=== PATIENT | female | born 1940 | race Caucasian/White ===

== ENCOUNTER 2016-11-14 18:56 | Inpatient (IN) ==
--- OUTSIDE RECORDS SUMMARY | 2016-11-14 19:11 | External Medical Summary | Referral Summary ---
:1940 Author Organization [facility] Address [address] [place] [address] Care Team Providers Name Role Phone Kvng Andrew Primary Care Physician Encounter VC Date(s): 01/20/15 - 01/20/15 [facility] [address] [place] [address]- [place] Discharge Diagnosis: Plantar fasciitis of right foot Discharge Disposition: 01-Home or Self Care Attending Physician: Surya Shah DPM Admitting Physician: Surya Shah DPM Referring Physician: Kvng Andrew MD Vital Signs No data available for this section Problem List Condition Effective Dates Status Health Status Informant Allergic rhinitis due to other Active allergen(Confirmed) Allergic rhinitis due to other Active allergen(Confirmed) Allergies(Confirmed) Resolved Asthma(Confirmed) Resolved BRCA gene positive(Confirmed) Active Cancer of breast(Confirmed) Active Hay fever(Confirmed) Active Hypothyroidism (disorder)(Confirmed) Active Mixed hyperlipidemia(Confirmed) Active Asthma without status asthmaticus Active (disorder)(Confirmed) Osteoporosis(Confirmed) Resolved Postsurgical Active hypothyroidism(Confirmed) Swelling of limb Active (finding)(Confirmed) Allergies, Adverse Reactions, Alerts Substance Reaction Severity Status aspirin uNspecfied Active divalproex sodium uNspecfied Active risperiDONE Active simvastatin Active Medications Astelin 137 mcg/inh nasal spray 2 sprays, Nasal, BID, # 1 Each, 11 Refill(s) Start Date: 07/21/14 Status: Orderedatorvastatin 10 mg oral tablet 1 tabs, Oral, Daily, # 90 tabs, 3 Refill(s) Start Date: 01/24/14 Status: OrderedAyr Saline Nasal Mist sprays, Nasal, QID, 0 Refill(s) Start Date: 01/12/15 Status: Orderedcalcium gluconate 500 mg oral tablet 1 tabs, Oral, TID, # 100 tabs, 0 Refill(s) Start Date: 09/28/13 Status: Orderedcetirizine 10 mg oral tablet 10 mg 1 tabs, Oral, Daily, # 30 tabs, 0 Refill(s) Start Date: 01/12/15 Status: Orderedfluticasone 50 mcg/inh nasal spray 2 sprays, Nasal, BID, # 3 bottles, 3 Refill(s) Start Date: 01/24/14 Status: Orderedmeloxicam 7.5 mg oral tablet 7.5 mg 1 tabs, Oral, Daily, # 30 tabs, 3 Refill(s), Pharmacy: [facility], 1 tabs Oral Daily Start Date: 01/20/15 Status: OrderedMoviPrep oral powder for reconstitution 4,000 mL, Oral, Daily, as directed on package labeling, # 4,000 mL, 0 Refill(s) , Pharmacy: [facility] Start Date: 07/01/14 Status: Orderedmultivitamin 1 tabs, Oral, Daily, 0 Refill(s) Start Date: 09/28/13 Status: OrderedProlia 60 mg, SubCutaneous, q6mo, DX M81.0 See order comments and scanned documents for details, 0 Refill(s) Start Date: 01/17/15 Status: OrderedRefresh Dry Eye Therapy ophthalmic solution 1 drops, Eye-Both, BID, as needed for dry eyes, # 30 mL, 0 Refill(s) Start Date: 09/28/13 Status: OrderedSingulair 10 mg oral tablet 10 mg 1 tabs, Oral, qPM, as needed for allergies, 0 Refill(s) Start Date: 01/12/15 Status: OrderedSynthroid 75 mcg (0.075 mg) oral tablet 1 tabs, Oral, Daily, # 90 tabs, 3 Refill(s) Start Date: 01/24/14 Status: Orderedtriamcinolone 0.1% topical cream 1 cinthia, Topical, BID, # 60 g, 1 Refill(s), Pharmacy: [facility] Start Date: 05/17/14 Status: OrderedVentolin HFA 90 mcg/inh inhalation aerosol See Instructions, 2-4 puffs every 4-6 hrs prn., # 3 Each, 0 Refill(s) Start Date: 01/18/14 Status: Ordered Results No data available for this section Immunizations Vaccine Date Refusal Reason tetanus/diphth/pertuss (Tdap) adult/adol 07/16/11 influenza virus vaccine, live 02/22/11 influenza virus vaccine, live 02/05/07 pneumococcal 23-polyvalent vaccine 07/16/11 pneumococcal 23-polyvalent vaccine 02/04/03 tetanus-diphth toxoids (Td) adult/adol 01/28/07 tetanus-diphth toxoids (Td) adult/adol 09/12/96 zoster vaccine live 07/16/11 Procedures Procedure Date Related Diagnosis Body Site Colonoscopy, flexible; diagnostic, including 07/14/14 collection of specimen(s) by brushing or washing, when performed (separate procedure) Bilateral oophorectomy 2009 Oophorectomy 2008 Nasal polyp 2008 Sinus Surgery 2007 feet 2006 Tonsillectomy 1994 Thyroidectomy 1994 Hysterectomy 1974 Colectomy Social History Social History Type Response Smoking Status Never smoker Assessment and Plan Extracted from: Title: Ambulatory Patient Education Author: Surya Shah DPM Date: 01/20/15 Musculoskeletal Plantar Fasciitis Plantar fasciitis is a common condition that causes foot pain. It is soreness ( inflammation) of the band of tough fibrous tissue on the bottom of the foot that runs from the heel bone (calcaneus) to the ball of the foot. The cause of this soreness may be from excessive standing, poor fitting shoes, running on hard surfaces, being overweight, having an abnormal walk, or overuse (this is common in runne rs) of the painful foot or feet. It is also common in aerobic exercise dancers and ballet dancers. SYMPTOMS Most people with plantar fasciitis complain of: Severe pain in the morning on the bottom of their foot especially when taking the first steps out of bed. This pain recedes after a few minutes of walking. Severe pain is experienced also during walking following a long period of inactivity. Pain is worse when walking barefoot or up stairs DIAGNOSIS Your caregiver will diagnose this condition by examining and feeling your foot. Special tests such as X-rays of your foot, are usually not needed. PREVENTION Consult a sports medicine professional before beginning a new exercise program. Walking programs offer a good workout. With walking there is a lower chance of overuse injuries common to runners. There is less impact and less jarring of the joints. Begin all new exercise programs slowly. If problems or pain develop, decrease the amount of time or distance until you are at a comfortable level. Wear good shoes and replace them regularly. Stretch your foot and the heel cords at the back of the ankle (Achilles tendon) both before and after exercise. Run or exercise on even surfaces that are not hard. For example, asphalt is better than pavement. Do not run barefoot on hard surfaces. If using a treadmill, vary the incline. Do not continue to workout if you have foot or joint problems. Seek professional help if they do not improve. HOME CARE INSTRUCTIONS Avoid activities that cause you pain until you recover. Use ice or cold packs on the problem or painful areas after working out. Only take [id number] or prescription medicines for pain, discomfort , or fever as directed by your caregiver. Soft shoe inserts or athletic shoes with air or gel sole cushions may be helpful. If problems continue or become more severe, consult a sports medicine caregiver or your own health care provider. Cortisone is a potent anti- inflammatory medication that may be injected into the pa inful area. You can discuss this treatment with your caregiver. MAKE SURE YOU: Understand these instructions. Will watch your condition. Will get help right away if you are not doing well or get worse. Document Released: 12/17/2001 Document Revised: 06/15/2012 Document Reviewed: 02/15/2009 [facility] Patient Information 2015 [email or web address] [facility]. This information is not intended to replace advice given to you by your health care provider. Make sure you discuss any questions you have with your health care provider. No follow up information was provided. Extracted from: Title: Office Visit Note Author: Surya Shah DPGracie Date: 01/20/15 Assessment/Plan Plantar fasciitis of right foot -We discussed the etiology of heel pain in details. -Reviewed X ray of right heel. -We discussed treatment options including medication, physical therapy, arch support from clinic, cortisone injection, or WBAT in a cam walker. -Patient is to perform calf stretching exercise daily and a handout was given. -Avoid barefoot walking. -Patient was fitted with arch support today. -Discussed proper footwear. -Recommended night splint. -Follow-up in 1 month. Orders: meloxicam, 7.5 mg 1 tabs, Oral, Daily, # 30 tabs, 3 Refill(s), Pharmacy: [facility], 1 tabs Oral Daily
--- OUTSIDE RECORDS SUMMARY | 2016-11-14 19:11 | External Medical Summary | Referral Summary ---
:1940 Author Organization [facility] Address [address] [place] [address] Care Team Providers Name Role Phone Kvng Andrew Primary Care Physician Encounter VC Date(s): 07/26/15 - 07/26/15 [facility] [address] [place] [address]- [place] Discharge Diagnosis: Medicare annual wellness visit, subsequent Discharge Disposition: 01-Home or Self Care Attending Physician: Kvng Andrew MD Admitting Physician: Kvng Andrew MD Vital Signs Most recent to oldest [Reference Range]: 1 Peripheral Pulse Rate [60-100 bpm] 72 bpm (07/26/15 1:11 PM) Blood Pressure [90-140/60-90 mmHg] 122/60 mmHg (07/26/15 1:11 PM) Problem List Condition Effective Dates Status Health Status Informant Allergic rhinitis due to other Active allergen(Confirmed) Allergies(Confirmed) Resolved Asthma(Confirmed) Resolved BRCA gene positive(Confirmed) Active Cancer of breast(Confirmed) Active Medicare annual wellness visit, Active subsequent(Confirmed) Mixed hyperlipidemia(Confirmed) Active Asthma without status asthmaticus Active (disorder)(Confirmed) Osteoporosis(Confirmed) Resolved Postsurgical Active hypothyroidism(Confirmed) Allergies, Adverse Reactions, Alerts Substance Reaction Severity Status aspirin uNspecfied Active divalproex sodium uNspecfied Active risperiDONE Active simvastatin Active Medications Advair HFA 115 mcg-21 mcg/inh inhalation aerosol 2 puffs, Inhalation, BID, # 3 Each, 3 Refill(s) Start Date: 02/13/15 Status: Orderedatorvastatin 10 mg oral tablet 10 mg 1 tabs, Oral, Daily, # 90 tabs, 3 Refill(s) Start Date: 02/13/15 Status: Orderedazelastine 137 mcg/inh ( 0.1%) nasal spray 2 sprays, Nasal, BID, # 1 Each, 11 Refill(s), [facility]: [facility] Start Date: 07/26/15 Status: Orderedcalcium gluconate 500 mg oral tablet 1 tabs, Oral, TID, # 100 tabs, 0 Refill(s) Start Date: 09/28/13 Status: OrderedDelsym 60 mg, Oral, q12hr, OTC, 0 Refill(s) Start Date: 07/24/15 Status: OrderedFlonase 50 mcg/inh nasal spray 2 sprays, Nasal, BID, # 16 g, 0 Refill(s), [facility]: [facility] Start Date: 07/26/15 Status: OrderedFlovent HFA 44 mcg/inh inhalation aerosol 1 puffs, Inhalation, BID, # 1 Each, 5 Refill(s), [facility]: [facility] Start Date: 07/26/15 Status: OrderedMoviPrep oral powder for reconstitution 4,000 mL, Oral, Daily, as directed on package labeling, # 4,000 mL, 0 Refill(s) , [facility] Start Date: 07/01/14 Status: Orderedmultivitamin 1 tabs, Oral, Daily, 0 Refill(s) Start Date: 09/28/13 Status: OrderedRefresh Dry Eye Therapy ophthalmic solution 1 drops, Eye-Both, BID, as needed for dry eyes, # 30 mL, 0 Refill(s) Start Date: 09/28/13 Status: OrderedSynthroid 75 mcg (0.075 mg) oral tablet 75 mcg 1 tabs, Oral, Daily, # 90 tabs, 3 Refill(s) Start Date: 02/13/15 Status: OrderedVentolin HFA 90 mcg/inh inhalation aerosol [...] Oophorectomy 2008 Nasal polyp 2008 Sinus Surgery 2008 feet 2006 Tonsillectomy 1995 Thyroidectomy 1994 Hysterectomy 1974 Colectomy Social History Social History Type Response Smoking Status Never smoker Assessment and Plan Extracted from: Title: AWV Author: Kvng Andrew MD Date: 07/26/15 Assessment/Plan Medicare annual wellness visit, subsequent Please see the Medicare visit documented by Lo Salcido. Fall risk assessment: done. No risk. see Medicare Visit. PHQ-2 depression screen done. negative for depression. Functional assessment: done . See Medicare visit. Home safety questionnaire discussed. see Medicare Visit. End of life care discussion. DPOA copy in file. Establish current providers and suppliers: See Medicare Visit Preventative counseling and health education related to risk factors Dementia screen, negative for dementia. Mini cog recall 3/3, CDT Normal. scanned screened test result. Vision and hearing screen documented in medicare visit. Physical examination done.Gave patient written instruction on schedules of preventive testing, and vaccinations. Orders: BD Bone Density DEXA Axial Skeleton BD Bone Density DEXA Axial Skeleton
--- OUTSIDE RECORDS SUMMARY | 2016-11-14 19:11 | External Medical Summary | Referral Summary ---
:1940 Author Organization [facility] Internal [facility] Address [address] [place] [address] Care Team Providers Name Role Phone Kvng Andrew Primary Care Physician Encounter VC Date(s): 12/09/14 - 12/09/14 [facility] [address] [place] [address]- Discharge Diagnosis: Pain of right heel Discharge Diagnosis: Rubor Discharge Diagnosis: Decreased pulses in feet Discharge Diagnosis: Right leg claudication Discharge Disposition: 01-Home or Self Care Attending Physician: Anita Brito Admitting Physician: Anita Brito Vital Signs Most recent to oldest [Reference Range]: 1 Peripheral Pulse Rate [60-100 bpm] 74 bpm (12/09/14 9:54 AM) Blood Pressure [90-140/60-90 mmHg] 140/82 mmHg (12/09/14 9:54 AM) Problem List Condition Effective Dates Status Health [...] Each, 3 Refill(s) Start Date: 02/13/15 Status: OrderedAstelin 137 mcg/inh nasal spray 2 sprays, Nasal, BID, # 1 Each, 11 Refill(s) Start Date: 07/21/14 Status: Orderedatorvastatin 10 mg oral tablet 10 mg 1 tabs, Oral, Daily, # 90 tabs, 3 Refill(s) Start Date: 02/13/15 Status: OrderedAyr Saline Nasal Mist sprays, Nasal, [...] Daily, # 30 tabs, 3 Refill(s), Pharmacy: [facility], 1 tabs Oral Daily Start Date: 01/20/15 Status: OrderedMoviPrep oral powder for reconstitution 4,000 mL, Oral, Daily, as directed on package labeling, # 4,000 mL, 0 Refill(s) , Pharmacy: [facility] Start Date: 07/01/14 Status: Orderedmultivitamin [...] tabs, 3 Refill(s) Start Date: 02/13/15 Status: Orderedtriamcinolone 0.1% topical cream 1 cinthia, Topical, BID, # 60 g, 1 Refill(s), Pharmacy: [facility] Start Date: 05/17/14 Status: OrderedVentolin HFA [...] performed (separate procedure) Bilateral oophorectomy 2009 Oophorectomy 2009 Nasal polyp 2008 Sinus Surgery 2008 feet 2006 Tonsillectomy 1995 Thyroidectomy 1994 Hysterectomy 1974 Colectomy Social History Social History Type Response Smoking Status Never smoker Assessment and Plan Extracted from: Title: Office Visit Note Author: Anita Brito Date: 12/09/14 Assessment/Plan 1.Pain of right heel Heel cup, Ice to heel- about 20min/day, XR to r/o fx 2.Rubor sx of arterial insuff. Will get bilat arterial U/S of LE. 3.Decreased pulses in feet check arterial U/S of LE 4.Right leg claudication arterial U/S Next appt 01/12/15
--- OUTSIDE RECORDS SUMMARY | 2016-11-14 19:11 | External Medical Summary | Referral Summary ---
:1940 Author Organization [facility], Internal Medicine Address [address] [place] [address] Care Team Providers Name Role Phone Kvng Andrew Primary Care Physician Encounter VC Date(s): 01/12/15 - 01/12/15 [facility] [address] [place] [address]- [place] Discharge Diagnosis: Asthma without status asthmaticus (disorder) Discharge Diagnosis: Osteoporosis Discharge Diagnosis: Postsurgical hypothyroidism Discharge Diagnosis: Allergic rhinitis due to other allergen Discharge Diagnosis: Mixed hyperlipidemia Discharge Disposition: 01-Home or Self Care Attending Physician: Kvng Andrew MD Admitting Physician: Kvng Andrew MD Referring Physician: Kvng Andrew MD Vital Signs Most recent to oldest [Reference Range]: 1 Peripheral Pulse Rate [60-100 bpm] 72 bpm (01/12/15 1:07 PM) Blood Pressure [90-140/60-90 mmHg] 120/70 mmHg (01/12/15 1:07 PM) Problem List Condition Effective Dates Status [...] Daily, # 30 tabs, 3 Refill(s), Pharmacy: [facility], 1 tabs Oral Daily Start Date: 01/20/15 Status: OrderedMoviPrep oral powder for reconstitution 4,000 mL, Oral, Daily, as directed on package labeling, # 4,000 mL, 0 Refill(s) , Pharmacy: [facility] Start Date: 07/01/14 Status: Orderedmultivitamin [...] BID, # 60 g, 1 Refill(s), Pharmacy: [facility] Start Date: 05/17/14 Status: OrderedVentolin HFA 90 [...] 2008 Sinus Surgery 2008 feet 2006 Tonsillectomy 1994 Thyroidectomy 1994 Hysterectomy 1974 Colectomy Social History Social History Type Response Smoking Status Never smoker Assessment and Plan Extracted from: Title: Office Visit Note Author: Kvng Andrew MD Date: 01/12/15 Assessment/Plan 1.Postsurgical hypothyroidism TSH 1.41, in target range. continue the current levothyroxine. 2.Mixed hyperlipidemia lipid in the target range. continue atorvastatin and low fat diet. 3.Allergic rhinitis due to other allergen on azelastine, Flonase and nasal spray. continue f/u with map and chart mounter. 4.Asthma without status asthmaticus (disorder) restart Advair. 5.Osteoporosis I reviewed her DEXA with her. she has intolerance to Fosamax and Boniva per history. I pre-authorization Prolia.I discussed with her the benefit and possible side effect of the medication. f/u in 6 month.
--- OUTSIDE RECORDS SUMMARY | 2016-11-14 19:11 | External Medical Summary | Referral Summary ---
:1940 Author Organization [facility] Address [address] [place] [address] Care Team Providers Name Role Phone Kvng Andrew Primary Care Physician Encounter VC Date(s): 04/24/16 - 04/24/16 [facility] [address] [place] [address] - [place] Discharge Diagnosis: Asthma Discharge Disposition: 01-Home or Self Care Attending Physician: Nabil Hammond MD Admitting Physician: Nabil Hammond MD Referring Physician: Nabil Hammond MD Vital Signs No data available for this section Problem List Condition Effective Dates Status Health Status Informant Allergic rhinitis due to other Active allergen(Confirmed) Allergies(Confirmed) Resolved Asthma(Confirmed) Active BMI 29.0-29.9,adult(Confirmed) Active BRCA gene positive(Confirmed) Active Cancer of breast(Confirmed) [...] # 3 Each, 3 Refill(s) Start Date: 02/13/16 Status: Orderedatorvastatin 10 mg oral tablet 10 mg 1 tabs, Oral, Daily, # 90 tabs, 3 Refill(s) Start Date: 02/13/16 Status: Orderedazelastine 137 mcg/inh ( 0.1%) nasal [...] # 4,000 mL, 0 Refill(s) , Pharmacy: [facility] Start Date: 07/01/14 Status: Orderedmultivitamin 1 tabs, Oral, Daily, 0 Refill(s) Start Date: 09/28/13 Status: OrderedRefresh Dry Eye Therapy ophthalmic solution 1 drops, Eye-Both, BID, as needed for dry eyes, # 30 mL, 0 Refill(s) Start Date: 09/28/13 Status: OrderedSpiriva Respimat 1.25 mcg/inh inhalation aerosol 2 puffs, Inhalation, Daily, # 4 g, 12 Refill(s) Start Date: 04/24/16 Status: OrderedSynthroid 75 mcg (0.075 mg) oral tablet 75 mcg 1 tabs, Oral, Daily, # 90 tabs, 3 Refill(s) Start Date: 02/13/16 Status: OrderedVentolin HFA 90 mcg/inh inhalation aerosol See Instructions, 2-4 puffs every 4-6 hrs prn., # 3 Each, 0 Refill(s) Start Date: 01/18/14 Status: Ordered Results No data available for this section Immunizations Given and Recorded Vaccine Date Status Refusal Reason tetanus/diphth/pertuss (Tdap) adult/adol 07/16/11 Recorded influenza virus vaccine, inactivated 02/13/16 Given influenza virus vaccine, live 02/22/11 Given influenza virus vaccine, live 02/05/07 Given pneumococcal 13-valent conjugate vaccine1 02/02/14 Recorded pneumococcal 23-polyvalent vaccine 07/16/11 Recorded pneumococcal 23-polyvalent vaccine 02/04/03 Recorded tetanus-diphth toxoids (Td) adult/adol 01/28/07 Given tetanus-diphth toxoids (Td) adult/adol 09/12/96 Given zoster vaccine live 07/16/11 Given 1Location History: [facility] Procedures Procedure Date Related Diagnosis Body Site Colonoscopy, flexible; diagnostic, including 07/14/14 collection of specimen(s) by brushing or washing, when performed (separate procedure) Bilateral oophorectomy 2009 Oophorectomy 2008 Nasal polyp 2008 Sinus Surgery 2008 feet 2006 Tonsillectomy 1994 Thyroidectomy 1994 Hysterectomy 1974 Colectomy Social History Social History Type Response Smoking Status Never smoker Assessment and Plan No data available for this section
--- OUTSIDE RECORDS SUMMARY | 2016-11-14 19:11 | External Medical Summary | Referral Summary ---
:1940 Author Organization [facility] Internal [facility] Address [address] [place] [address] Care Team Providers Name Role Phone Kvng Andrew Primary Care Physician Encounter VC Date(s): 12/14/15 - 12/14/15 [facility] [address] [place] [address]- [place] Discharge Diagnosis: Allergic rhinitis due to pollen Discharge Diagnosis: Moderate persistent asthma, uncomplicated Discharge Diagnosis: Mixed hyperlipidemia Discharge Disposition: 01-Home or Self Care Attending Physician: Kvng Andrew MD Admitting Physician: Kvng Andrew MD Vital Signs Most recent to oldest [Reference Range]: 1 Temperature Oral [35.8-37.3 degC] 36.7 degC (12/14/15 9:55 AM) Peripheral Pulse Rate [60-100 bpm] 57 bpm *LOW* (12/14/15 9:55 AM) Blood Pressure [90-140/60-90 mmHg] 144/84 mmHg *HI* (12/14/15 9:55 AM) SpO2 94 % (12/14/15 9:55 AM) Problem List Condition Effective Dates Status [...] # 4,000 mL, 0 Refill(s) , [facility] Start Date: 07/01/14 Status: Orderedmultivitamin [...] # 3 Each, 0 Refill(s) Start Date: 10/14/14 Status: Ordered Results Hematology Most recent to oldest [Reference Range]: 1 WBC [4.8-10.8 10*3/uL] 9.4 10*3/uL (12/14/15 10:47 AM) RBC [4.00-5.20] 4.49 (12/14/15 10:47 AM) Hgb [12.0-16.0 gm/dL] 13.4 gm/dL (12/14/15 10:47 AM) Hct [37.0-47.0 %] 39.3 % (12/14/15 10:47 AM) MCV [82.0-99.0 fL] 87.5 fL (12/14/15 10:47 AM) MCH [27.0-32.0 pg] 29.8 pg (12/14/15 10:47 AM) MCHC [32.0-36.0 gm/dL] 34.1 gm/dL (12/14/15 10:47 AM) RDW [11.5-14.5 %] 14.7 % *HI* (12/14/15 10:47 AM) Platelet [150-400 10*3/uL] 245 10*3/uL (12/14/15 10:47 AM) MPV [8.8-14.8 fL] 10.7 fL (12/14/15 10:47 AM) Immature Granulocytes [0.0-1.0 %] 0.1 % (12/14/15 10:47 AM) Neutrophils [51-75 %] 71 % (12/14/15 10:47 AM) Lymphocytes [20-46 %] 15 % *LOW* (12/14/15 10:47 AM) Monocytes [4-11 %] 6 % (12/14/15 10:47 AM) Eosinophils [0-4 %] 6 % *HI* (12/14/15 10:47 AM) Basophils [0-2 %] 0 % (12/14/15 10:47 AM) Neutro Absolute [1.90-7.00 10*3] 6.69 10*3 (12/14/15 10:47 AM) Lymph Absolute [0.80-3.30 10*3] 1.44 10*3 (12/14/15 10:47 AM) [place] Absolute [0.30-1.00 10*3] 0.59 10*3 (12/14/15 10:47 AM) Eos Absolute [0.00-0.50 10*3] 0.60 10*3 *HI* (12/14/15 10:47 AM) Baso Absolute [0.00-0.20 10*3] 0.04 10*3 (12/14/15 10:47 AM) Chemistry Most recent to oldest [Reference Range]: 1 Sodium Lvl [135-144 mEq/L] 138 mEq/L (12/14/15 10:47 AM) Potassium Lvl [3.5-5.2 mEq/L] 3.7 mEq/L (12/14/15 10:47 AM) Chloride [99-111 mEq/L] 102 mEq/L (12/14/15 10:47 AM) CO2 [22-31 mEq/L] 26 mEq/L (12/14/15 10:47 AM) AGAP [3-20] 10 (12/14/15 10:47 AM) BUN [10-20 mg/dL] 12 mg/dL (12/14/15 10:47 AM) Glucose Lvl [70-99 mg/dL] 83 mg/dL (12/14/15 10:47 AM) Creatinine Lvl [0.57-1.11 mg/dL] 0.76 mg/dL (12/14/15 10:47 AM) eGFR [>60 mL/min] >60 mL/min 1 (12/14/15 10:47 AM) Calcium Lvl [8.9-10.5 mg/dL] 9.6 mg/dL (12/14/15 10:47 AM) Albumin Lvl [3.4-4.8 gm/dL] 4.4 gm/dL (12/14/15 10:47 AM) Total Protein [6.0-7.6 gm/dL] 7.0 gm/dL (12/14/15 10:47 AM) Globulin [1.8-4.0 gm/dL] 2.6 gm/dL (12/14/15 10:47 AM) ALT [0-55 U/L] 26 U/L (12/14/15 10:47 AM) AST [5-34 U/L] 27 U/L (12/14/15 10:47 AM) Alk Phos [40-150 U/L] 118 U/L (12/14/15 10:47 AM) Bili Total [0.2-1.2 mg/dL] 0.4 mg/dL (12/14/15 10:47 AM) Chol [0-199 mg/dL] 164 mg/dL (12/14/15 10:47 AM) Trig [0-149 mg/dL] 140 mg/dL (12/14/15 10:47 AM) HDL [40-84 mg/dL] 57 mg/dL (12/14/15 10:47 AM) LDL [0-130 mg/dL] 79 mg/dL (12/14/15 10:47 AM) VLDL Cholesterol [0-28 mg/dL] 28 mg/dL (12/14/15 10:47 AM) Cardiac Risk [0.0-5.0] 2.9 (12/14/15 10:47 AM) 1Result Comment: Multiply eGFR results by 1.21 for race. Immunizations Vaccine Date Refusal Reason tetanus/diphth/pertuss (Tdap) [...]
--- OUTSIDE RECORDS SUMMARY | 2016-11-14 19:11 | External Medical Summary | Referral Summary ---
:1940 Author Organization [facility] Address [address] [place] [address] Care Team Providers Name Role Phone Kamran Kvng Primary Care Physician Encounter VC Date(s): 06/26/15 - 06/26/15 [facility] [address] [place] [address] - [place] Discharge Disposition: 01-Home or Self Care Attending Physician: Provider, Immediate Care Attending Physician: Fanny Camilo MD Admitting Physician: Provider, Immediate Care Vital Signs Most recent to oldest [Reference Range]: 1 Temperature Oral [35.8-37.3 degC] 36.4 degC (06/26/15 11:17 AM) Peripheral Pulse Rate [60-100 bpm] 71 bpm (06/26/15 11:17 AM) Blood Pressure [90-140/60-90 mmHg] 160/90 mmHg *HI* (06/26/15 11:17 AM) SpO2 93 % (06/26/15 11:17 AM) Problem List Condition Effective Dates Status [...] tabs, 3 Refill(s) Start Date: 02/13/15 Status: OrderedAugmentin 875 mg-125 mg oral tablet 1 tabs, Oral, q12hr, X 10 days, # 20 tabs, 0 Refill(s), [facility] Start Date: 06/26/15 Stop Date: 07/06/15 Status: OrderedAyr Saline Nasal Mist sprays, Nasal, [...] Daily, # 30 tabs, 3 Refill(s), Pharmacy: [facility], 1 tabs Oral Daily Start Date: 01/20/15 Status: OrderedMoviPrep oral powder for reconstitution 4,000 mL, Oral, Daily, as directed on package labeling, # 4,000 mL, 0 Refill(s) , Pharmacy: [facility] Start Date: 07/01/14 Status: Orderedmultivitamin [...] BID, # 60 g, 1 Refill(s), Pharmacy: [facility] Start Date: 05/17/14 Status: OrderedVentolin HFA 90 [...] Extracted from: Title: Office Visit Note Author: Fanny Camilo MD Date: 06/26/15 Assessment/Plan 1.Right otitis media rx of aumentin bid for 10 days and recommend tylenol tid as needed. 2.Sinusitis May continue on flonase and anti-histamine as needed then f/u with her PCP in a week if Sx not resolving. Orders: amoxicillin-clavulanate, 1 tabs, Oral, q12hr, X 10 days, # 20 tabs, 0 Refill(s), Pharmacy: [facility]
--- OUTSIDE RECORDS SUMMARY | 2016-11-14 19:11 | External Medical Summary | Referral Summary ---
:1940 Author Organization [facility] Address [address] [place] [address] Care Team Providers Name Role Phone Kvng Andrew Primary Care Physician Encounter VC Date(s): 12/23/14 - 12/23/14 [facility] [address] [place] [address]- [place] Discharge Disposition: 01-Home or Self Care Attending Physician: Anita Brito Admitting Physician: Anita Brito Vital Signs No data available for this section Problem List Condition Effective Dates Status Health Status Informant Allergic rhinitis due to other Active allergen(Confirmed) Allergic rhinitis due to other Active allergen(Confirmed) Allergies(Confirmed) Resolved Asthma(Confirmed) Resolved BRCA gene positive(Confirmed) Active Cancer of breast(Confirmed) Active Hay fever(Confirmed) Active Hypothyroidism (disorder)(Confirmed) Active Medicare annual wellness visit, Active subsequent(Confirmed) [...] days, # 20 tabs, 0 Refill(s), Pharmacy: [facility] Start Date: 06/26/15 Stop Date: 07/06/15 Status: OrderedAyr Saline Nasal Mist sprays, Nasal, QID, 0 Refill(s) Start Date: 01/12/15 Status: Orderedcalcium gluconate 500 mg oral tablet 1 tabs, Oral, TID, # 100 tabs, 0 Refill(s) Start Date: 09/28/13 Status: Orderedfluticasone 50 mcg/inh nasal spray 2 sprays, Nasal, BID, # 3 bottles, 3 Refill(s) Start Date: 01/24/14 Status: OrderedMoviPrep oral powder for reconstitution 4,000 mL, Oral, Daily, as directed on package labeling, # 4,000 mL, 0 Refill(s) , Pharmacy: [facility] Start Date: 07/01/14 Status: Orderedmultivitamin 1 tabs, [...]
--- OUTSIDE RECORDS SUMMARY | 2016-11-14 19:11 | External Medical Summary | Referral Summary ---
:1940 Author Organization [facility] Address [address] [place] [address] Care Team Providers Name Role Phone Kvng Andrew Primary Care Physician Encounter VC Date(s): 07/24/15 - 07/24/15 [facility] [address] [place] [address] - [place] Discharge Diagnosis: Asthma Discharge Disposition: 01-Home or Self Care Attending Physician: Nabil Hammond MD Admitting Physician: Nabil Hammond MD Vital Signs No [...] tabs, 3 Refill(s) Start Date: 02/13/15 Status: Orderedcalcium gluconate 500 mg oral tablet 1 tabs, Oral, TID, # 100 tabs, 0 Refill(s) Start Date: 09/28/13 Status: OrderedDelsym 60 mg, Oral, q12hr, OTC, 0 Refill(s) Start Date: 07/24/15 Status: OrderedDymista 137 mcg-50 mcg/inh nasal spray 1 sprays, Nasal, BID, # 23 g, 1 Refill(s), [facility]: [facility] Start Date: 07/24/15 Status: OrderedMoviPrep oral powder for reconstitution 4,000 mL, Oral, Daily, as directed on package labeling, # 4,000 mL, 0 Refill(s) , Pharm[facility]: [facility] Start Date: 07/01/14 Status: Orderedmultivitamin 1 tabs, Oral, Daily, 0 Refill(s) Start Date: 09/28/13 Status: OrderedQvar with Dose Counter 80 mcg/inh inhalation aerosol 1 puffs, Inhalation, BID, # 1 Each, 3 Refill(s), [facility]: [facility] Start Date: 07/24/15 Status: OrderedRefresh Dry Eye Therapy ophthalmic solution [...]
--- OUTSIDE RECORDS SUMMARY | 2016-11-14 19:11 | External Medical Summary | Referral Summary ---
:1940 Author Organization [facility] Address [address] [place] [address] Care Team Providers Name Role Phone Kvng Andrew Primary Care Physician Encounter VC Date(s): 01/12/15 - 01/12/15 [facility] [address] [place] [address]- [place] Discharge Diagnosis: Asthma without [...] # 4,000 mL, 0 Refill(s) , Pharmacy: [facility] Start Date: 07/01/14 Status: Orderedmultivitamin 1 tabs, [...] BID, # 60 g, 1 Refill(s), Pharmacy: [facility] Start Date: 05/17/14 Status: OrderedVentolin HFA 90 [...]
--- OUTSIDE RECORDS SUMMARY | 2016-11-14 19:11 | External Medical Summary | Referral Summary ---
:1940 Author Organization [facility] Address [address] [place] [address] Care Team Providers Name Role Phone Kvng Andrew Primary Care Physician Encounter VC Date(s): 01/12/15 - 01/12/15 [facility] [address] [place] [address]- [place] Discharge Diagnosis: Asthma without [...] Daily, # 30 tabs, 3 Refill(s), Pharmacy: [facility], 1 tabs Oral Daily Start Date: 01/20/15 Status: OrderedMoviPrep oral powder for reconstitution 4,000 mL, Oral, Daily, as directed on package labeling, # 4,000 mL, 0 Refill(s) , Pharmacy: [facility] Start Date: 07/01/14 Status: Orderedmultivitamin [...] BID, # 60 g, 1 Refill(s), Pharmacy: [facility] Start Date: 05/17/14 Status: OrderedVentolin HFA 90 [...] Flonase and nasal spray. continue f/u with ceramic tiler. 4.Asthma without status asthmaticus (disorder) restart Advair. 5.Osteoporosis I reviewed her DEXA with her. she has intolerance to Fosamax and Boniva per history. I pre-authorization Prolia.I discussed with her the benefit and possible side effect of the medication. f/u in 6 month.
--- OUTSIDE RECORDS SUMMARY | 2016-11-14 19:11 | External Medical Summary | Referral Summary ---
:1940 Author Organization [facility] Address [address] [place] [address] Care Team Providers Name Role Phone Kvng Andrew Primary Care Physician Encounter VC Date(s): 02/13/16 - 02/13/16 [facility] [address] [place] [address]- [place] Discharge Diagnosis: Postsurgical hypothyroidism Discharge Diagnosis: Moderate persistent asthma, uncomplicated Discharge Diagnosis: BMI 29.0-29.9,adult Discharge Diagnosis: Mixed hyperlipidemia Discharge Diagnosis: Allergic rhinitis due to pollen Discharge Disposition: 01-Home or Self Care Attending Physician: Kvng Andrew MD Admitting Physician: Kvng Andrew MD Vital Signs Most recent to oldest [Reference Range]: 1 Peripheral Pulse Rate [60-100 bpm] 60 bpm (02/13/16 10:57 AM) Blood Pressure [90-140/60-90 mmHg] 140/80 mmHg (02/13/16 10:57 AM) Problem List Condition Effective Dates Status Health Status Informant Allergic rhinitis due to other Active allergen(Confirmed) Allergies(Confirmed) Resolved Asthma(Confirmed) Resolved BMI 29.0-29.9,adult(Confirmed) Active BRCA gene positive(Confirmed) Active [...] 4,000 mL, 0 Refill(s) , Pharmacy: [facility] Start Date: 07/01/14 Status: [...] tetanus/diphth/pertuss (Tdap) adult/adol 07/16/11 influenza virus vaccine, inactivated 02/13/16 influenza virus vaccine, live 02/22/11 influenza virus vaccine, live 02/05/07 pneumococcal 13-valent conjugate vaccine1 02/02/14 pneumococcal 23-polyvalent vaccine 07/16/11 pneumococcal 23-polyvalent vaccine 02/04/03 tetanus-diphth toxoids (Td) adult/adol 01/28/07 tetanus-diphth toxoids (Td) adult/adol 09/12/96 zoster vaccine live 07/16/11 1Location History: [facility] Procedures Procedure Date Related Diagnosis Body Site [...] Visit Note Author: Kvng Andrew MD Date: 02/13/16 Assessment/Plan 1.Mixed hyperlipidemia check lipid profile and CMP next visit. Continue the current medication, atorvastatin and low fat diet. Ordered: CBC w/ Differential Comprehensive Metabolic Panel Lipid Panel Return to Clinic 2.Postsurgical hypothyroidism C ontinue the current dose of levothyroxine. check TSH. Ordered: Return to Clinic 3.Allergic rhinitis due to pollen continue the nasal sprays. 4.Moderate persistent asthma, uncomplicated controlled with Advair. refill medications. She uses Flovent in the low allergy seasons. 5.BMI 29.0-29.9,adult I do not think she need to loss weight. It is fine as long as she does not gain weight. I advised her to exercise regularly. Need for influenza vaccination Refill atorvastatin, levothyroxine, Advair f/u 3 month fasting lab before visit, CBC, CMP, Lipid re:e78.2,TSH re: e03.4 Referrals to Other Providers Referred by: Kvng Andrew MD
--- OUTSIDE RECORDS SUMMARY | 2016-11-14 19:11 | External Medical Summary | Referral Summary ---
:1940 Author Organization [facility] Address [address] [place] [address] Care Team Providers Name Role Phone Kvng Andrew Primary Care Physician Encounter VC Date(s): 02/17/15 - 02/17/15 [facility] [address] [place] [address]- [place] Discharge Diagnosis: Plantar fasciitis of right foot Discharge Disposition: 01-Home or Self Care Attending Physician: Surya Shah DPM Admitting Physician: Surya Shah DPM Vital Signs No data available for this [...] Daily, # 30 tabs, 3 Refill(s), Pharmacy: [facility], 1 tabs Oral Daily Start Date: 01/20/15 Status: OrderedMoviPrep oral powder for reconstitution 4,000 mL, Oral, Daily, as directed on package labeling, # 4,000 mL, 0 Refill(s) , Pharmacy: [facility] Start Date: 07/01/14 Status: Orderedmultivitamin 1 [...] BID, # 60 g, 1 Refill(s), Pharmacy: [facility] Start Date: 05/17/14 Status: OrderedVentolin HFA [...] Title: Office Visit Note Author: Surya Shah DPM Date: 02/17/15 Assessment/Plan Plantar fasciitis of right foot Resolved. Recommended continuation ofarch support and daily calf stretching exercises to prevent recurrence. Prescription for arch support from [facility] was given to the patient. Follow-up if condition worsens.
--- OUTSIDE RECORDS SUMMARY | 2016-11-14 19:12 | External Medical Summary | Referral Summary ---
:1940 Author Organization [facility] Address [address] [place] [address] Care Team Providers Name Role Phone Kvng Andrew Primary Care Physician Encounter VC Date(s): 05/28/16 - 05/28/16 [facility] [address] [place] [address]- [place] Discharge Diagnosis: Allergic rhinitis due to pollen Discharge Diagnosis: Postsurgical hypothyroidism Discharge Diagnosis: AK (actinic keratosis) Discharge Diagnosis: Mixed hyperlipidemia Discharge Diagnosis: Medial collateral ligament sprain of knee Discharge Disposition: 01-Home or Self Care Attending Physician: Kvng Andrew MD Admitting Physician: Kvng Andrew MD Vital Signs Most recent to oldest [Reference Range]: 1 Peripheral Pulse Rate [60-100 bpm] 76 bpm (05/28/16 10:10 AM) Blood Pressure [90-140/60-90 mmHg] 130/90 mmHg (05/28/16 10:10 AM) Problem List Condition Effective Dates Status [...] # 1 Each, 5 Refill(s), [facility] Start Date: 07/26/15 Status: OrderedMoviPrep oral powder for reconstitution 4,000 mL, Oral, Daily, as directed on package labeling, # 4,000 mL, 0 Refill(s) , Pharmacy: [facility] Start Date: 07/01/14 Status: [...] every 4-6 hrs prn., # 3 Each, 3 Refill(s) Start Date: 05/28/16 Status: Ordered Results Hematology Most recent to oldest [Reference Range]: 1 WBC [4.8-10.8 10*3/uL] 10.5 10*3/uL (05/28/16 11:13 AM) RBC [4.00-5.20] 4.57 (05/28/16 11:13 AM) Hgb [12.0-16.0 gm/dL] 13.1 gm/dL (05/28/16 11:13 AM) Hct [37.0-47.0 %] 41.1 % (05/28/16 11:13 AM) MCV [82.0-99.0 fL] 89.9 fL (05/28/16 11:13 AM) MCH [27.0-32.0 pg] 28.7 pg (05/28/16 11:13 AM) MCHC [32.0-36.0 gm/dL] 31.9 gm/dL *LOW* (05/28/16 11:13 AM) RDW [11.5-14.5 %] 15.4 % *HI* (05/28/16 11:13 AM) Platelet [150-400 10*3/uL] 215 10*3/uL (05/28/16 11:13 AM) MPV [8.8-14.8 fL] 11.7 fL (05/28/16 11:13 AM) Immature Granulocytes [0.0-1.0 %] 0.1 % (05/28/16 11:13 AM) Neutrophils [51-75 %] 47 % *LOW* (05/28/16 11:13 AM) Lymphocytes [20-46 %] 14 % *LOW* (05/28/16 11:13 AM) Monocytes [4-11 %] 6 % (05/28/16 11:13 AM) Eosinophils [0-4 %] 32 % *HI* (05/28/16 11:13 AM) Basophils [0-2 %] 1 % (05/28/16 11:13 AM) Neutro Absolute [1.90-7.00] 4.92 (05/28/16 11:13 AM) Lymph Absolute [0.80-3.30] 1.50 (05/28/16 11:13 AM) Meigs Absolute [0.30-1.00] 0.65 (05/28/16 11:13 AM) Eos Absolute [0.00-0.50] 3.32 *HI* (05/28/16 11:13 AM) Baso Absolute [0.00-0.20] 0.08 (05/28/16 11:13 AM) Differential Scanned Slide (05/28/16: AM) Chemistry Most recent to oldest [Reference Range]: 1 Sodium Lvl [135-144 mEq/L] 142 mEq/L (05/28/16:13 AM) Potassium Lvl [3.5-5.2 mEq/L] 3.8 mEq/L (05/28/16:13 AM) Chloride [99-111 mEq/L] 105 mEq/L (05/28/16:13 AM) CO2 [22-31 mEq/L] 25 mEq/L (05/28/16:13 AM) AGAP [3-20] 12 (05/28/16:13 AM) BUN [10-20 mg/dL] 15 mg/dL (05/28/16:13 AM) Glucose Lvl [70-99 mg/dL] 84 mg/dL (05/28/16 11:13 AM) Creatinine Lvl [0.57-1.11 mg/dL] 0.86 mg/dL (05/28/16 11:13 AM) eGFR [>60 mL/min] >60 mL/min 1 (05/28/16:13 AM) Calcium Lvl [8.4-10.2 mg/dL] 9.4 mg/dL 2 (05/28/16 11:13 AM) Albumin Lvl [3.4-4.8 gm/dL] 4.0 gm/dL (05/28/16 11:13 AM) Total Protein [6.0-7.6 gm/dL] 7.4 gm/dL (05/28/16 11:13 AM) Globulin [1.8-4.0 gm/dL] 3.4 gm/dL (05/28/16 11:13 AM) ALT [0-55 U/L] 18 U/L (05/28/16 11:13 AM) AST [5-34 U/L] 25 U/L (05/28/16 11:13 AM) Alk Phos [40-150 U/L] 131 U/L (05/28/16 11:13 AM) Bili Total [0.2-1.2 mg/dL] 0.6 mg/dL (05/28/16 11:13 AM) Chol [0-199 mg/dL] 152 mg/dL (05/28/16 11:13 AM) Trig [0-149 mg/dL] 85 mg/dL (05/28/16 11:13 AM) HDL [40-84 mg/dL] 57 mg/dL (05/28/16 11:13 AM) LDL [0-130 mg/dL] 78 mg/dL (05/28/16 11:13 AM) VLDL Cholesterol [0-28 mg/dL] 17 mg/dL (05/28/16 11:13 AM) Cardiac Risk [0.0-5.0] 2.7 (05/28/16 11:13 AM) TSH with Reflex Free T4 [0.35-4.94] 1.87 (05/28/16 11:13 AM) 1Result Comment: Multiply eGFR results by 1.21 for race.2Result Comment: Please note reference range change effective 05/10/2016. Immunizations Given and Recorded Vaccine Date Status [...] Procedures Procedure Date Related Diagnosis Body Site Destruction (eg, laser surgery, electrosurgery, 05/28/16 cryosurgery, chemosurgery, surgical curettement), premalignant lesions (eg, actinic keratoses); first lesion Destruction (eg, laser surgery, electrosurgery, 05/28/16 cryosurgery, chemosurgery, surgical curettement), premalignant lesions (eg, actinic keratoses); second through 14 lesions, each (List separately in addition to code for first lesion) Colonoscopy, flexible; diagnostic, including 07/14/14 collection of specimen(s) by brushing or washing, when performed (separate procedure) Bilateral oophorectomy 2009 Oophorectomy 2008 Nasal polyp 2008 Sinus Surgery 2008 feet 2006 Tonsillectomy 1994 Thyroidectomy 1994 Hysterectomy 1974 Colectomy Social History Social History Type Response Smoking Status Never smoker Assessment and Plan Extracted from: Title: Office Visit Note Author: Kvng Andrew MD Date: 05/28/16 Assessment/Plan 1.Medial collateral ligament sprain of knee bilateral. I advised warm compression, and OTC arthritis cream. I gave patient education material from the uptodate. Ordered: Return to Clinic 2.Mixed hyperlipidemia continue the atorvastatin and low fat diet. 3.Allergic rhinitis due to pollen continue the nasal spray, and antihistamine. 4.Postsurgical hypothyroidism continue the current levothyroxine. check TSH. 5.AK (actinic keratosis) the 3 AK lesions, one in the left side nose, 2 on the left upper arm was treated with liquid N2. Procedure notes: Cryotherapy to destroy precancerous lesions. I explained to the patient about the necessary to use the liquid N2 to freeze the precancerous lesion. After patient agreed, the liquid nitrogen was carefully applied to the lesions using spray can. She tolerated the procedure well. Total 3 lesions were frozen. Ordered: Return to Clinic refill albuterol HFA. Pelvic exercise. f/u 3 month. Referrals to Other Providers Referred by: Kvng Andrew MD
--- OUTSIDE RECORDS SUMMARY | 2016-11-14 19:12 | External Medical Summary | Referral Summary ---
:1940 Author Organization [facility] Address [address] [place] [address] Care Team Providers Name Role Phone Kvng Andrew Primary Care Physician Encounter VC Date(s): 01/12/15 - 01/12/15 [facility] [address] [place] [address]- [place] Discharge Diagnosis: Asthma without [...] 4,000 mL, 0 Refill(s) , [facility]: [facility] Start Date: 07/01/14 Status: Orderedmultivitamin [...] Flonase and nasal spray. continue f/u with teacher instrumental. 4.Asthma without status asthmaticus (disorder) restart Advair. 5.Osteoporosis I reviewed her DEXA with her. she has intolerance to Fosamax and Boniva per history. I pre-authorization Prolia.I discussed with her the benefit and possible side effect of the medication. f/u in 6 month.
--- OUTSIDE RECORDS SUMMARY | 2016-11-14 19:12 | External Medical Summary | Referral Summary ---
:1940 Author Organization [facility] Address [address] [place] [address] Care Team Providers Name Role Phone Kvng Andrew Primary Care Physician Encounter VC Date(s): 01/12/15 - 01/12/15 [facility] [address] [place] [address]- [place] Discharge Diagnosis: Asthma without [...] Daily, # 30 tabs, 3 Refill(s), Pharmacy: [facility], 1 tabs Oral Daily Start Date: 01/20/15 Status: OrderedMoviPrep oral powder for reconstitution 4,000 mL, Oral, Daily, as directed on package labeling, # 4,000 mL, 0 Refill(s) , Pharmacy: [facility] Start Date: 07/01/14 Status: Orderedmultivitamin [...] BID, # 60 g, 1 Refill(s), [facility] Start Date: 05/17/14 Status: OrderedVentolin HFA 90 [...] Flonase and nasal spray. continue f/u with melter caster. 4.Asthma without status asthmaticus (disorder) restart Advair. 5.Osteoporosis I reviewed her DEXA with her. she has intolerance to Fosamax and Boniva per history. I pre-authorization Prolia.I discussed with her the benefit and possible side effect of the medication. f/u in 6 month.
--- OUTSIDE RECORDS SUMMARY | 2016-11-14 19:12 | External Medical Summary | Referral Summary ---
:1940 Author Organization [facility] Address [address] [place] [address] Care Team Providers Name Role Phone Kamran Kvng Primary Care Physician Encounter VC Date(s): 04/24/16 - 04/24/16 [facility] [address] [place] [address] - [place] Discharge Diagnosis: Moderate persistent chronic asthma without complication Discharge Diagnosis: Allergic rhinitis due to dust mite Discharge Diagnosis: Allergic conjunctivitis, bilateral Discharge Diagnosis: H/O nasal polyp Discharge Diagnosis: Allergic rhinitis due to cats Discharge Diagnosis: Chronic pansinusitis Discharge Disposition: 01-Home or Self Care Attending Physician: Nabil Hammond MD Admitting Physician: Nabil Hammond MD Referring Physician: Nabil Hammond MD Vital Signs Most recent to oldest [Reference Range]: 1 Blood Pressure [90-140/60-90 mmHg] 122/68 mmHg (04/24/16 9:30 AM) Problem List Condition Effective Dates Status [...] 4,000 mL, 0 Refill(s) , Pharmacy: [facility] Start Date: 07/01/14 Status: [...] Extracted from: Title: Office Visit Note Author: Nabil Hammond MD Date: 04/24/16 Assessment/Plan 1.Moderate persistent chronic asthma without complication Fair control Ordered: tiotropium, 2 puffs, Inhalation, Daily, # 4 g, 12 Refill(s) Office Visit Level 4 Est 93070 Return to Clinic 2.Allergic rhinitis due to cats Ordered: Office Visit Level 4 Est 19005 Return to Clinic 3.Allergic rhinitis due to dust mite Ordered: Office Visit Level 4 Est 44167 Return to Clinic 4.Allergic conjunctivitis, bilateral Ordered: Office Visit Level 4 Est 52936 Return to Clinic 5.Chronic pansinusitis Currently stable Ordered: Office Visit Level 4 Est 84411 Return to Clinic 6.H/O nasal polyp No evidence of recurrence Ordered: Office Visit Level 4 Est 67162 Return to Clinic Recommendations: Sample - Spiriva Respimat (1.25 mg) 2 puffs each morning after Advair HFA ( 115/21 g) 2 puffs twice a day Triple nasal lavage - Instructions In the morning a. Flush nasal passages with salt water (saline), then gently blow the nose. b. Takeoxymetazoline nasal spray (Afrin, other brands), 2 each nostril then wait 5-10 minutes. c. Take an intranasal steroid spray (fluticasone, Nasonex, Nasacort AQ, others) two each nostril Repeat this sequence again in the evening (about 12 hours later) Perform this routine for 5 - 7 days as directed. Further recommendations pending her response hipolito changes Schedule a return visit
--- OUTSIDE RECORDS SUMMARY | 2016-11-14 19:12 | External Medical Summary | Referral Summary ---
:1940 Author Organization [facility] Address [address] [place] [address] Care Team Providers Name Role Phone Kvng Andrew Primary Care Physician Encounter VC Date(s): 08/08/15 - 08/08/15 [facility] [address] [place] [address]- [place] Discharge Diagnosis: Mixed hyperlipidemia Discharge Diagnosis: Right medial knee pain Discharge Diagnosis: Moderate persistent asthma, uncomplicated Discharge Diagnosis: Allergic rhinitis due to pollen Discharge Disposition: 01-Home or Self Care Attending Physician: Kvng Andrew MD Admitting Physician: Kvng Andrew MD Vital Signs Most recent to oldest [Reference Range]: 1 Peripheral Pulse Rate [60-100 bpm] 76 bpm (08/08/15 9:49 AM) Blood Pressure [90-140/60-90 mmHg] 148/80 mmHg *HI* (08/08/15 9:49 AM) Problem List Condition Effective Dates Status [...] Procedures Procedure Date Related Diagnosis Body Site Injection(s); single tendon sheath, or ligament, 08/08/15 aponeurosis (eg, plantar "fascia") Colonoscopy, flexible; diagnostic, including 07/14/14 collection of specimen(s) by brushing or washing, when performed (separate procedure) Bilateral oophorectomy 2009 Oophorectomy 2009 Nasal polyp 2008 Sinus Surgery 2007 feet 2006 Tonsillectomy 1994 Thyroidectomy 1994 Hysterectomy 1974 Colectomy Social History Social History Type Response Smoking Status Never smoker Assessment and Plan Extracted from: Title: Office Visit Note Author: Kvng Andrew MD Date: 08/08/15 Assessment/Plan 1.Moderate persistent asthma, uncomplicated She still has slightly wheezing,I advised herto use the Advair regularly as prescribed. Albuterol as neededfor shortness of breath 2.Right medial knee pain Patient has severe painin the right knee,on themedial collateral ligament. Patient has severe pain in the joint, which impair the daily activity. High risk for NSAIDs, interarticular Kenalog injection is medically necessary. See procedure notes. 3.Mixed hyperlipidemia Continue the atenolol starting. 4.Allergic rhinitis due to pollen Patient has flareup of Allergy,I advised her to usethe Flonase nasal spray,azelastine nasal spray. And take antihistamine as needed. F/u in 3 month. Extracted from: Title: Ambulatory Patient Education Author: Kvng Andrew MD Date: 08/08/15 Family Medicine Joint Injection Care After Refer to this sheet in the next few days. These instructions provide you with information on caring for yourself after you have had a joint injection. Your caregiver also may give you more specific inst ructions. Your treatment has been planned according to current medical practices, but problems sometimes occur. Call your caregiver if you have any problems or questions after your procedure. After any type of joint injection, it is not uncommon to experience: Soreness, swelling, or bruising around the injection site. Mild numbness, tingling, or weakness around the injection site caused by the numbing medicine used before or with the injection. It also is possible to experience the following effects associated with the specific agent after injection: Iodine-based contrast agents: Allergic reaction (itching, hives, widespread redness, and swelling beyond the injection site). Corticosteroids (These effects are rare.): Allergic reaction. Increased blood sugar levels (If you have diabetes and you notice that your blood sugar levels have increased, notify your caregiver). Increased blood pressure levels. Mood swings. Hyaluronic acid in the use of viscosupplementation. Temporary heat or redness. Temporary rash and itching. Increased fluid accumulation in the injected joint. These effects all should resolve within a day after your procedure. HOME CARE INSTRUCTIONS Limit yourself to light activity the day of your procedure. Avoid lifting heavy objects, bending, stooping, or twisting. Take prescription or bghe-[id number] pain medication as directed by your caregiver. You may apply ice to your injection site to reduce pain and swelling the day of your procedure. Ice may be applied 03-04 times: Put ice in a plastic bag. Place a towel between your skin and the bag. Leave the ice on for no longer than 15-20 minutes each time. SEEK IMMEDIATE MEDICAL CARE IF: Pain and swelling get worse rather than better or extend beyond the injection site. Numbness does not go away. Blood or fluid continues to leak from the injection site. You have chest pain. You have swelling of your face or tongue. You have trouble breathing or you become dizzy. You develop a fever, chills, or severe tenderness at the injection site that last longer than 1 day. MAKE SURE YOU: Understand these instructions. Watch your condition. Get help right away if you are not doing well or if you get worse. This information is not intended to replace advice given to you by your health care provider. Make sure you discuss any questions you have with your health care provider. Document Released: 12/05/2011 Document Revised: 06/15/2012 Document Reviewed: 12/05/2011 ExitCare Patient Information 2015 [employer]. No follow up information was provided.
--- OUTSIDE RECORDS SUMMARY | 2016-11-14 19:12 | External Medical Summary | Referral Summary ---
:1940 Author Organization [facility] Address [address] [place] [address] Care Team Providers Name Role Phone Kvng Andrew Primary Care Physician Encounter VC Date(s): 06/29/15 - 06/29/15 [facility] [address] [place] [address]- [place] Discharge Diagnosis: Osteoporosis Discharge Diagnosis: Moderate persistent asthma, uncomplicated Discharge Diagnosis: Acute URI Discharge Diagnosis: Allergic rhinitis due to pollen Discharge Diagnosis: Mixed dyslipidemia Discharge Diagnosis: Postsurgical hypothyroidism Discharge Disposition: 01-Home or Self Care Attending Physician: Kvng Andrew MD Admitting Physician: Kvng Adnrew MD Vital Signs Most recent to oldest [Reference Range]: 1 Peripheral Pulse Rate [60-100 bpm] 64 bpm (06/29/15 10:37 AM) Blood Pressure [90-140/60-90 mmHg] 146/80 mmHg *HI* (06/29/15 10:37 AM) Problem List Condition Effective Dates Status [...] days, # 20 tabs, 0 Refill(s), [facility] Start Date: 06/26/15 Stop Date: [...] # 4,000 mL, 0 Refill(s) , Pharmacy: [facility] Start Date: 07/01/14 Status: Orderedmultivitamin 1 [...] Refill(s) Start Date: 01/18/14 Status: Ordered Results Hematology Most recent to oldest [Reference Range]: 1 WBC [4.8-10.8 10*3/uL] 11.2 10*3/uL *HI* (06/29/15 11:23 AM) RBC [4.00-5.20] 4.63 (06/29/15 11:23 AM) Hgb [12.0-16.0 gm/dL] 13.4 gm/dL (06/29/15: AM) Hct [37.0-47.0 %] 40.3 % (06/29/15 11:23 AM) MCV [82.0-99.0 fL] 87.0 fL (06/29/15 11:23 AM) MCH [27.0-32.0 pg] 28.9 pg (06/29/15: AM) MCHC [32.0-36.0 gm/dL] 33.3 gm/dL (06/29/15 11:23 AM) RDW [11.5-14.5 %] 13.9 % (06/29/15 11: AM) Platelet [150-400 10*3/uL] 337 10*3/uL (06/29/15 11:23 AM) MPV [8.8-14.8 fL] 10.7 fL (06/29/15 11:23 AM) Immature Granulocytes [0.0-1.0 %] 0.5 % (06/29/15 11:23 AM) Neutrophils [51-75 %] 71 % (06/29/15 11:23 AM) Lymphocytes [20-46 %] 14 % *LOW* (06/29/15:23 AM) Monocytes [4-11 %] 9 % (06/29/15 11:23 AM) Eosinophils [0-4 %] 6 % *HI* (06/29/15 11:23 AM) Basophils [0-2 %] 0 % (06/29/15 11:23 AM) Neutro Absolute [1.90-7.00 10*3] 7.91 10*3 *HI* (06/29/15 11:23 AM) Lymph Absolute [0.80-3.30 10*3] 1.52 10*3 (06/29/15 11:23 AM) Mcdowell Absolute [0.30-1.00 10*3] 0.98 10*3 (06/29/15 11:23 AM) Eos Absolute [0.00-0.50 10*3] 0.71 10*3 *HI* (06/29/15 11:23 AM) Baso Absolute [0.00-0.20 10*3] 0.05 10*3 (06/29/15 11:23 AM) Chemistry Most recent to oldest [Reference Range]: 1 Sodium Lvl [135-144 mEq/L] 140 mEq/L (06/29/15 11:23 AM) Potassium Lvl [3.5-5.2 mEq/L] 4.4 mEq/L (06/29/15 11:23 AM) Chloride [99-111 mEq/L] 102 mEq/L (06/29/15 11:23 AM) CO2 [22-31 mEq/L] 27 mEq/L (06/29/15 11:23 AM) AGAP [3-20] 11 (06/29/15 11:23 AM) BUN [10-20 mg/dL] 12 mg/dL (06/29/15 11:23 AM) Glucose Lvl [70-99 mg/dL] 83 mg/dL (06/29/15 11:23 AM) Creatinine Lvl [0.57-1.11 mg/dL] 0.86 mg/dL (06/29/15 11:23 AM) eGFR [>60 mL/min] >60 mL/min 1 (06/29/15 11:23 AM) Calcium Lvl [8.9-10.5 mg/dL] 9.9 mg/dL (06/29/15 11:23 AM) Albumin Lvl [3.4-4.8 gm/dL] 3.9 gm/dL (06/29/15 11:23 AM) Total Protein [6.2-8.1 gm/dL] 6.8 gm/dL (06/29/15 11:23 AM) Globulin [1.8-4.0 gm/dL] 2.9 gm/dL (06/29/15 11:23 AM) ALT [0-55 U/L] 11 U/L (06/29/15 11:23 AM) AST [5-34 U/L] 19 U/L (06/29/15 11:23 AM) Alk Phos [40-150 U/L] 121 U/L (06/29/15 11:23 AM) Bili Total [0.2-1.2 mg/dL] 0.3 mg/dL (06/29/15 11:23 AM) Chol [0-199 mg/dL] 131 mg/dL (06/29/15 11:23 AM) Trig [0-149 mg/dL] 106 mg/dL (06/29/15 11:23 AM) HDL [40-84 mg/dL] 49 mg/dL (06/29/15 11:23 AM) LDL [0-130 mg/dL] 61 mg/dL (06/29/15 11:23 AM) VLDL Cholesterol [0-28 mg/dL] 21 mg/dL (06/29/15 11:23 AM) Cardiac Risk [0.0-5.0] 2.7 (06/29/15 11:23 AM) TSH with Reflex Free T4 [0.35-4.94] 1.30 (06/29/15 11:23 AM) 1Result Comment: Multiply eGFR results by [...]
--- OUTSIDE RECORDS SUMMARY | 2016-11-14 19:12 | External Medical Summary | Referral Summary ---
:1940 Author Organization [facility] Address [address] [place] [address] Care Team Providers Name Role Phone Kvng Andrew Primary Care Physician Encounter VC Date(s): 08/23/15 - 08/23/15 [facility] [address] [place] [address] - [place] Discharge Diagnosis: Breath, shortness Discharge Disposition: 01-Home or Self Care Attending Physician: Radha Walsh APRN Admitting Physician: Radha Walsh APRN Vital Signs No data available for this [...] mL, 0 Refill(s) , Pharmacy: [facility] Start Date: 07/01/14 Status: Orderedmultivitamin [...]
--- OUTSIDE RECORDS SUMMARY | 2016-11-14 19:12 | External Medical Summary | Referral Summary ---
:1940 Author Care Team Providers Name Role Phone Kamran Kvng Primary Care Physician Encounter [facility] [id number] Date(s): 07/21/14 - 07/21/14 [facility] [address] [place] [address] [facility] Discharge Diagnosis: Chronic sinusitis Discharge Diagnosis: Allergic rhinitis due to other allergen Discharge Diagnosis: Asthma without status asthmaticus Discharge Diagnosis: Allergic conjunctivitis Discharge Diagnosis: Contact dermatitis Discharge Diagnosis: Chronic cough Discharge Disposition: Home or Self Care Attending Physician: Jackie Luis Admitting Physician: Jackie Luis Referring Physician: Jackie Luis Vital Signs No data available for this section Problem List Condition Effective Dates Status Health Status Informant Allergic rhinitis due to other Active allergen(Confirmed) Allergic rhinitis due to other Active allergen(Confirmed) Allergies(Confirmed) Resolved Asthma(Confirmed) Resolved Asthma without status asthmaticus Active (disorder)(Confirmed) BRCA gene positive(Confirmed) Active Cancer of breast(Confirmed) Active Hay fever(Confirmed) Active Hyperlipidemia(Confirmed) Active Hypothyroidism(Confirmed) Active Hypothyroidism (disorder)(Confirmed) Active Leg swelling(Confirmed) Active Osteoporosis(Confirmed) Resolved Swelling of limb Active (finding)(Confirmed) Allergies, Adverse Reactions, Alerts Substance Reaction Severity Status aspirin uNspecfied Active divalproex sodium uNspecfied Active risperiDONE Active simvastatin Active Medications Astelin 137 mcg/inh nasal spray 2 sprays, Nasal, BID, # 1 Each, 11 Refill(s) Start Date: 07/21/14 Status: Orderedatorvastatin 10 mg oral tablet 1 tabs, Oral, Daily, # 90 tabs, 3 Refill(s) Start Date: 01/24/14 Status: Orderedcalcium gluconate 500 mg oral tablet 1 tabs, Oral, TID, # 100 tabs, 0 Refill(s) Start Date: 09/28/13 Status: Orderedfluticasone 50 mcg/inh nasal spray 2 sprays, Nasal, BID, # 3 bottles, 3 Refill(s) Start Date: 01/24/14 Status: OrderedMoviPrep oral powder for reconstitution 4,000 mL, Oral, Daily, as directed on package labeling, # 4,000 mL, 0 Refill(s) , Pharmacy: [facility] Special Instructions: as directed on package labeling Start Date: 07/01/14 Status: Orderedmultivitamin 1 tabs, [...] BID, # 60 g, 1 Refill(s), Pharmacy: [facility] Start Date: 05/17/14 Status: OrderedVentolin HFA 90 mcg/inh inhalation aerosol See Instructions, 2-4 puffs every 4-6 hrs prn., # 3 Each, 0 Refill(s) Special Instructions: 2-4 puffs every 4-6 hrs prn. Start Date: 01/18/14 Status: Ordered Results No data available for this section Immunizations Vaccine Date Refusal Reason tetanus/diphth/pertuss (Tdap) adult/adol 07/16/11 influenza virus vaccine, live 02/22/11 influenza virus vaccine, live 02/05/07 pneumococcal 23-polyvalent vaccine 07/16/11 pneumococcal 23-polyvalent vaccine 02/04/03 tetanus-diphth toxoids (Td) adult/adol 01/28/07 tetanus-diphth toxoids (Td) adult/adol 09/12/96 zoster vaccine live 07/16/11 Procedures Procedure Date Related Diagnosis Body Site Bilateral oophorectomy 2009 Oophorectomy 2009 Nasal polyp 2008 Sinus Surgery 2008 feet 2006 Tonsillectomy 1995 Thyroidectomy 1994 Hysterectomy 1974 Colectomy Social History Social History Type Response Smoking Status Never smoker Assessment and Plan Extracted from: Title: Office Visit Note Author: Jackie Luis Date: 07/21/14 Assessment/Plan Allergic conjunctivitis *Zaditor eye drops (over the counter) 1 drop affected eye twice a day if needed. Allergic rhinitis due to other allergen * Flonase (Fluticasone) nasal spray 1 to 2 sprays each nostril twice daily. * Add Astelin (azelastine) nasal spray 1 to 2 sprays each nostril twice a day. * May continue nasal saline irrigation once or twice daily, move nightly rinse to right before supper. Asthma without status asthmaticus * Continue Foradil or a placebo and Flovent 250 mcg 2 puffs twice a day. (Ask the study if the Flovent is 1 or 2 puffs twice daily.) * Continue Ventolin HFA (albuterol) 2 to 4 puffs every 4 hours if needed for cough, wheeze or shortness of air, and 20 minutes prior to exercise if needed. Use spacer. Chronic cough Chronic sinusitis Contact dermatitis Recheck in 6 months with a breathing test first. Orders: azelastine nasal, 2 sprays, Nasal, BID, # 1 Each, 11 Refill(s)
--- OUTSIDE RECORDS SUMMARY | 2016-11-14 19:12 | External Medical Summary | Referral Summary ---
:1940 Author Organization [facility] Address [address] [place] [address] Care Team Providers Name Role Phone Kvng Andrew Primary Care Physician Encounter [facility] Date(s): 01/20/15 - 01/20/15 [facility] [address] [place] [address]- [place] Discharge Diagnosis: Plantar fasciitis of right foot Discharge Disposition: 01-Home or Self Care Attending Physician: Surya Shah DPM Admitting Physician: uSrya Shah DPM Referring Physician: Kvng Andrew MD [...] # 4,000 mL, 0 Refill(s) , [facility] Start Date: 07/01/14 Status: Orderedmultivitamin [...] painful areas after working out. Only take [id number] or prescription medicines for pain, discomfort , [...] 12/17/2001 Document Revised: 06/15/2012 Document Reviewed: 02/15/2009 [facility] Patient Information 2015 [employer]. This information is not intended to replace advice given to you by your health care provider. Make sure you discuss any questions you have with your health care provider. No follow up information was provided. Extracted from: Title: Office Visit Note Author: Surya Shah Gracie Date: 01/20/15 Assessment/Plan Plantar fasciitis of right [...] # 30 tabs, 3 Refill(s), Pharmacy: [facility], 1 tabs Oral Daily
--- OUTSIDE RECORDS SUMMARY | 2016-11-14 19:12 | External Medical Summary | Referral Summary ---
:1940 Author Organization [facility] Address [address] [place] [address] Care Team Providers Name Role Phone Kvng Andrew Primary Care Physician Encounter VC Date(s): 08/23/15 - 08/23/15 [facility] [address] [place] [address] - [place] Discharge Diagnosis: Allergic conjunctivitis Discharge Diagnosis: Asthma, well controlled Discharge Diagnosis: History of nasal polyp Discharge Diagnosis: Allergic rhinitis due to pollen Discharge Disposition: 01-Home or Self Care Attending Physician: Radha Walsh APRN Admitting Physician: Radha Walsh APRN Vital Signs Most recent to oldest [Reference Range]: 1 Peripheral Pulse Rate [60-100 bpm] 78 bpm (08/23/15 10:12 AM) Blood Pressure [90-140/60-90 mmHg] 110/82 mmHg (08/23/15 10:12 AM) Problem List Condition Effective Dates Status [...] 4,000 mL, 0 Refill(s) , Pharmacy: [facility] Start Date: 07/01/14 [...] (Tdap) adult/adol 07/16/11 influenza virus vaccine, live 11/18/11 influenza virus vaccine, live 02/05/07 pneumococcal 23-polyvalent [...] Extracted from: Title: Ambulatory Patient Education Author: Radha Walsh APRN Date: 08/22 Allergy Allergic Rhinitis Allergic rhinitis is when the mucous membranes in the nose respond to allergens. Allergens are particles in the air that cause your body to have an allergic reaction. This causes you to release allergic antibodies. Through a chain of events, these eventually cause you to release histamine into the blood stream. Although meant to protect the body, it is this release of histamine that causes your discom fort, such as frequent sneezing, congestion, and an itchy, runny nose. CAUSES Seasonal allergic rhinitis (hay fever) is caused by pollen allergens that may come from grasses, trees, and weeds. Year-round allergic rhinitis (perennial allergic rhinitis) is caused by allergens such as house dust mites, pet dander, and mold spores. SYMPTOMS Nasal stuffiness (congestion). Itchy, runny nose with sneezing and tearing of the eyes. DIAGNOSIS Your health care provider can help you determine the allergen or allergens that trigger your symptoms. If you and your health care provider are unable to determine the allergen, skin or blood testing ma y be used. Your health care provider will diagnose your condition after taking your health history and performing a physical exam. Your health care provider may assess you for other related conditions, such as asthma, pink eye, or an ear infection. TREATMENT Allergic rhinitis does not have a cure, but it can be controlled by: Medicines that block allergy symptoms. These may include allergy shots, nasal sprays, and oral antihistamines. Avoiding the allergen. Hay fever may often be treated with antihistamines in pill or nasal spray forms. Antihistamines block the effects of histamine. There are over-the- counter medicines that may help with nasal congestion a nd swelling around the eyes. Check with your health care provider before taking or giving this medicine. If avoiding the allergen or the medicine prescribed do not work, there are many new medicines your health care provider can prescribe. Stronger medicine may be used if initial measures are ineffective. Desensitizing injections can be used if medicine and avoidance does not work. Desensitization is when a patient is given ongoing shots until the body becomes less sensitive to the allergen. Make sure yo u follow up with your health care provider if problems continue. HOME CARE INSTRUCTIONS It is not possible to completely avoid allergens, but you can reduce your symptoms by taking steps to limit your exposure to them. It helps to know exactly what you are allergic to so that you can avoid your specific triggers. SEEK MEDICAL CARE IF: You have a fever. You develop a cough that does not stop easily (persistent). You have shortness of breath. You start wheezing. Symptoms interfere with normal daily activities. This information is not intended to replace advice given to you by your health care provider. Make sure you discuss any questions you have with your health care provider. Document Released: 12/17/2001 Document Revised: 01/10/2015 Document Reviewed: 11/29/2013 [facility] Patient Information 2015 [facility], [facility]. [facility] Medicine Asthma Asthma is a recurring condition in which the airways tighten and narrow. Asthma can make it difficult to breathe. It can cause coughing, wheezing, and shortness of breath. Asthma episodes, also called a sthma attacks, range from minor to life-threatening. Asthma cannot be cured, but medicines and lifestyle changes can help control it. CAUSES Asthma is believed to be caused by inherited (genetic) and environmental factors, but its exact cause is unknown. Asthma may be triggered by allergens, lung infections, or irritants in the air. Asthma t riggers are different for each person. Common triggers include: Animal dander. Dust mites. Cockroaches. Pollen from trees or grass. Mold. Smoke. Air pollutants such as dust, household cigarette catcher, hair sprays, aerosol sprays, paint fumes, strong chemicals, or strong odors. Cold air, weather changes, and winds (which increase molds and pollens in the air). Strong emotional expressions such as crying or laughing hard. Stress. Certain medicines (such as aspirin) or types of drugs (such as beta- blockers). Sulfites in foods and drinks. Foods and drinks that may contain sulfites include dried fruit, potato chips, and sparkling grape juice. Infections or inflammatory conditions such as the flu, a cold, or an inflammation of the nasal membranes (rhinitis). Gastroesophageal reflux disease (GERD). Exercise or strenuous activity. SYMPTOMS Symptoms may occur immediately after asthma is triggered or many hours later. Symptoms include: Wheezing. Excessive nighttime or set up mechanic coughing. Frequent or severe coughing with a common cold. Chest tightness. Shortness of breath. DIAGNOSIS The diagnosis of asthma is made by a review of your medical history and a physical exam. Tests may also be performed. These may include: Lung function studies. These tests show how much air you breathe in and out. Allergy tests. Imaging tests such as X-rays. TREATMENT Asthma cannot be cured, but it can usually be controlled. Treatment involves identifying and avoiding your asthma triggers. It also involves medicines. There are 2 classes of medicine used for asthma treatment: Controller medicines. These prevent asthma symptoms from occurring. They are usually taken every day. Reliever or rescue medicines. These quickly relieve asthma symptoms. They are used as needed and provide short-term relief. Your health care provider will help you create an asthma action plan. An asthma action plan is a written plan for managing and treating your asthma attacks. It includes a list of your asthma triggers an d how they may be avoided. It also includes information on when medicines should be taken and when their dosage should be changed. An action plan may also involve the use of a device called a peak flow meter. A peak flow meter measures how well the lungs are working. It helps you monitor your condition. HOME CARE INSTRUCTIONS Take medicines only as directed by your health care provider. Speak with your health care provider if you have questions about how or when to take the medicines. Use a peak flow meter as directed by your health care provider. Record and keep track of readings. Understand and use the action plan to help minimize or stop an asthma attack without needing to seek medical care. Control your home environment in the following ways to help prevent asthma attacks: Do not smoke. Avoid being exposed to secondhand smoke. Change your heating and air conditioning filter regularly. Limit your use of fireplaces and wood stoves. Get rid of pests (such as roaches and mice) and their droppings. Throw away plants if you see mold on them. Clean your floors and dust regularly. Use unscented cleaning products. Try to have someone else vacuum for you regularly. Stay out of rooms while they are being vacuumed and for a short while afterward. If you vacuum, use a dust mask from a hardware store, a double- layered or microfilter vacuum shrimp cleaner bag, or a vacuum shrimp cleaner with a HEPA filter. Replace carpet with wood, tile, or vinyl randy. Carpet can trap dander and dust. Use allergy-proof pillows, mattress covers, and box spring covers. Wash bed sheets and blankets every week in hot water and dry them in a dryer. Use blankets that are made of polyester or cotton. Clean bathrooms and susie with bleach. If possible, have someone repaint the loza in these rooms with mold-resistant paint. Keep out of the rooms that are being cleaned and painted. Wash hands frequently. SEEK MEDICAL CARE IF: You have wheezing, shortness of breath, or a cough even if taking medicine to prevent attacks. The colored mucus you cough up (sputum) is thicker than usual. Your sputum changes from clear or white to yellow, green, wilson, or bloody. You have any problems that may be related to the medicines you are taking (such as a rash, itching, swelling, or trouble breathing). You are using a reliever medicine more than 23 times per week. Your peak flow is still at 5079% of your personal best after following your action plan for 1 hour. You have a fever. SEEK IMMEDIATE MEDICAL CARE IF: You seem to be getting worse and are unresponsive to treatment during an asthma attack. You are short of breath even at rest. You get short of breath when doing very little physical activity. You have difficulty eating, drinking, or talking due to asthma symptoms. You develop chest pain. You develop a fast heartbeat. You have a bluish color to your lips or fingernails. You are light-headed, dizzy, or faint. Your peak flow is less than 50% of your personal best. MAKE SURE YOU: Understand these instructions. Will watch your condition. Will get help right away if you are not doing well or get worse. This information is not intended to replace advice given to you by your health care provider. Make sure you discuss any questions you have with your health care provider. Document Released: 03/24/2006 Document Revised: 08/08/2014 Document Reviewed: 10/21/2013 [facility] Patient Information 2015 [employer] [facility]. Ophthalmology Allergic Conjunctivitis The conjunctiva is a thin membrane that covers the visible white part of the eyeball and the underside of the eyelids. This membrane protects and lubricates the eye. The membrane has small blood vessels running through it that can normally be seen. When the conjunctiva becomes inflamed, the condition is called conjunctivitis. In response to the inflammation, the conjunctival blood vessels become swoll en. The swelling results in redness in the normally white part of the eye. The blood vessels of this membrane also react when a person has allergies and is then called allergic conjunctivitis. This condition usually lasts for as long as the allergy persists. Allergic conjuncti vitis cannot be passed to another person (non-contagious). The likelihood of bacterial infection is great and the cause is not likely due to allergies if the inflamed eye has: A sticky discharge. Discharge or sticking together of the lids in the morning. Scaling or flaking of the eyelids where the eyelashes come out. Red swollen eyelids. CAUSES Viruses. Irritants such as foreign bodies. Chemicals. General allergic reactions. Inflammation or serious diseases in the inside or the outside of the eye or the orbit (the dante cavity in which the eye sits) can cause a "red eye. " SYMPTOMS Eye redness. Tearing. Itchy eyes. Burning feeling in the eyes. Clear drainage from the eye. Allergic reaction due to pollens or ragweed sensitivity. Seasonal allergic conjunctivitis is frequent in the spring when pollens are in the air and in the fall. DIAGNOSIS This condition, in its many forms, is usually diagnosed based on the history and an ophthalmological exam. It usually involves both eyes. If your eyes react at the same time every year, allergies may be the cause. While most "red eyes" are due to allergy or an infection, the role of an eye (ophthalmological) exam is important. The exam can rule out serious diseases of the eye or orbit. TREATMENT Non-antibiotic eye drops, ointments, or medications by mouth may be prescribed if the reinforced steel placing supervisor is sure the conjunctivitis is due to allergies alone. [id number] drops and ointments for allergic symptoms should be used only after other causes of conjunctivitis have been ruled out, or as your caregiver suggests. Medications by mouth are often prescribed if other allergy-related symptoms are present. If the reinforced steel placing supervisor is sure that the conjunctivitis is due to allergies alone, treatment is normally limited t o drops or ointments to reduce itching and burning. HOME CARE INSTRUCTIONS Wash hands before and after applying drops or ointments, or touching the inflamed eye(s) or eyelids. Do not let the eye dropper tip or ointment tube touch the eyelid when putting medicine in your eye. Stop using your soft contact lenses and throw them away. Use a new pair of lenses when recovery is complete. You should run through sterilizing cycles at least three times before use after comple te recovery if the old soft contact lenses are to be used. Hard contact lenses should be stopped. They need to be thoroughly sterilized before use after recovery. Itching and burning eyes due to allergies is often relieved by using a cool cloth applied to closed eye(s). SEEK MEDICAL CARE IF: Your problems do not go away after two or three days of treatment. Your lids are sticky (especially in the morning when you wake up) or stick together. Discharge develops. Antibiotics may be needed either as drops, ointment , or by mouth. You have extreme light sensitivity. An oral temperature above 102 F (38.9 C) develops. Pain in or around the eye or any other visual symptom develops. MAKE SURE YOU: Understand these instructions. Will watch your condition. Will get help right away if you are not doing well or get worse. This information is not intended to replace advice given to you by your health care provider. Make sure you discuss any questions you have with your health care provider. Document Released: 06/14/2003 Document Revised: 06/15/2012 Document Reviewed: 05/09/2008 [employer] Patient Information 2015 [employer]. No follow up information was provided. Extracted from: Title: Office Visit Note Author: Radha Walsh APRN Date: 08/23/15 Assessment/Plan 1.Allergic rhinitis due to pollen Continue Flonase two sprays in each nostril two times a day (Script given to patient to take to her pharmacy) Resume cetirizine if allergy symptoms recur Continue Azelastine nasal spray as needed for runny nose/post nasal drip Continue with sinus rinses as needed Ordered: Office Visit Level 3 Est 71363 Return to Clinic 2.History of nasal polyp Continue Flonase Advised to follow up with Dr. Freedman for anosmia Ordered: Office Visit Level 3 Est [id number] Return to Clinic 3.Asthma, well controlled Continue Advair 115/21mcg two puffs two times a day with a spacer, rinsing mouth after each use Continue Flovent 44mcg 1 puff two times a day with a spacer, rinsing mouth after each use Continue albuterol 2-4 puffs every 4 hours as needed for cough, shortness of breath or wheezing Ordered: Office Visit Level 3 Est [id number] Return to Clinic 4.Allergic conjunctivitis Currently controlled Will follow up in 4 months (Can't come in 3 months due to having a lot of birthday parties to go to) with spirometry or sooner if asthma/allergies are not well controlled. Ordered: Office Visit Level 3 Est [id number] Return to Clinic Referrals to Other Providers Referred by: Radha Walsh APRN
--- OUTSIDE RECORDS SUMMARY | 2016-11-14 19:12 | External Medical Summary | Referral Summary ---
:1940 Author Organization [facility] Address [address] [place] [address] Care Team Providers Name Role Phone Kvng Andrew Primary Care Physician Encounter VC Date(s): 07/24/15 - 07/24/15 [facility] [address] [place] [address] - [place] Discharge Diagnosis: Allergic rhinitis Discharge Diagnosis: Asthma, not well controlled Discharge Diagnosis: History of nasal polyp Discharge Disposition: 01-Home or Self Care Attending Physician: Radha Walsh APRN Admitting Physician: Radha Walsh APRN Vital Signs Most recent to oldest [Reference Range]: 1 Peripheral Pulse Rate [60-100 bpm] 84 bpm (07/24/15 10:37 AM) Blood Pressure [90-140/60-90 mmHg] 122/80 mmHg (07/24/15 10:37 AM) Problem List Condition Effective Dates [...] 4,000 mL, 0 Refill(s) , Pharmacy: [facility] Start Date: 07/01/14 [...] Patient Education Author: Radha Walsh APRN Date: 07/23 Allergy Allergic Rhinitis Allergic rhinitis is when [...] 12/17/2001 Document Revised: 01/10/2015 Document Reviewed: 11/29/2013 [facility] Patient Information 2015 [facility], [facility]. [facility] Medicine Asthma Asthma is a recurring [...] Smoke. Air pollutants such as dust, household guest service supervisor, hair sprays, aerosol sprays, paint fumes, strong [...] later. Symptoms include: Wheezing. Excessive nighttime or garment looper coughing. Frequent or severe coughing with a [...] store, a double- layered or microfilter vacuum machinery cleaner bag, or a vacuum machinery cleaner with a HEPA filter. Replace carpet [...] 03/24/2006 Document Revised: 08/08/2014 Document Reviewed: 10/21/2013 [employer] Patient Information 2015 [employer] [facility]. No follow up information was provided. Extracted from: Title: Office Visit Note Author: Radha Walsh APRN Date: 07/24/15 Assessment/Plan 1.Allergic rhinitis Start cetirizine 10mg every day Stop Flonase Start Dymista 1 spray in each nostril two times a day Start Nasal lavage with saline. Do this every day, especially after gardening Avoid known allergens when possible Continue wearing a mask while gardening Ordered: Office Visit Level 4 Est [id number] Return to Clinic 2.History of nasal polyp Ordered: Office Visit Level 4 Est [id number] Return to Clinic 3.Asthma, not well controlled Continue Advair 115/21mcg two puffs two times a day, rinsing mouth afterwards Start Qvar 80mcg 1 puff two times a day, rinsing mouth afterwards Start using albuterol with cough, 2-4 puffs every 4 hours as needed Use a spacer with all inhalers Spacer given Teaching regarding medication compliance, optimization of lung function, decreasing risk of exacerbations and difference between rescue and controller inhaler was reviewed during todays office visit.Advised to get influenza vaccine every year. Our goal is to use albuterol less than two times a week (not including use before exercise) and symptoms at night less than two nights a month for children age 5 or less, and less than one night a month for people older than 5. Will follow up in 1 month with spirometry or sooner if asthma/allergy symptoms are not well controlled Ordered: Office Visit Level 4 Est [id number] Return to Clinic
--- OUTSIDE RECORDS SUMMARY | 2016-11-14 19:13 | External Medical Summary | Continuity of Care Document ---
:1940 Author Organization [facility] Allergies Active Description Code Type Severity Reaction Onset Reported/ Identified Relationship Clinical to Patient Status Yes No Known No Drug Unknown N/A 10/10/2009 Intolerances Known Aller Intol gy eranc es Yes clemastine clema Drug Mild HALLUCINA 10/13/2009 fumarate jarrod Aller TION fumar gy ate Yes diphenhydram diphe Drug Mild HALLUCINA 10/13/2009 ine HCl nhydr Aller TION amine gy HCl Yes divalproex dival Drug Mild N/A 10/13/2009 sodium proex Aller sodiu gy m Yes escitalopram escit Drug Mild N/A 10/13/2009 oxalate alopr Aller am gy oxala te Yes menthol menth Drug Mild HALLUCINA 10/13/2009 ol Aller TION gy Yes phenylpropan pheny Drug Mild HALLUCINA 10/13/2009 olamine HCl lprop Aller TION anola gy mine HCl Yes pseudoephedr pseud Drug Mild HALLUCINA 10/13/2009 ine HCl oephe Aller TION drine gy HCl Yes RESPIRADOL RESPI Drug Mild N/A 10/13/2009 RADOL Aller gy Yes simvastatin simva Drug Mild N/A 10/13/2009 stati Aller n gy Yes STERIODS STERI Drug Mild HULLICINA 10/13/2009 ODS Aller TION gy Yes tripelennami tripe Drug Mild HALLUCINA 10/13/2009 ne HCl colleen Aller TION mine gy HCl Yes triprolidine tripr Drug Mild HALLUCINA 10/13/2009 HCl olidi Aller TION ne gy HCl Yes prednisone predn Drug Unknown STEROIDS= 10/13/2009 isone Aller HALLUCINA gy TIONS Yes risperidone rispe Drug Unknown N/A 10/13/2009 ridon Aller e gy Yes divalproex dival Drug Mild UN 07/15/2016 sodium proex Aller sodiu gy m Yes escitalopram escit Drug Mild UN 07/15/2016 oxalate alopr Aller am gy oxala te Yes simvastatin simva Drug Mild UN 07/15/2016 stati Aller n gy Yes risperidone rispe Drug Unknown UNKNOWN 07/15/2016 ridon Aller e gy Medications Problems Date Dx Attending Type Code Diagnosis Diagnosed By Coded 07/14/2016 Kd Silverman MD E03.9 HYPOTHYROIDISM, UNSPECIFIED 07/14/2016 Kd Silverman MD E78.5 HYPERLIPIDEMIA, UNSPECIFIED 07/14/2016 Kd Silverman MD J45.909 UNSPECIFIED ASTHMA, UNCOMPLICATED 07/14/2016 Kd Silverman MD J95.821 ACUTE POSTPROCEDURAL RESPIRATORY FAILURE 07/14/2016 Kd Silverman MD J95.89 OTH POSTPROC COMPLICATIONS AND DISORDERS OF RESP S 07/14/2016 Kd Silverman MD J98.11 ATELECTASIS 07/14/2016 Kd Silverman MD 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 N 09/22/2016 Reba JUNIOR, F E03.9 HYPOTHYROIDISM, Cluadia N UNSPECIFIED 09/22/2016 Reba JUNIOR, F E78.5 HYPERLIPIDEMIA, Claudia N UNSPECIFIED 09/22/2016 Reba JUNIOR, F E87.6 HYPOKALEMIA Claudia N 09/22/2016 Reba JUNIOR, F F02.80 DEMENTIA IN OTH Claudia N DISEASES CLASSD ELSWHR W/O BEHAVRL 09/22/2016 Reba JUNIOR, F F31.9 BIPOLAR DISORDER, Claudia N UNSPECIFIED 09/22/2016 Reba JUNIOR, F 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, Claudia N UNSPECIFIED 09/22/2016 Reba JUNIOR, F G30.1 ALZHEIMER'S DISEASE Claudia N WITH LATE ONSET 09/22/2016 Reba JUNIOR, F I10 ESSENTIAL (PRIMARY) Claudia N HYPERTENSION 09/22/2016 Reba JUNIOR, F J45.909 UNSPECIFIED ASTHMA, Claudia N UNCOMPLICATED 09/22/2016 Reba JUNIOR, F K52.81 EOSINOPHILIC Claudia N GASTRITIS OR GASTROENTERITIS 09/22/2016 Reba JUNIOR, F 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 09/22/2016 Reba JUNIOR, F N39.0 URINARY TRACT Claudia N INFECTION, SITE NOT SPECIFIED 09/22/2016 Reba JUNIOR, A R10.9 UNSPECIFIED ABDOMINAL Claudia N PAIN 09/22/2016 Reba JUNIOR, F R63.4 ABNORMAL WEIGHT LOSS Claudia N 09/22/2016 Reba JUNIOR, F Z68.26 BODY MASS INDEX (BMI) Claudia N 26.0-26.9, ADULT 09/22/2016 Reba JUNIOR, F Z85.3 PERSONAL HISTORY OF Claudia N MALIGNANT NEOPLASM OF BREAST 09/22/2016 Reba JUNIOR, F 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 Procedures Code Description Performed By Performed On Kd Silverman MD 07/14/2016 [id number] REPOSITION LEFT HUMERAL HEAD WITH INT FIX, OPEN AP Kd Silverman MD R 07/14/2016 [id number] REPOSITION LEFT HUMERAL SHAFT WITH INT FIX, OPEN A Stefani JUNIOR, Nettie N 09/22/2016 [id number] EXCISION OF STOMACH, ENDO, DIAGN [facility], [facility] 09/22/2016 [id number] EXCISION OF DUODENUM, ENDO, DIAGN Results Test Result Range CBC W/DIFF - 07/14/16 12:40 BASOPHIL # 0.1 k/cumm 0.0-0.2 BASOPHIL % 1 % 0-1 EOSINOPHIL # 2.2 k/cumm 0.1-0.5 EOSINOPHIL % 17 % 2-4 GRANULOCYTE # 9.2 k/cumm 2.0-9.0 GRANULOCYTE % 70 % 50-75 LYMPHOCYTE # 1.0 k/cumm 1.0-4.0 LYMPHOCYTE % 8 % 20-30 MEAN CELL HGB 27.9 pg 27.0-33.0 MEAN CELL HGB CONCENTRATION 31.6 g/dL 32.0-37.0 MEAN CELL VOLUME 88.4 fl 80.0-100.0 MONOCYTE # 0.6 k/cumm 0.1-1.0 MONOCYTE % 5 % 4-6 RED BLOOD CELL 4.48 m/cumm 4.00-6.00 RED CELL DISTRIBUTION WIDTH 14.7 % 11.0-15.6 WHITE BLOOD CELL 13.1 k/cumm 5.0-10.0 HEMOGLOBIN 12.5 gm/dL 12.0-16.0 HEMATOCRIT 39.6 % 37.0-47.0 PLATELET COUNT 239 k/cumm 150-400 [facility] - 07/14/16 12:40 POTASSIUM 3.9 mmol/L 3.5-5.3 EST GFR (MDRD) > 60 mL/min > 59 ANION GAP 8 mmol/L 5-15 EST CrCl (CG) > 60 mL/min > 59 GLUCOSE 90 mg/dL 70-99 CALCIUM 8.9 mg/dL 8.5-10.1 BLOOD UREA NITROGEN 9 mg/dL 7-20 CREATININE 0.8 mg/dL 0.6-1.0 SODIUM 140 mmol/L 135-148 CHLORIDE 104 mmol/L 98-110 AST/SGOT 25 Units/L 10-37 ALT/SGPT 21 Units/L < 66 CARBON DIOXIDE 28 mmol/L 21-32 TOTAL PROTEIN 7.2 gm/dL 6.4-8.2 ALBUMIN 3.1 gm/dL 3.4-5.0 BILI TOTAL 0.3 mg/dL 0.0-1.0 ALKALINE PHOSPHATASE TOTAL 155 IU/L 45-117 CBC - 07/16/16 03:42 MEAN CELL HGB 28.5 pg 27.0-33.0 MEAN CELL HGB CONCENTRATION 31.5 g/dL 32.0-37.0 MEAN CELL VOLUME 90.3 fl 80.0-100.0 RED BLOOD CELL 3.90 m/cumm 4.00-6.00 RED CELL DISTRIBUTION WIDTH 15.1 % 11.0-15.6 WHITE BLOOD CELL 14.8 k/cumm 5.0-10.0 HEMOGLOBIN 11.1 gm/dL 12.0-16.0 HEMATOCRIT 35.2 % 37.0-47.0 PLATELET COUNT 226 k/cumm 150-400 [facility] 03:42 POTASSIUM 4.2 mmol/L 3.5-5.3 EST GFR (MDRD) 54 mL/min > 59 ANION GAP 5 mmol/L 5-15 EST CrCl (CG) 49 mL/min > 59 GLUCOSE 97 mg/dL 70-99 CALCIUM 8.3 mg/dL 8.5-10.1 BLOOD UREA NITROGEN 18 mg/dL 7-20 CREATININE 1.0 mg/dL 0.6-1.0 SODIUM 140 mmol/L 135-148 CHLORIDE 106 mmol/L 98-110 AST/SGOT 18 Units/L 10-37 ALT/SGPT 14 Units/L < 66 CARBON DIOXIDE 29 mmol/L 21-32 TOTAL PROTEIN 6.0 gm/dL 6.4-8.2 ALBUMIN 2.6 gm/dL 3.4-5.0 BILI TOTAL 0.3 mg/dL 0.0-1.0 ALKALINE PHOSPHATASE TOTAL 131 IU/L 45-117 BLOOD CULTURE - 07/18/16 12:02 Microbiology LACTIC ACID - 07/18/16 12:02 LACTIC ACID 1.3 mmol/L 0.5-2.0 CBC - 07/18/16 12:02 MEAN CELL HGB 28.4 pg 27.0-33.0 MEAN CELL HGB CONCENTRATION 31.7 g/dL 32.0-37.0 MEAN CELL VOLUME 89.8 fl 80.0-100.0 RED BLOOD CELL 4.43 m/cumm 4.00-6.00 RED CELL DISTRIBUTION WIDTH 14.9 % 11.0-15.6 WHITE BLOOD CELL 13.8 k/cumm 5.0-10.0 HEMOGLOBIN 12.6 gm/dL 12.0-16.0 HEMATOCRIT 39.8 % 37.0-47.0 PLATELET COUNT 245 k/cumm 150-400 METABOLIC PANEL, BASIC - 07/18/16 12:02 POTASSIUM 4.0 mmol/L 3.5-5.3 EST GFR (MDRD) > 60 mL/min > 59 ANION GAP 6 mmol/L 5-15 EST CrCl (CG) > 60 mL/min > 59 GLUCOSE 95 mg/dL 70-99 CALCIUM 8.5 mg/dL 8.5-10.1 BLOOD UREA NITROGEN 10 mg/dL 7-20 CREATININE 0.7 mg/dL 0.6-1.0 SODIUM 140 mmol/L 135-148 CHLORIDE 103 mmol/L 98-110 CARBON DIOXIDE 31 mmol/L 21-32 BLOOD CULTURE - 07/18/16 13:15 Microbiology GLUCOSE (POC) - 07/18/16 14:43 GLUCOSE (POC) 112 mg/dL 70-99 CBC - 07/18/16 15:14 MEAN CELL HGB 28.7 pg 27.0-33.0 MEAN CELL HGB CONCENTRATION 32.1 g/dL 32.0-37.0 MEAN CELL VOLUME 89.4 fl 80.0-100.0 RED BLOOD CELL 4.07 m/cumm 4.00-6.00 RED CELL DISTRIBUTION WIDTH 14.7 % 11.0-15.6 WHITE BLOOD CELL 17.6 k/cumm 5.0-10.0 HEMOGLOBIN 11.7 gm/dL 12.0-16.0 HEMATOCRIT 36.4 % 37.0-47.0 PLATELET COUNT 229 k/cumm 150-400 METABOLIC PANEL, BASIC - 07/18/16 15:14 POTASSIUM 4.0 mmol/L 3.5-5.3 EST GFR (MDRD) > 60 mL/min > 59 ANION GAP 4 mmol/L 5-15 EST CrCl (CG) > 60 mL/min > 59 GLUCOSE 119 mg/dL 70-99 CALCIUM 8.4 mg/dL 8.5-10.1 BLOOD UREA NITROGEN 13 mg/dL 7-20 CREATININE 0.7 mg/dL 0.6-1.0 SODIUM 138 mmol/L 135-148 CHLORIDE 103 mmol/L 98-110 CARBON DIOXIDE 31 mmol/L 21-32 TROPONIN I - 07/18/16 15:14 TROPONIN I 0.02 ng/mL < 0.07 CREATININE - 07/20/16 09:06 EST GFR (MDRD) > 60 mL/min > 59 CREATININE 0.6 mg/dL 0.6-1.0 URINALYSIS, ROUTINE - 09/22/16 14:57 UA LEUKOCYTE ESTERASE DIPSTICK 2+ NEGATIVE UA NITRITE DIPSTICK NEGATIVE NEGATIVE UA PROTEIN DIPSTICK TRACE NEGATIVE UA GLUCOSE DIPSTICK NEGATIVE NEGATIVE UA KETONE DIPSTICK TRACE NEGATIVE UA UROBILINOGEN DIPSTICK NORMAL NORMAL UA BILIRUBIN DIPSTICK NEGATIVE NEGATIVE UA BLOOD DIPSTICK 1+ NEGATIVE UA SPECIFIC GRAVITY 1.011 1.015-1.025 UR PH 6.5 5.0-7.0 UA MICROSCOPIC - 09/22/16 14:57 UA BACTERIA 2+ NEGATIVE UA EPITHELIAL CELLS 3+ epi/hpf 0 - 1+ UA HYALINE CAST 2-5 cast/lpf 0 - 1 UA RBC 10-20 rbc/hpf 0 - 3 UA VOLUME FOR EXAM 6.0 mL (12mL STD) UA WBC 20-50 wbc/hpf 0 - 5 URINE CULTURE - 09/22/16 14:57 Microbiology CBC W/DIFF - 09/22/16 15:24 EOSINOPHIL # 7.8 k/cumm 0.1-0.5 EOSINOPHIL % 48 % 2-4 GRANULOCYTE # 6.0 k/cumm 2.0-9.0 GRANULOCYTE % 37 % 50-75 LYMPHOCYTE # 1.3 k/cumm 1.0-4.0 LYMPHOCYTE % 8 % 20-30 MEAN CELL HGB 28.4 pg 27.0-33.0 MEAN CELL HGB CONCENTRATION 32.6 g/dL 32.0-37.0 MEAN CELL VOLUME 87.2 fl 80.0-100.0 MONOCYTE # 0.9 k/cumm 0.1-1.0 MONOCYTE % 6 % 4-6 RED BLOOD CELL 4.47 m/cumm 4.00-6.00 RED CELL DISTRIBUTION WIDTH 15.2 % 11.0-15.6 WHITE BLOOD CELL 16.2 k/cumm 5.0-10.0 HEMOGLOBIN 12.7 gm/dL 12.0-16.0 HEMATOCRIT 39.0 % 37.0-47.0 PLATELET COUNT 336 k/cumm 150-400 METABOLIC PANEL, COMPREHN - 09/22/16 15:24 POTASSIUM 2.7 mmol/L 3.5-5.3 EST GFR (MDRD) 44 mL/min > 59 ANION GAP 7 mmol/L 5-15 EST CrCl (CG) 40 mL/min > 59 GLUCOSE 80 mg/dL 70-99 CALCIUM 9.4 mg/dL 8.5-10.1 BLOOD UREA NITROGEN 12 mg/dL 7-20 CREATININE 1.2 mg/dL 0.6-1.0 SODIUM 135 mmol/L 135-148 CHLORIDE 97 mmol/L 98-110 AST/SGOT 26 Units/L 10-37 ALT/SGPT 20 Units/L < 66 CARBON DIOXIDE 31 mmol/L 21-32 TOTAL PROTEIN 7.8 gm/dL 6.4-8.2 ALBUMIN 3.2 gm/dL 3.4-5.0 BILI TOTAL 0.5 mg/dL 0.0-1.0 ALKALINE PHOSPHATASE TOTAL 175 IU/L 45-117 AMYLASE - 09/22/16 15:24 AMYLASE 40 Units/L 25-115 TROPONIN I - 09/22/16 15:24 TROPONIN I 0.02 ng/mL < 0.07 BLOOD CULTURE - 09/22/16 19:28 Microbiology LACTIC ACID - 09/22/16 19:37 LACTIC ACID 1.5 mmol/L 0.5-2.0 THYROID STIM HORMONE (TSH) - 09/22/16 19:38 THYROID STIM HORMONE (TSH) 1.70 uIU/mL 0.34-4.82 C REACTIVE PROTEIN - 09/22/16 19:38 C REACTIVE PROTEIN 14.2 mg/L < 8.0 SED RATE - 09/22/16 19:38 SED RATE 23 mm/hr 0-15 PATHOLOGIST SLIDE REVIEW - 09/22/16 19:38 PATHOLOGIST SLIDE REVIEW BLOOD CULTURE - 09/22/16 19:38 Microbiology LACTIC ACID - 09/22/16 22:48 LACTIC ACID 1.1 mmol/L 0.5-2.0 CBC W/DIFF - 09/23/16 01:49 EOSINOPHIL # 7.8 k/cumm 0.1-0.5 EOSINOPHIL % 52 % 2-4 GRANULOCYTE # 4.5 k/cumm 2.0-9.0 GRANULOCYTE % 30 % 50-75 LYMPHOCYTE # 1.8 k/cumm 1.0-4.0 LYMPHOCYTE % 12 % 20-30 MEAN CELL HGB 28.6 pg 27.0-33.0 MEAN CELL HGB CONCENTRATION 33.9 g/dL 32.0-37.0 MEAN CELL VOLUME 84.4 fl 80.0-100.0 MONOCYTE # 1.0 k/cumm 0.1-1.0 MONOCYTE % 6 % 4-6 RED BLOOD CELL 4.16 m/cumm 4.00-6.00 RED CELL DISTRIBUTION WIDTH 14.9 % 11.0-15.6 WHITE BLOOD CELL 15.2 k/cumm 5.0-10.0 HEMOGLOBIN 11.9 gm/dL 12.0-16.0 HEMATOCRIT 35.1 % 37.0-47.0 PLATELET COUNT 260 k/cumm 150-400 LACTIC ACID - 09/23/16 01:49 LACTIC ACID 1.5 mmol/L 0.5-2.0 METABOLIC PANEL, COMPREHN - 09/23/16 01:49 POTASSIUM 3.0 mmol/L 3.5-5.3 EST GFR (MDRD) 48 mL/min > 59 ANION GAP 6 mmol/L 5-15 EST CrCl (CG) 44 mL/min > 59 GLUCOSE 91 mg/dL 70-99 CALCIUM 8.6 mg/dL 8.5-10.1 BLOOD UREA NITROGEN 11 mg/dL 7-20 CREATININE 1.1 mg/dL 0.6-1.0 SODIUM 134 mmol/L 135-148 CHLORIDE 99 mmol/L 98-110 AST/SGOT 24 Units/L 10-37 ALT/SGPT 16 Units/L < 66 CARBON DIOXIDE 29 mmol/L 21-32 TOTAL PROTEIN 6.7 gm/dL 6.4-8.2 ALBUMIN 2.6 gm/dL 3.4-5.0 BILI TOTAL 0.3 mg/dL 0.0-1.0 ALKALINE PHOSPHATASE TOTAL 152 IU/L 45-117 STOOL LEUKOCYTES - 09/23/16 16:00 Microbiology OVA AND PARASITES - 09/23/16 16:00 Microbiology GLIADIN ANTIBODIES IGG - 09/23/16 16:18 GLIADIN ANTIBODIES IGG 2 units 0-19 GLIADIN ANTIBODIES IGA - 09/23/16 16:18 GLIADIN ANTIBODIES IGA 4 units 0-19 TRANSGLUTAMINASE AB IGA - 09/23/16 16:18 TRANSGLUTAMINASE AB IGA <2 U/mL 0-3 TRANSGLUTAMINASE AB IGG - 09/23/16 16:18 TRANSGLUTAMINASE AB IGG 11 U/mL 0-5 CBC W/DIFF - 09/24/16 05:06 EOSINOPHIL # 7.4 k/cumm 0.1-0.5 EOSINOPHIL % 49 % 2-4 GRANULOCYTE # 5.2 k/cumm 2.0-9.0 GRANULOCYTE % 35 % 50-75 LYMPHOCYTE # 1.6 k/cumm 1.0-4.0 LYMPHOCYTE % 11 % 20-30 MEAN CELL HGB 28.0 pg 27.0-33.0 MEAN CELL HGB CONCENTRATION 32.2 g/dL 32.0-37.0 MEAN CELL VOLUME 86.9 fl 80.0-100.0 MONOCYTE # 0.7 k/cumm 0.1-1.0 MONOCYTE % 5 % 4-6 RED BLOOD CELL 4.43 m/cumm 4.00-6.00 RED CELL DISTRIBUTION WIDTH 15.3 % 11.0-15.6 WHITE BLOOD CELL 15.0 k/cumm 5.0-10.0 HEMOGLOBIN 12.4 gm/dL 12.0-16.0 HEMATOCRIT 38.5 % 37.0-47.0 PLATELET COUNT 271 k/cumm 150-400 METABOLIC PANEL, COMPREHN - 09/24/16 05:06 POTASSIUM 3.2 mmol/L 3.5-5.3 EST GFR (MDRD) > 60 mL/min > 59 ANION GAP 9 mmol/L 5-15 EST CrCl (CG) 53 mL/min > 59 GLUCOSE 76 mg/dL 70-99 CALCIUM 8.3 mg/dL 8.5-10.1 BLOOD UREA NITROGEN 7 mg/dL 7-20 CREATININE 0.9 mg/dL 0.6-1.0 SODIUM 140 mmol/L 135-148 CHLORIDE 104 mmol/L 98-110 AST/SGOT 22 Units/L 10-37 ALT/SGPT 19 Units/L < 66 CARBON DIOXIDE 27 mmol/L 21-32 TOTAL PROTEIN 6.7 gm/dL 6.4-8.2 ALBUMIN 2.5 gm/dL 3.4-5.0 BILI TOTAL 0.4 mg/dL 0.0-1.0 ALKALINE PHOSPHATASE TOTAL 157 IU/L 45-117 HEPATIC FUNCTION PANEL - 09/24/16 05:06 BILI UNCONJUGATED 0.3 mg/dL 0.0-0.7 BILI CONJUGATED < 0.1 mg/dL 0.0-0.3 CBC W/MANUAL DIFF - 09/25/16 05:22 MEAN CELL HGB 28.1 pg 27.0-33.0 MEAN CELL HGB CONCENTRATION 31.9 g/dL 32.0-37.0 MEAN CELL VOLUME 88.1 fl 80.0-100.0 RED BLOOD CELL 4.02 m/cumm 4.00-6.00 RED CELL DISTRIBUTION WIDTH 15.4 % 11.0-15.6 WHITE BLOOD CELL 13.3 k/cumm 5.0-10.0 HEMOGLOBIN 11.3 gm/dL 12.0-16.0 HEMATOCRIT 35.4 % 37.0-47.0 PLATELET COUNT 272 k/cumm 150-400 MANUAL DIFF(O) - 09/25/16 05:22 EOSINOPHIL # 5.6 k/cumm 0.1-0.5 EOSINOPHIL % 42 % 2-4 GRANULOCYTE # 6.5 k/cumm 2.0-9.0 LYMPHOCYTE # 0.9 k/cumm 1.0-4.0 LYMPHOCYTE % 7 % 20-30 DIFFERENTIAL MANUAL MONOCYTE # 0.3 k/cumm 0.1-1.0 MONOCYTE % 2 % 4-6 RBC MORPH NOTED SEGMENTED NEUTROPHIL % 49 % 50-70 RENAL FUNCTION PANEL - 09/25/16 05:22 POTASSIUM 3.3 mmol/L 3.5-5.3 EST GFR (MDRD) > 60 mL/min > 59 ANION GAP 9 mmol/L 5-15 EST CrCl (CG) > 60 mL/min > 59 GLUCOSE 82 mg/dL 70-99 CALCIUM 7.7 mg/dL 8.5-10.1 BLOOD UREA NITROGEN 5 mg/dL 7-20 CREATININE 0.7 mg/dL 0.6-1.0 SODIUM 140 mmol/L 135-148 CHLORIDE 105 mmol/L 98-110 CARBON DIOXIDE 26 mmol/L 21-32 ALBUMIN 2.1 gm/dL 3.4-5.0 PHOSPHORUS 2.6 mg/dL 2.5-4.9 LIPID PANEL - 09/25/16 05:22 CHOLESTEROL/HDL RATIO 2.3 < 5.0 LDL CHOLESTEROL 51 mg/dL < 100 VLDL CHOLESTEROL 11 mg/dL < 30 TRIGLYCERIDES 53 mg/dL < 150 CHOLESTEROL 108 mg/dL < 200 HDL CHOLESTEROL 46 mg/dL > 39 CBC W/DIFF - 09/26/16 06:11 EOSINOPHIL # 5.8 k/cumm 0.1-0.5 EOSINOPHIL % 50 % 2-4 GRANULOCYTE # 3.7 k/cumm 2.0-9.0 GRANULOCYTE % 32 % 50-75 LYMPHOCYTE # 1.4 k/cumm 1.0-4.0 LYMPHOCYTE % 12 % 20-30 MEAN CELL HGB 28.2 pg 27.0-33.0 MEAN CELL HGB CONCENTRATION 32.2 g/dL 32.0-37.0 MEAN CELL VOLUME 87.4 fl 80.0-100.0 MONOCYTE # 0.8 k/cumm 0.1-1.0 MONOCYTE % 7 % 4-6 RED BLOOD CELL 3.80 m/cumm 4.00-6.00 RED CELL DISTRIBUTION WIDTH 15.4 % 11.0-15.6 WHITE BLOOD CELL 11.7 k/cumm 5.0-10.0 HEMOGLOBIN 10.7 gm/dL 12.0-16.0 HEMATOCRIT 33.2 % 37.0-47.0 PLATELET COUNT 245 k/cumm 150-400 RENAL FUNCTION PANEL - 09/26/16 06:11 POTASSIUM 3.1 mmol/L 3.5-5.3 EST GFR (MDRD) > 60 mL/min > 59 ANION GAP 6 mmol/L 5-15 EST CrCl (CG) > 60 mL/min > 59 GLUCOSE 84 mg/dL 70-99 CALCIUM 7.7 mg/dL 8.5-10.1 BLOOD UREA NITROGEN 4 mg/dL 7-20 CREATININE 0.7 mg/dL 0.6-1.0 SODIUM 142 mmol/L 135-148 CHLORIDE 106 mmol/L 98-110 CARBON DIOXIDE 30 mmol/L 21-32 ALBUMIN 2.1 gm/dL 3.4-5.0 PHOSPHORUS 2.5 mg/dL 2.5-4.9 MAGNESIUM - 09/26/16 06:11 MAGNESIUM 1.5 mg/dL 1.8-2.4 CBC W/DIFF - 09/27/16 04:55 EOSINOPHIL # 7.1 k/cumm 0.1-0.5 EOSINOPHIL % 53 % 2-4 GRANULOCYTE # 4.0 k/cumm 2.0-9.0 GRANULOCYTE % 30 % 50-75 LYMPHOCYTE # 1.5 k/cumm 1.0-4.0 LYMPHOCYTE % 11 % 20-30 MEAN CELL HGB 27.9 pg 27.0-33.0 MEAN CELL HGB CONCENTRATION 31.9 g/dL 32.0-37.0 MEAN CELL VOLUME 87.6 fl 80.0-100.0 MONOCYTE # 0.7 k/cumm 0.1-1.0 MONOCYTE % 5 % 4-6 RED BLOOD CELL 4.26 m/cumm 4.00-6.00 RED CELL DISTRIBUTION WIDTH 15.7 % 11.0-15.6 WHITE BLOOD CELL 13.4 k/cumm 5.0-10.0 HEMOGLOBIN 11.9 gm/dL 12.0-16.0 HEMATOCRIT 37.3 % 37.0-47.0 PLATELET COUNT 266 k/cumm 150-400 RENAL FUNCTION PANEL - 09/27/16 04:55 POTASSIUM 3.6 mmol/L 3.5-5.3 EST GFR (MDRD) > 60 mL/min > 59 ANION GAP 7 mmol/L 5-15 EST CrCl (CG) > 60 mL/min > 59 GLUCOSE 87 mg/dL 70-99 CALCIUM 8.0 mg/dL 8.5-10.1 BLOOD UREA NITROGEN 3 mg/dL 7-20 CREATININE 0.7 mg/dL 0.6-1.0 SODIUM 144 mmol/L 135-148 CHLORIDE 106 mmol/L 98-110 CARBON DIOXIDE 31 mmol/L 21-32 ALBUMIN 2.3 gm/dL 3.4-5.0 PHOSPHORUS 2.4 mg/dL 2.5-4.9 MAGNESIUM - 09/27/16 04:55 MAGNESIUM 1.9 mg/dL 1.8-2.4 Encounters ACCT No. Visit Discharge Status Pt. Type Provider Facility Loc./Unit Complaint Date/Time [id number] 07/08/2013 07/08/2013 CLS Outpatient 08:39:00 23:59:59 [id number] 07/06/2013 07/06/2013 CLS Outpatient 10:51:00 23:59:59 [id number] 06/25/2013 06/25/2013 CLS Outpatient 07:52:00 23:59:59 [id number] 05/28/2013 05/28/2013 CLS Outpatient 10:42:00 23:59:59 [id number] 04/29/2013 04/29/2013 CLS Outpatient 09:24:00 23:59:59 [id number] 01/27/2013 01/27/2013 CLS Outpatient 09:39:00 23:59:59
--- NOTE | 2016-11-14 19:36 | Emergency Department Report ---
Psych HPI - General Chief Complaint: Psychiatric Symptoms Stated Complaint: [facility] eval Time Seen by Provider: 11/14/16 19:00 Source: patient, family (daughter) Mode of arrival: ambulatory Limitations: no limitations - History of Present Illness HPI Narrative: She is brought in today by her daughter for medical clearance exam for [facility] admission. She has been accepted by the [facility] already. She does live in her own home and her family has noticed escalating behaviors over the last few days. She does have a history of bipolar disorder and dementia and she is not safe to be at home by herself. During examination she does speak quickly and does continue with speech from one idea to another. Is very animated and direct in her speech. MD complaint: altered mental status Onset (ago): day(s) Duration: constant Relieving factors: none Exacerbating factors: none Associated psychiatric symptoms: none Treatments prior to arrival: none - Related Data Home Medications Medication Instructions Recorded Confirmed Beclomethasone Dipropionate [Qvar 1 puff INH PRN PRN 11/14/16 11/14/16 80] Levothyroxine Sodium 75 mcg PO ACB 11/14/16 11/14/16 Allergies Allergy/AdvReac Type Severity Reaction Status Date / Time clemastine Allergy Unknown Verified 11/14/16 19:41 diphenhydramine Allergy Unknown Verified 11/14/16 19:41 divalproex sodium Allergy Unknown Verified 11/14/16 19:41 escitalopram [From Lexapro] Allergy Unknown Verified 11/14/16 19:41 menthol Allergy Unknown Verified 11/14/16 19:41 phenylpropanolamine Allergy Unknown Verified 11/14/16 19:41 prednisone Allergy Unknown Verified 11/14/16 19:41 pseudoephedrine Allergy Unknown Verified 11/14/16 19:41 risperidone [From Risperdal] Allergy Unknown Verified 11/14/16 19:41 simvastatin Allergy Unknown Verified 11/14/16 19:41 triprolidine Allergy Unknown Verified 11/14/16 19:41 Review of Systems Constitutional: Denies: fever, chills, weakness Eyes: Denies: vision change ENT: Denies: ear pain, throat pain, congestion Cardiovascular: Denies: chest pain, palpitations, dyspnea on exertion, edema Respiratory: Denies: cough, dyspnea, wheezes Gastrointestinal: Denies: abdominal pain, nausea, vomiting, diarrhea Integumentary: Denies: rash Neurological: Denies: headache, weakness, numbness, paresthesias [facility] Patient Stated Medical History Alzheimer's Disease Yes Dementia Yes Other HEENT Yes: glasses Hypertension Yes Other Cardiology Yes: HYPERLIPIDEMIA Asthma Yes Other GI Yes: DIVERTICULOSIS Bipolar Disorder Yes - Social History Smoking status: Never smoker Physical Exam - Limitations Limitations: no limitations - General General appearance: alert, in no apparent distress - Normal Exams: Neck:: Full range of motion, without adenopathy, JVD, bruits or thyromegaly Chest/Respirations:: Clear all carter, with good airflow, and symmetry bilaterally Cardiovascular:: Regular rate and rhythm, without murmur or gallop, Pulses 2+ all extremities, capillary refill, <2 seconds all extremities Abdomen:: Bowel sounds positive, soft, non-tender, non-distended, no hepatosplenomegaly, masses or bruits noted Lymphatic:: No lymphadenopathy, or lymphedema noted Neurological:: Patient is alert, and oriented (She does know that she is at the hospital in [facility]), cranial nerves, motor/sensory/cerebellar, exams w/o gross deficits, to observation Psychiatric:: Patient exhibits, appropriate attention, emotion and affect Course Vital Signs Temperature 98.1 F 11/14/16 19:10 Pulse Rate 114 H 11/14/16 19:10 Respiratory Rate 20 11/14/16 19:10 Blood Pressure 160/89 H 11/14/16 19:10 Pulse Oximetry 94 11/14/16 19:10 Temperature 98.1 F 11/14/16 19:10 Pulse Rate 114 H 11/14/16 19:10 Respiratory Rate 20 11/14/16 19:10 Blood Pressure 160/89 H 11/14/16 19:10 Pulse Oximetry 94 11/14/16 19:10 Psych - MDM Narrative Medical decision making narrative: Labs are unremarkable. Did attempt to collect urine but it was contaminated with stool. Did wait to see if she could give another specimen but she did become agitated and stated that she would not be giving any more urine and we should just let her go home. Will to ahead with admission to [facility] unit and have them collect sample down there. - Differential Diagnosis Likely: acute psychosis, bipolar disorder, depression, acute anxiety - Lab Data Attestation: I reviewed the patient's lab results. Result diagrams: 11/14/16 19:59 11/14/16 19:59 Lab Results 11/14/16 11/14/16 Range/Units 19:59 19:59 WBC 12.1 H (4.5-11.0) T/MM3 RBC 4.05 (4.00-5.20) M/MM3 Hgb 11.2 L (12-16) GM/DL Hct 35.2 L (36-46) % MCV 86.9 (80-100) UM3 MCH 27.7 (26-34) UUG MCHC 31.8 (31-37) GM/DL RDW Std Deviation 53.9 H (36.9-50.2) FL Plt Count 269 (130-400) T/MM3 MPV 11.1 (9.4-12.4) UM3 Immature Gran % (Auto) 0.2 (0.0-0.5) % Neut % (Auto) 27.7 L (33-66) % Lymph % (Auto) 15.7 L (23-45) % Lincoln % (Auto) 5.7 (0-9.0) % Eos % (Auto) 50.2 H (0-4) % Baso % (Auto) 0.5 (0-2) % Neut # 3.3 (1.8-7.7) T/MM3 Lymph # 1.9 (1-4.8) T/MM3 Lincoln # 0.7 (0-0.8) T/MM3 Eos # 6.1 H (0-0.5) T/MM3 Baso # 0.1 (0-0.2) T/MM3 Abs Immat Gran (auto) 0.03 (0.00-0.03) T/MM3 Turbidity < 20 (0-20) Sodium 144 (134-144) MEQ/L Potassium 3.7 (3.6-5) MEQ/L Chloride 107 (98-107) MEQ/L Carbon Dioxide 26 (22-30) MEQ/L Anion Gap 11 (5-15) MEQ/L BUN 29.0 H (7-17) MG/DL Creatinine 1.2 (0.7-1.2) MG/DL GFR Calculation 44 BUN/Creatinine Ratio 24 (6-26) RATIO Glucose 85 (65-110) MG/DL Calculated Osmolality 282 H (261-280) MOSM/KG Calcium 9.2 (8.4-10.2) MG/DL Total Bilirubin 0.60 (0.20-1.30) MG/DL Icterus Index < 2 (0-7) AST 61 H (14-36) U/L ALT 65 H (9-52) U/L Alkaline Phosphatase 151 H (38-126) U/L Total Protein 7.2 (6.3-8.2) G/DL Albumin 3.4 L (3.5-5.0) G/DL Globulin 3.8 H (2.4-3.6) G/DL Albumin/Globulin Ratio 0.9 L (1.1-2.2) RATIO TSH 0.25 L (0.47-4.68) MIU/L Specimen Hemolysis 17 (0-25) Disposition Clinical Impression: Dementia Qualifiers: Dementia type: associated with other underlying disease Dementia behavioral disturbance: with behavioral disturbance Qualified Code(s): F02.81 - Dementia in other diseases classified elsewhere with behavioral disturbance Disposition: Discharged Home, Self-Care Condition: Stable Prescriptions: No Action Levothyroxine Sodium 75 mcg PO ACB Beclomethasone Dipropionate [Qvar 80] 1 puff INH PRN PRN PRN Reason: Prn Orders Time of Disposition: 21:27 - Seen By: midlevel
[2016-11-14] MEDS ORDERED: HALOPERIDOL 5 MG/ML INJECTION IM PRN (22:49)
[2016-11-14] MEDS ORDERED: HALOPERIDOL 0.5 MG TABLET PO PRN (22:49)
[2016-11-14] MEDS ORDERED: LORazepam 0.5 MG TABLET PO PRN (22:49)
[2016-11-14 23:50] VITALS: BMI 22.6
--- NOTE | 2016-11-15 08:23 | XRay Report ---
Indication: medical screening exam Procedure: XR chest 2V: Encounter: Initial Comparison: None Technique: PA and lateral radiographs of the chest were obtained. Findings: Lungs and airways: Increased lung volumes raising consideration for COPD. Bibasilar airspace opacity seen only on the frontal radiograph most suggestive of atelectasis/fibrosis. No other focal/confluent airspace consolidation. Normal pulmonary vasculature. Pleura: No pleural effusion or pneumothorax. Heart and mediastinum: Aortic atherosclerosis. The cardiomediastinal silhouette and great vessels are otherwise within normal limits. Osseous structures and soft tissues: No acute osseous abnormality is seen. Degenerative disc disease of the thoracic spine. Impression: No acute cardiopulmonary process. .
--- NOTE | 2016-11-15 13:29 | History & Physical Report ---
<[place] - Last Filed: 11/15/16 15:01> History of Present Illness Date: 11/15/16 Chief complaint: exacerbation of bipolar symptoms HPI: Patient is a 75-year-old white female currently living in an independent living apartment at [facility]. She was admitted to the [facility] through the emergency department due to exhibiting an exacerbation of bipolar symptoms. She has had increased energy, restlessness, darting out of her home, irregular sleep patterns, and decreased appetite. She has had paranoid delusions about her family, and family members have mentioned that she has been responding to visual hallucinations. Her daughters have been trying to provide care for her over the past month and feel the patient is a potential danger to herself because of how impulsive she has an because of her poor judgment. Patient had seen Dr. Elizabeth on 09/26/16 (during hospitalization) and had her on Seroquel 25 mg at bedtime and Geodon 20 mg with dinner. She has been refusing all of her medicines except her thyroid medicine. Supposedly she has been taking more than 1 a day of her Synthroid. Patient has been hospitalized several times over the past 5 months. She was hospitalized in July for operative repair of humeral fracture. Following that hospitalization she was reportedly treated for pneumonia. She was hospitalized again in September for diverticulitis. And again in October when she underwent EGD for her ongoing abdominal pain. Review of Systems Comprehensive ROS: completed and no additional positive findings except those as stated - Constitutional Comments: Feels "woozy" at times - Genitourinary Genitourinary: Present: dysuria (has noted some burning today.), urinary urgency (feels like she has the urge to go and then cannot urinate). Absent: hematuria, urinary frequency - Psychiatric Psychiatric: Present: visual hallucinations (per family) PFSH Bipolar disorder Mild cognitive impairment Allergic rhinitis Asthma Breast cancer-BRCA gene positive Hypertension Hyperlipidemia Osteoporosis Postsurgical hypothyroidism Eosinophilic duodenitis Past hospitalizations: Admission to [facility] for humeral fracture in July, Admission to [facility] for diverticulitis September 07- Hospitalized in October 2016 for abdominal pain. EGD with biopsy of duodenum and stomach was performed at that time. Duodenum showed eosinophilia. Surgical History: Internal fixation of humeral fracture-07/15/16. Bilateral oophorectomy-2008. Tonsillectomy-1994. Thyroidectomy-1993. Hysterectomy- 1973. Lumpectomy Family History: Father-alcoholism, allergic rhinitis, leukemia Mother-pancreatic cancer, obesity Brother-asthma, coronary artery disease, sleep apnea, stroke Sister-breast cancer, autoimmune disorder, rheumatic disease. - Social History Smoking status: Never smoker Substance use type: does not use Alcohol intake frequency: other (occasionally-wine) Housing: apartment (independent living) Household members: none Current occupational status: retired (previously volunteered at the [employer]) Current residence: Independent Living Social history: Patient is She enjoys gardening. She is active with her [facility] PCP-Dr. Kvng Andrew (although patient reports she is in the process of getting a new PCP) Dr. 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 Medications Home Medications Medication Instructions Recorded Confirmed Type Beclomethasone Dipropionate [Qvar 1 puff INH PRN PRN 11/14/16 11/14/16 History 80] Levothyroxine Sodium 75 mcg PO ACB 11/14/16 11/14/16 History Amlodipine [Norvasc] 5 mg PO DAILY 11/15/16 11/15/16 History Atorvastatin [Lipitor] 10 mg PO DAILY 11/15/16 11/15/16 History Calcium Gluconate 500 mg PO TID 11/15/16 11/15/16 History Cholecalciferol (Vitamin D3) 1,000 unit PO DAILY 11/15/16 11/15/16 History [Vitamin D3] Fluticasone/Salmeterol [Advair Hfa 12 gm INH BID 11/15/16 11/15/16 History 115-21 Mcg Inhaler] Losartan Potassium [Cozaar] 25 mg PO DAILY 11/15/16 11/15/16 History Metoclopramide [Reglan] 10 mg PO TID 11/15/16 11/15/16 History Multi-Vitamin Plain 1 tab PO DAILY 11/15/16 11/15/16 History Multivitamin [One Daily] 1 each PO DAILY 11/15/16 11/15/16 History Pantoprazole Sodium [Protonix] 1 tab PO ACB 11/15/16 11/15/16 History Refresh Plus 1 drop EACH EYE BID 11/15/16 11/15/16 History Sucralfate [Carafate] 1 gm PO TID 11/15/16 11/15/16 History Tiotropium [place] [Spiriva 1.25 mcg INH DAILY 11/15/16 11/15/16 History Respimat] Allergies Allergy/AdvReac Type Severity Reaction Status Date / Time clemastine Allergy Unknown Verified 11/14/16 19:41 diphenhydramine Allergy Unknown Verified 11/14/16 19:41 divalproex sodium Allergy Unknown Verified 11/14/16 19:41 escitalopram [From Lexapro] Allergy Unknown Verified 11/14/16 19:41 menthol Allergy Unknown Verified 11/14/16 19:41 phenylpropanolamine Allergy Unknown Verified 11/14/16 19:41 prednisone Allergy Unknown Verified 11/14/16 19:41 pseudoephedrine Allergy Unknown Verified 11/14/16 19:41 risperidone [From Risperdal] Allergy Unknown Verified 11/14/16 19:41 simvastatin Allergy Unknown Verified 11/14/16 19:41 triprolidine Allergy Unknown Verified 11/14/16 19:41 Exam Vital Signs: Temperature 97.9 F 11/15/16 08:00 Pulse Rate 84 11/15/16 08:00 Respiratory Rate 16 11/15/16 08:00 Blood Pressure 128/80 11/15/16 08:00 Pulse Oximetry 96 11/15/16 08:00 Oxygen Delivery Method Room Air Height: 1.65 m Weight: 61.9 kg Body Mass Index: 22.6 - Constitutional Present: no acute distress, well nourished, well developed, cooperative - Routine HEENT Exam Head: Present: normocephalic, atraumatic Eye: Present: EOMI, PERRL ENT: Present: mucous membranes moist, dentition normal - Routine Neck Exam Present: supple, full ROM - Routine Respiratory Exam Present: CTA bilaterally. Absent: wheezes - Routine Cardiovascular Exam Present: RRR, S1, S2. Absent: murmur - Routine Abdominal Exam Present: soft, normoactive bowel sounds, tenderness, non distended - Routine Extremities Exam Present: no edema, normal capillary refill - Routine Back/Spine/Pelvis Exam Back/Spine: Present: full ROM. Absent: CVA tenderness - Routine Skin Exam Present: dry, warm - Routine Neurological Exam Present: alert, oriented X3, moving all extremities Patient is hyperverbal - Routine Psychiatric Exam Present: normal affect Comments: Patient is cooperative, but jumps from subject to subject during interview. Results - Labs CBC & Chem 7: 11/14/16 19:59 11/14/16 19:59 Labs: Laboratory Tests 11/15/16 06:41 Urine Occult Blood Trace-intact Ur Leukocyte Esterase 2+ A Urine RBC 0-1 Urine WBC 10-20 H Urine WBC Clumps Few Ur Squamous Epith Cells 0-5 Urine Bacteria 4+ H Hyaline Casts 0-1 09/21 CT head --nonspecific white matter hypoattenuation likely representing chronic microvascular change. Generalized parenchymal volume loss. 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 Adjust meds per psych. Encourage patient to participate in unit activities. Provide safe environment. UTI -Given her abnormal urinalysis, urinary symptoms and leukocytosis, will treat with nitrofurantoin 100 mg twice a day for 7 days. Adjust therapy as needed once culture is resulted. Asthma -Continue Advair and Spiriva for her asthma. If she should require DuoNeb treatment, this can be ordered. Hypertension -Restart Cozaar. Monitor pressures. As she was not taking any other medication other than her thyroid, will add one antihypertensive back at a time. Will add back in amlodipine 5 mg if pressures are not controlled. Hyperlipidemia -Continue atorvastatin GERD -As patient has been off of all of her medicines except for Synthroid, will wait to add back in her Protonix, Carafate and Reglan. If she has no GI complaints, no reason to restart these medications. (Carafate, Protonix, Reglan are on med list from most recent office visit with PCP) Osteoporosis Will hold calcium and vitamin D during hospitalization, but can resume on dismissal Postsurgical hypothyroidism -Continue Synthroid at current dose. Her TSH was slightly low at 0.25, however, given that it sounds like she was taking more than one Synthroid a day, this is expected. She will need repeat TSH in the outpatient setting in approximately 6 weeks. Hospitalist team will plan to follow patient to manage chronic medical problems throughout her stay. At discharge, patient's care will return to Dr.Lei Andrew (or whoever she has decided to see as her PCP at that time) Sepsis Assessment - Evaluation Sepsis screening result: No Definite Risk Hospital Course Summary Disclaimer: The visit summary below is not to be considered part of the above Progress Note. Hospital Course: 11/15/16 hospitalist consult Bipolar disorder/dementia -Agree with admission to [facility]. Adjust meds per psych. Encourage patient to participate in unit activities. Provide safe environment. UTI -Given her abnormal urinalysis, urinary symptoms and leukocytosis, will treat with nitrofurantoin 100 mg twice a day for 7 days. Adjust therapy as needed once culture is resulted. Asthma -Continue Advair and Spiriva for her asthma. If she should require DuoNeb treatment, this can be ordered. Hypertension -Restart Cozaar. Monitor pressures. As she was not taking any other medication other than her thyroid, will add one antihypertensive back at a time. Will add back in amlodipine 5 mg if pressures are not controlled. Hyperlipidemia -Continue atorvastatin GERD -As patient has been off of all of her medicines except for Synthroid, will wait to add back in her Protonix, Carafate and Reglan. If she has no GI complaints, no reason to restart these medications. (Carafate, Protonix, Reglan are on med list from most recent office visit with PCP) Osteoporosis Will hold calcium and vitamin D during hospitalization, but can resume on dismissal Postsurgical hypothyroidism -Continue Synthroid at current dose. Her TSH was slightly low at 0.25, however, given that it sounds like she was taking more than one Synthroid a day, this is expected. She will need repeat TSH in the outpatient setting in approximately 6 weeks. Hospitalist team will plan to follow patient to manage chronic medical problems throughout her stay. At discharge, patient's care will return to Dr.Lei Andrew (or whoever she has decided to see as her PCP at that time) <Tabby Robles - Last Filed: 11/15/16 23:09> History of Present Illness Date: 11/15/16 [facility] Patient Stated Medical History Alzheimer's Disease Yes Dementia Yes Other HEENT Yes: glasses Hypertension Yes Other Cardiology Yes: HYPERLIPIDEMIA Asthma Yes Other GI Yes: DIVERTICULOSIS Hx Incontinence Yes Bipolar Disorder Yes Schizophrenia Yes Exam Vital Signs: Temperature 99.1 F 11/15/16 21:49 Pulse Rate 80 11/15/16 21:49 Respiratory Rate 12 11/15/16 21:49 Blood Pressure 139/71 11/15/16 21:49 Pulse Oximetry 96 11/15/16 21:49 Oxygen Delivery Method Room Air Height: 1.65 m Weight: 61.9 kg Results - Labs CBC & Chem 7: 11/15/16 20:43 11/14/16 19:59 Microbiology Results: Microbiology 11/15/16 06:41 Urine, Voided (Cc/notcc) Urine Culture - Preliminary Culture Initiated - Results Pending Assessment and Plan Assessment and Plan: I have independently evaluated and examined this patient. I reviewed the chart, the patient's history, and the [employer]/PA's documented findings as above. We discussed and formulated the assessment and plan as above with additions as below: Mrs. Vides is a talkative 75-year-old female. She did not appear to have any specific concerns when seen although keeping her on track is very difficult. The patient has recovered well from recent elbow fracture and reports good relief of chronic cough since initiating Spiriva within the past year. Respirations are nonlabored and air flow is good with clear breath sounds anteriorly/superiorly Cardiac rhythm is regular with normal S1 and S2 Abdomen soft Cranial nerves 3-12 intact, motor tone normal, sensation intact to light touch, moving all extremities well Chest x-ray reviewed by myself-unremarkable area CT head also reviewed by myself and demonstrates age-appropriate atrophy and small vessel ischemic disease but no acute pathology. Minor anemia and chronic kidney disease present in addition to above problems- both slightly in excess of baseline. Hemoglobin has been approximately 12.5-13 reassessed recently at [facility] although was reported to be 11.1 and 11.3 on 09/09/16; creatinine typically about 0.9 with GFR just below 60 or slightly above. TSH was within normal range at 1.87 in May 2016. Hospital Course Summary Disclaimer: The visit summary below is not to be considered part of the above Progress Note.
--- NOTE | 2016-11-15 14:34 | CT Scan Report ---
EXAM: CT head/brain wo con DATE: 11/15/2016 10:49 PM ENCOUNTER: Initial INDICATION: Mental status change COMPARISON: None available. TECHNIQUE: 5 mm axial tomographic images were obtained of the head without contrast. The current CT scan was performed using radiation dose-reduction techniques. FINDINGS: Ill defined hypoattenuations within the periventricular deep white matter, a nonspecific finding, however most suggestive of chronic small vessel ischemic disease. The wilson-white matter junction is otherwise normal. No intra or extra-axial mass or hemorrhage is identified. There is no midline shift. Symmetric prominence of the ventricles and cerebral sulci consistent with age appropriate cerebral volume loss. The ventricles are otherwise normal in shape and morphology. The basilar cisterns are patent. No acute osseous or soft tissue abnormality. Mild pansinus disease. The visualized portions of the orbits and globes are normal. The mastoid air cells are clear. IMPRESSION: 1. No acute intracranial process identified by CT. 2. Age appropriate cerebral volume loss and mild chronic small vessel ischemic disease. 3. Mild pansinus disease. .
[2016-11-15] MEDS: NITROFURANTOIN (MACROBID) 100 MG CAPSULE PO SCH (17:46)
--- NOTE | 2016-11-15 18:14 | 24 Hour Neuropsychiatic Eval ---
Date of Admission: 11/14/16 21:43 Chief complaint: "My kids have been brainwashed" History of Present Illness: HPI: 75 y/o CF with a hx of Bipolar D/O sent from [facility] for increasing agitation, impulsiveness and mood swings. On face to face the pt is grossly manic with pressured speech, tangential, hyperverbal, and extremely irritable. Pt has poor insight and states she is here because her kids have been brainwashed. She denies S/I. She is alert and oriented x 3. STRESSORS: Pt states she has been dealing with numerous stressors but is unable to elaborate. PSYCH ROS; Pt mood is extremely labile with pressured speech. She is tangential and family reports high energy and decreased need for sleep. She denies feeling depressed. She denies anxiety or psychosis. PAST PSYCH: Pt states she was at [facility] in 1998 for similar symptoms after taking a steroid. She denies any other psychiatric care. She was recently seen in consult but Dr. Elizabeth at [place] and was started on low dose Seroquel and Geodon. [facility] Patient Stated Medical History Alzheimer's Disease Yes Dementia Yes Other HEENT Yes: glasses Hypertension Yes Other Cardiology Yes: HYPERLIPIDEMIA Asthma Yes Other GI Yes: DIVERTICULOSIS Hx Incontinence Yes Bipolar Disorder Yes Schizophrenia Yes Surgical History: Internal fixation of humeral fracture-07/15/16. Bilateral oophorectomy-2008. Tonsillectomy-1994. Thyroidectomy-1993. Hysterectomy- 1973. Lumpectomy - Social History Smoking status: Never smoker Current residence: [facility] Living Review of Systems - Psychiatric Psychiatric: Present: behavioral changes, mood swings Mental Status Exam Vitals: Last Vital Signs Temp 99.7 F 11/15/16 16:07 Pulse 95 11/15/16 16:07 Resp 16 11/15/16 16:07 BP 128/74 11/15/16 16:07 Pulse Ox 93 11/15/16 16:07 Height: 1.65 m Weight: 61.9 kg - Mental Status Exam Muscle Strength/Tone: Normal Dressing: Casual Grooming: Fair Attitude: Tense Motor Activity: Agitation Eye Contact: Fair Speech: Pressured Volume: Loud Rhythm: Perseveration Orientation: Oriented X4 Mood: Irritable Affect: Angry Rate of Thoughts: Pressured Thought Organization: Tangential Associations: Flight of Ideas Abstract Reasoning: Poor abstract reasoning Thought Content: Delusions Perception/Psychotic: Hx psychosis, not current Fund of Knowledge: Appropriate Memory: Grossly Intact Suicidal Ideation: None Homicidal Ideation: None Insight: Poor Judgement: Poor Impulse Control: Poor - Laboratory Result Diagrams: 11/14/16 19:59 11/14/16 19:59 Laboratory Results - last 24 hr 11/15/16 06:41 Ur Collection Type Urine, clean catch Urine Color Yellow Urine Clarity Sl cloudy Urine pH 5.5 Ur Specific [place] 1.015 Urine Protein Negative Urine Glucose (UA) Negative Urine Ketones Trace A Urine Occult Blood Trace-intact Urine Nitrate Negative Urine Bilirubin Negative Urine Urobilinogen 0.2 Ur Leukocyte Esterase 2+ A Urine RBC 0-1 Urine WBC 10-20 H Urine WBC Clumps Few Ur Squamous Epith Cells 0-5 Urine Bacteria 4+ H Hyaline Casts 0-1 Ur Culture Indicated? Cult reflexed &setup Assessment and Plan (1) Bipolar disorder, current episode manic w/o psychotic features, severe Current visit: Yes Status: Acute Continue medical management. Will reach out to DPOA for collateral. Will discuss start of Zyprexa and Depakote with DPOA consent
[2016-11-15] MEDS: OLANZapine 5 MG TABLET PO SCH ×3 (19:46→19:54)
[2016-11-16] MEDS ORDERED: REFRESH CLASSIC Eye Drops 0.4ml EACH EYE PRN (06:50)
[2016-11-16] MEDS: LEVOTHYROXINE 75 MCG TABLET PO SCH (07:54)
--- NOTE | 2016-11-16 10:09 | Neuropsych Progress Note ---
[facility] Subjective Date: 11/16/16 - Sujective/Severity of Illness Medications: Artificial Tears (Refresh Classic) 1 drop EACH EYE BID PRN PRN Reason: DRY EYES Atorvastatin Calcium (Lipitor) 10 mg PO HS RAMEZ Haloperidol (Haldol) 0.5 mg PO Q6H PRN PRN Reason: Extreme agitation Haloperidol Lactate (Haldol) 0.5 mg IM Q6H PRN PRN Reason: Extreme agitation Levothyroxine Sodium (Synthroid) 75 mcg PO ACB [facility] Last Admin: 11/16/16 07:54 Dose: 75 mcg Lorazepam (Ativan) 0.5 mg PO Q6H PRN PRN Reason: Extreme agitation Lorazepam (Ativan Inj) 0.5 mg IM Q6H PRN PRN Reason: Extreme agitation Losartan Potassium (Cozaar) 25 mg PO DAILY RAMEZ Nitrofurantoin Macrocrystals (Macrobid) 100 mg PO BIDWM [facility] Stop: 11/22/16 23:59 Last Admin: 11/15/16 17:46 Dose: 100 mg Olanzapine (Zyprexa) 5 mg PO HS [facility] Last Admin: 11/15/16 19:54 Dose: 5 mg Fluticasone/Salmeterol (Advair Hfa) 1 puff INH BID RAMEZ Tiotropium [place] (Spiriva) 1 cap ORAL INH DAILY [facility] Subjective: Pt seen and chart examined. Nursing reports pt is doing well. Slept well last night. On face to face the pt remains hyperverbal and pressured but it is better. She is less irritable. She reports her mood is stable. Denies S/i or psychosis. Tolerating meds Start Time: 09:00 Stop Time: 09:15 Mental Status Exam Vitals: Last Vital Signs Temp 97.8 F 11/16/16 08:00 Pulse 79 11/16/16 08:00 Resp 22 11/16/16 08:00 BP 148/69 H 11/16/16 08:00 Pulse Ox 94 11/16/16 08:00 Height: 1.65 m Weight: 61.9 kg - Mental Status Exam Muscle Strength/Tone: Normal Dressing: Casual Grooming: Fair Attitude: Tense Motor Activity: Normal Eye Contact: Fair Speech: Pressured Volume: Normal Rhythm: Appropriate Rhythm Orientation: Oriented X4 Mood: Irritable Rate of Thoughts: Pressured Thought Organization: Tangential Associations: Flight of Ideas Abstract Reasoning: Poor abstract reasoning Thought Content: Normal Perception/Psychotic: Perception Normal Fund of Knowledge: Appropriate Memory: Grossly Intact Suicidal Ideation: None Homicidal Ideation: None Insight: Poor Judgement: Poor Impulse Control: Poor - Laboratory Result Diagrams: 11/15/16 20:43 11/16/16 07:35 Laboratory Results - last 24 hr 11/15/16 11/16/16 20:43 07:35 WBC 12.2 H RBC 3.79 L Hgb 10.7 L Hct 32.9 L MCV 86.8 MCH 28.2 MCHC 32.5 RDW Std Deviation 52.4 H Plt Count 255 MPV 11.4 Immature Gran % (Auto) 0.2 Neut % (Auto) 31.4 L Lymph % (Auto) 13.2 L [place] % (Auto) 4.7 Eos % (Auto) 50.1 H Baso % (Auto) 0.4 Neut # 3.8 Lymph # 1.6 [place] # 0.6 Eos # 6.1 H Baso # 0.1 Abs Immat Gran (auto) 0.03 Turbidity < 20 Sodium 143 Potassium 3.9 Chloride 107 Carbon Dioxide 30 Anion Gap 6 BUN 19.0 H Creatinine 1.1 GFR Calculation 48 BUN/Creatinine Ratio 17 Glucose 77 Calculated Osmolality 276 Calcium 8.8 Icterus Index < 2 Specimen Hemolysis < 15 Assessment and Plan (1) Bipolar disorder, current episode manic w/o psychotic features, severe Current visit: Yes Status: Acute Hospital Course Summary Disclaimer: The visit summary below is not to be considered part of the above Progress Note. Hospital Course: 11/15/16 hospitalist consult Bipolar disorder/dementia -Agree with admission to [facility]. Adjust meds per psych. Encourage patient to participate in unit activities. Provide safe environment. UTI -Given her abnormal urinalysis, urinary symptoms and leukocytosis, will treat with nitrofurantoin 100 mg twice a day for 7 days. Adjust therapy as needed once culture is resulted. Asthma -Continue Advair and Spiriva for her asthma. If she should require DuoNeb treatment, this can be ordered. Hypertension -Restart Cozaar. Monitor pressures. As she was not taking any other medication other than her thyroid, will add one antihypertensive back at a time. Will add back in amlodipine 5 mg if pressures are not controlled. Hyperlipidemia -Continue atorvastatin GERD -As patient has been off of all of her medicines except for Synthroid, will wait to add back in her Protonix, Carafate and Reglan. If she has no GI complaints, no reason to restart these medications. (Carafate, Protonix, Reglan are on med list from most recent office visit with PCP) Osteoporosis Will hold calcium and vitamin D during hospitalization, but can resume on dismissal Postsurgical hypothyroidism -Continue Synthroid at current dose. Her TSH was slightly low at 0.25, however, given that it sounds like she was taking more than one Synthroid a day, this is expected. She will need repeat TSH in the outpatient setting in approximately 6 weeks. Hospitalist team will plan to follow patient to manage chronic medical problems throughout her stay. At discharge, patient's care will return to Dr.Lei Andrew (or whoever she has decided to see as her PCP at that time) 11/16/16 10:09 Continue current care
[2016-11-16] MEDS: LOSARTAN 50 MG TABLET PO SCH (10:26)
[2016-11-16] MEDS: NITROFURANTOIN (MACROBID) 100 MG CAPSULE PO SCH ×2 (10:26→17:22)
[2016-11-16] MEDS: TIOTROPIUM 18mcg/cap HANDIHALER ORAL INH SCH (14:01)
[2016-11-16] MEDS: FLUTICASONE INH SCH ×3 (14:01→19:44)
[2016-11-16] MEDS: SALMETEROL INH SCH ×3 (14:01→19:44)
--- NOTE | 2016-11-16 15:22 | Progress Note ---
Subjective: Halle is seen today in follow up. She is up visiting with another patient, she is overly complementary of the patient "Look at his eyes- he has the biggest , most beautiful eyes I have ever seen. He has a wonderful . He has everything a man could want." She is very hyperverbal, and jumps to various topics quickly. She is frustrated that she is in the hospital. Reports that she is feeling better since starting the antibiotic. Objective Vital signs: Temperature 97.8 F 11/16/16 08:00 Pulse Rate 79 11/16/16 08:00 Respiratory Rate 18 11/16/16 14:01 Blood Pressure 148/69 H 11/16/16 08:00 Pulse Oximetry 94 11/16/16 08:00 Oxygen Delivery Method Room Air Height: 1.65 m Weight: 61.9 kg Body Mass Index: 22.6 - Constitutional Present: no acute distress, cooperative Comments: Well groomed; Very hyperverbal. - Routine HEENT Exam Head: Present: normocephalic, atraumatic Eye: Present: EOMI, PERRL, normal accommodation ENT: Present: mucous membranes moist - Routine Respiratory Exam Present: CTA bilaterally. Absent: rales, rhonchi, wheezes - Routine Cardiovascular Exam Present: RRR, S1, S2, no murmur - Routine Abdominal Exam Present: soft, normoactive bowel sounds, non distended, non tender - Routine Extremities Exam Present: no edema - Routine Musculoskeletal Exam Musculoskeletal: Present: no clubbing or cyanosis, moving extremities well - Routine Neurological Exam Present: alert, oriented X3, moving all extremities - Routine Psychiatric Exam Present: cooperative, manic. Absent: normal affect, normal thought process, good insight, good judgment Results - Labs CBC & Chem 7: 11/15/16 20:43 11/16/16 07:35 Microbiology Results: Microbiology 11/15/16 06:41 Urine, Voided (Cc/notcc) Urine Culture - Preliminary Gram Negative Marcos - Impressions CT Head IMPRESSION: 1. No acute intracranial process identified by CT. 2. Age appropriate cerebral volume loss and mild chronic small vessel ischemic disease. 3. Mild pansinus disease. Assessment and Plan DVT Prophylaxis: other (N/A) GI Prophylaxis: Protonix Resuscitation Status: Do Not Resuscitate Assessment and Plan: Problem list: Acute Ginny Schizophrenia HTN HLD Hypothyroidism UTI Plan: Continue supportive care. Patient remains hyperverbal and manic.- per attending. Continue macrobid for UTI- await cultures- may need to adjust. Ongoing leukocytosis- repeat CBC in AM. Continue Losartan. Restart lower dose Norvasc. Ginny may partially be due to hyperactive thyroid- pt. was overtaking synthroid. Plan to recheck TSH in 4-6 weeks. Recent admission for epigastric pain. Restart PPI/Carafate. - Time spent with patient 25 - 35 minutes Sepsis Assessment - Evaluation Sepsis screening result: No Definite Risk Hospital Course Summary Disclaimer: The visit summary below is not to be considered part of the above Progress Note. Hospital Course: 11/15/16 hospitalist consult Bipolar disorder/dementia -Agree with admission to [facility]. Adjust meds per psych. Encourage patient to participate in unit activities. Provide safe environment. UTI -Given her abnormal urinalysis, urinary symptoms and leukocytosis, will treat with nitrofurantoin 100 mg twice a day for 7 days. Adjust therapy as needed once culture is resulted. Asthma -Continue Advair and Spiriva for her asthma. If she should require DuoNeb treatment, this can be ordered. Hypertension -Restart Cozaar. Monitor pressures. As she was not taking any other medication other than her thyroid, will add one antihypertensive back at a time. Will add back in amlodipine 5 mg if pressures are not controlled. Hyperlipidemia -Continue atorvastatin GERD -As patient has been off of all of her medicines except for Synthroid, will wait to add back in her Protonix, Carafate and Reglan. If she has no GI complaints, no reason to restart these medications. (Carafate, Protonix, Reglan are on med list from most recent office visit with PCP) Osteoporosis Will hold calcium and vitamin D during hospitalization, but can resume on dismissal Postsurgical hypothyroidism -Continue Synthroid at current dose. Her TSH was slightly low at 0.25, however, given that it sounds like she was taking more than one Synthroid a day, this is expected. She will need repeat TSH in the outpatient setting in approximately 6 weeks. Hospitalist team will plan to follow patient to manage chronic medical problems throughout her stay. At discharge, patient's care will return to Dr.Lei Andrew (or whoever she has decided to see as her PCP at that time) 08/12/17 10:09 Continue current care 11/16/16 15:36 Continue supportive care. Patient remains hyperverbal and manic.- per attending. Continue macrobid for UTI- await cultures- may need to adjust. Ongoing leukocytosis- repeat CBC in AM. Continue Losartan. Restart lower dose Norvasc. Ginny may partially be due to hyperactive thyroid- pt. was overtaking synthroid. Plan to recheck TSH in 4-6 weeks. Recent admission for epigastric pain. Restart PPI/Carafate.
[2016-11-16] MEDS: SUCRALFATE 1 GM TABLET PO SCH (17:22)
[2016-11-16] MEDS: ATORVASTATIN 10 MG TABLET PO SCH (21:47)
[2016-11-16] MEDS: OLANZapine 5 MG TABLET PO SCH (21:47)
[2016-11-17] MEDS: PANTOPRAZOLE 40 MG TABLET PO SCH (07:05)
[2016-11-17] MEDS: LEVOTHYROXINE 75 MCG TABLET PO SCH (07:05)
[2016-11-17] MEDS: NITROFURANTOIN (MACROBID) 100 MG CAPSULE PO SCH ×2 (08:11→17:13)
[2016-11-17] MEDS: SUCRALFATE 1 GM TABLET PO SCH ×3 (08:11→17:13)
[2016-11-17] MEDS: LOSARTAN 50 MG TABLET PO SCH (08:11)
[2016-11-17] MEDS: AMLODIPINE 2.5 MG TABLET PO SCH (08:12)
--- NOTE | 2016-11-17 12:47 | Neuropsych Progress Note ---
[facility] Subjective Date: 11/17/16 - Sujective/Severity of Illness Medications: Amlodipine Besylate (Norvasc) 2.5 mg PO DAILY [facility] Last Admin: 11/17/16 08:12 Dose: 2.5 mg Artificial Tears (Refresh Classic) 1 drop EACH EYE BID PRN PRN Reason: DRY EYES Atorvastatin Calcium (Lipitor) 10 mg PO HS [facility] Last Admin: 11/16/16 21:47 Dose: 10 mg Haloperidol (Haldol) 0.5 mg PO Q6H PRN PRN Reason: Extreme agitation Haloperidol Lactate (Haldol) 0.5 mg IM Q6H PRN PRN Reason: Extreme agitation Levothyroxine Sodium (Synthroid) 75 mcg PO ACB [facility] Last Admin: 11/17/16 07:05 Dose: 75 mcg Lorazepam (Ativan) 0.5 mg PO Q6H PRN PRN Reason: Extreme agitation Lorazepam (Ativan Inj) 0.5 mg IM Q6H PRN PRN Reason: Extreme agitation Losartan Potassium (Cozaar) 25 mg PO DAILY [facility] Last Admin: 11/17/16 08:11 Dose: 25 mg Nitrofurantoin Macrocrystals (Macrobid) 100 mg PO BIDWM [facility] Stop: 11/22/16 23:59 Last Admin: 11/17/16 08:11 Dose: 100 mg Olanzapine (Zyprexa) 5 mg PO HS [facility] Last Admin: 11/16/16 21:47 Dose: 5 mg Pantoprazole Sodium (Protonix Tab) 40 mg PO ACB [facility] Last Admin: 11/17/16 07:05 Dose: 40 mg Fluticasone/Salmeterol (Advair Hfa) 1 puff INH BID [facility] Last Admin: 11/16/16 19:44 Dose: Not Given Sucralfate (Carafate) 1 gm PO AC30 [facility] Last Admin: 11/17/16 12:41 Dose: 1 gm Tiotropium [place] (Spiriva) 1 cap ORAL INH DAILY [facility] Last Admin: 11/16/16 14:01 Dose: 1 cap Subjective: Pt seen and chart examined. Nursing reports pt is doing a little better. Remains somewhat hyperverbal but it is improving and her speech is less pressured. Sleeping and eating well. No behaviors noted. On face to face the pt states she is doing well. her mood is stable and she denies any S/I or psychosis. Tolerating meds Start Time: 12:00 Stop Time: 12:15 Mental Status Exam Vitals: Last Vital Signs Temp 98.6 F 11/17/16 08:00 Pulse 82 11/17/16 08:00 Resp 18 11/17/16 08:00 BP 126/72 11/17/16 08:00 Pulse Ox 94 11/17/16 08:00 Height: 1.65 m Weight: 61.9 kg - Mental Status Exam Muscle Strength/Tone: Normal Dressing: Casual Grooming: Fair Attitude: Cooperative Motor Activity: Normal Eye Contact: Fair Speech: Pressured Volume: Normal Rhythm: Appropriate Rhythm Orientation: Oriented X4 Mood: Euthymic Affect: Bright Rate of Thoughts: Pressured Thought Organization: Tangential Associations: Flight of Ideas Abstract Reasoning: Poor abstract reasoning Thought Content: Normal Perception/Psychotic: Perception Normal Fund of Knowledge: Appropriate Memory: Grossly Intact Suicidal Ideation: None Homicidal Ideation: None Insight: Fair Judgement: Fair Impulse Control: Fair - Laboratory Result Diagrams: 11/17/16 06:49 11/14/16 19:59 Laboratory Results - last 24 hr 11/16/16 11/17/16 07:00 06:49 WBC 11.2 H RBC 3.77 L Hgb 10.6 L Hct 32.9 L MCV 87.3 MCH 28.1 MCHC 32.2 RDW Std Deviation 52.5 H Plt Count 222 MPV 11.4 Immature Gran % (Auto) 0.2 Neut % (Auto) 21.3 L Lymph % (Auto) 14.6 L [place] % (Auto) 5.5 Eos % (Auto) 57.8 H Baso % (Auto) 0.6 Neut # 2.4 Lymph # 1.6 [place] # 0.6 Eos # 6.5 H Baso # 0.1 Abs Immat Gran (auto) 0.02 Turbidity < 20 Sodium 143 Potassium 3.9 Chloride 107 Carbon Dioxide 30 Anion Gap 6 BUN 19.0 H Creatinine 1.1 GFR Calculation 48 BUN/Creatinine Ratio 17 Glucose 77 Calculated Osmolality 276 Calcium 8.8 Icterus Index < 2 Specimen Hemolysis < 15 Assessment and Plan (1) Bipolar disorder, current episode manic w/o psychotic features, severe Current visit: Yes Status: Acute Hospital Course Summary Disclaimer: The visit summary below is not to be considered part of the above Progress Note. Hospital Course: 11/15/16 hospitalist consult Bipolar disorder/dementia -Agree with admission to [facility]. Adjust meds per psych. Encourage patient to participate in unit activities. Provide safe environment. UTI -Given her abnormal urinalysis, urinary symptoms and leukocytosis, will treat with nitrofurantoin 100 mg twice a day for 7 days. Adjust therapy as needed once culture is resulted. Asthma -Continue Advair and Spiriva for her asthma. If she should require DuoNeb treatment, this can be ordered. Hypertension -Restart Cozaar. Monitor pressures. As she was not taking any other medication other than her thyroid, will add one antihypertensive back at a time. Will add back in amlodipine 5 mg if pressures are not controlled. Hyperlipidemia -Continue atorvastatin GERD -As patient has been off of all of her medicines except for Synthroid, will wait to add back in her Protonix, Carafate and Reglan. If she has no GI complaints, no reason to restart these medications. (Carafate, Protonix, Reglan are on med list from most recent office visit with PCP) Osteoporosis Will hold calcium and vitamin D during hospitalization, but can resume on dismissal Postsurgical hypothyroidism -Continue Synthroid at current dose. Her TSH was slightly low at 0.25, however, given that it sounds like she was taking more than one Synthroid a day, this is expected. She will need repeat TSH in the outpatient setting in approximately 6 weeks. Hospitalist team will plan to follow patient to manage chronic medical problems throughout her stay. At discharge, patient's care will return to Dr.Lei Andrew (or whoever she has decided to see as her PCP at that time) 11/16/16 10:09 Continue current care 11/16/16 15:36 Continue supportive care. Patient remains hyperverbal and manic.- per attending. Continue macrobid for UTI- await cultures- may need to adjust. Ongoing leukocytosis- repeat CBC in AM. Continue Losartan. Restart lower dose Norvasc. Ginny may partially be due to hyperactive thyroid- pt. was overtaking synthroid. Plan to recheck TSH in 4-6 weeks. Recent admission for epigastric pain. Restart PPI/Carafate. 11/17/16 12:47 Increase Zyprexa to 10mg at HS
[2016-11-17] MEDS: TIOTROPIUM 18mcg/cap HANDIHALER ORAL INH SCH (18:03)
[2016-11-17] MEDS: FLUTICASONE INH SCH ×2 (18:03→19:07)
[2016-11-17] MEDS: SALMETEROL INH SCH ×2 (18:03→19:07)
[2016-11-17] MEDS: ATORVASTATIN 10 MG TABLET PO SCH ×2 (20:07→22:05)
[2016-11-17] MEDS: OLANZapine 5 MG TABLET PO SCH ×2 (20:08→22:05)
[2016-11-18] MEDS: LEVOTHYROXINE 75 MCG TABLET PO SCH (07:34)
[2016-11-18] MEDS: PANTOPRAZOLE 40 MG TABLET PO SCH (07:35)
--- NOTE | 2016-11-18 08:57 | Progress Note ---
Subjective: Patient seen today while sitting in the day room. She is less talkative than when I saw her previously. She has no complaints other than she is frustrated that she wants to make a phone call and hasn't been allowed to. She is eating well. No urinary complaints. She feels she has been sleeping well, but has been getting up at night to use the bathroom. Objective Vital signs: Temperature 97.8 F 11/18/16 08:00 Pulse Rate 78 11/18/16 08:00 Respiratory Rate 21 11/18/16 08:00 Blood Pressure 124/65 11/18/16 08:00 Pulse Oximetry 97 11/18/16 08:00 Oxygen Delivery Method Room Air Height: 1.65 m Weight: 61.9 kg Body Mass Index: 22.6 - Constitutional Present: no acute distress, well nourished, well developed - Routine HEENT Exam Head: Present: normocephalic, atraumatic Eye: Present: EOMI ENT: Present: mucous membranes moist, dentition normal - Routine Respiratory Exam Present: CTA bilaterally. Absent: wheezes - Routine Cardiovascular Exam Present: RRR. Absent: murmur - Routine Abdominal Exam Present: soft, normoactive bowel sounds, non distended. Absent: tenderness - Routine Extremities Exam Present: no edema, normal capillary refill - Routine Skin Exam Present: dry, warm - Routine Neurological Exam Present: alert, oriented X3, moving all extremities, normal speech. Absent: altered mental status - Routine Lymphatic Exam Lymphatic: Absent: adenopathy - Routine Psychiatric Exam Present: normal affect Results - Labs CBC & Chem 7: 11/17/16 06:49 11/14/16 19:59 Microbiology Results: Microbiology 11/15/16 06:41 Urine, Voided (Cc/notcc) Urine Culture - Final 50,000-100,000 CFU/ml Escherichia coli - Sensitive to all antibiotics tested; however, patient is on nitrofurantoin and this medication is not tested on sensitivy Assessment and Plan Assessment and Plan: Problem list: Acute Ginny-improving Schizophrenia HTN HLD Hypothyroidism UTI Plan: Continue supportive care. Continue macrobid for UTI-culture is sensitive to all antibiotics tested, but macrobid was not on the list. As patient is doing better since starting medication, will continue for the full 7 day course. Continue Losartan and Norvasc for HTN Plan to recheck TSH in 4-6 weeks. PPI and Carafate restarted yesterday - patient is doing well. Zyprexa increased to 10mg yesterday - per psych Sepsis Assessment - Evaluation Sepsis screening result: No Definite Risk Hospital Course Summary Disclaimer: The visit summary below is not to be considered part of the above Progress Note. Hospital Course: 11/15/16 hospitalist consult Bipolar disorder/dementia -Agree with admission to [facility]. Adjust meds per psych. Encourage patient to participate in unit activities. Provide safe environment. UTI -Given her abnormal urinalysis, urinary symptoms and leukocytosis, will treat with nitrofurantoin 100 mg twice a day for 7 days. Adjust therapy as needed once culture is resulted. Asthma -Continue Advair and Spiriva for her asthma. If she should require DuoNeb treatment, this can be ordered. Hypertension -Restart Cozaar. Monitor pressures. As she was not taking any other medication other than her thyroid, will add one antihypertensive back at a time. Will add back in amlodipine 5 mg if pressures are not controlled. Hyperlipidemia -Continue atorvastatin GERD -As patient has been off of all of her medicines except for Synthroid, will wait to add back in her Protonix, Carafate and Reglan. If she has no GI complaints, no reason to restart these medications. (Carafate, Protonix, Reglan are on med list from most recent office visit with PCP) Osteoporosis Will hold calcium and vitamin D during hospitalization, but can resume on dismissal Postsurgical hypothyroidism -Continue Synthroid at current dose. Her TSH was slightly low at 0.25, however, given that it sounds like she was taking more than one Synthroid a day, this is expected. She will need repeat TSH in the outpatient setting in approximately 6 weeks. Hospitalist team will plan to follow patient to manage chronic medical problems throughout her stay. At discharge, patient's care will return to Dr.Lei Andrew (or whoever she has decided to see as her PCP at that time) 11/16/16 10:09 Continue current care 11/16/16 15:36 Continue supportive care. Patient remains hyperverbal and manic.- per attending. Continue macrobid for UTI- await cultures- may need to adjust. Ongoing leukocytosis- repeat CBC in AM. Continue Losartan. Restart lower dose Norvasc. Ginny may partially be due to hyperactive thyroid- pt. was overtaking synthroid. Plan to recheck TSH in 4-6 weeks. Recent admission for epigastric pain. Restart PPI/Carafate. 11/17/16 12:47 Increase Zyprexa to 10mg at HS 11/18/16 09:10 Continue supportive care. Continue macrobid for UTI-culture is sensitive to all antibiotics tested, but macrobid was not on the list. As patient is doing better since starting medication, will continue for the full 7 day course. Continue Losartan and Norvasc for HTN Plan to recheck TSH in 4-6 weeks. PPI and Carafate restarted yesterday - patient is doing well. Zyprexa increased to 10mg yesterday - per psych
[2016-11-18] MEDS: FLUTICASONE INH SCH ×2 (09:00→20:29)
[2016-11-18] MEDS: SALMETEROL INH SCH ×2 (09:00→20:29)
[2016-11-18] MEDS: NITROFURANTOIN (MACROBID) 100 MG CAPSULE PO SCH ×2 (10:21→17:34)
[2016-11-18] MEDS: LOSARTAN 50 MG TABLET PO SCH (10:21)
[2016-11-18] MEDS: SUCRALFATE 1 GM TABLET PO SCH ×3 (10:22→17:34)
[2016-11-18] MEDS: AMLODIPINE 2.5 MG TABLET PO SCH (10:28)
[2016-11-18] MEDS: TIOTROPIUM 18mcg/cap HANDIHALER ORAL INH SCH (18:22)
--- NOTE | 2016-11-18 18:56 | Neuropsych Progress Note ---
[facility] Subjective Date: 11/18/16 - Sujective/Severity of Illness Medications: Amlodipine Besylate (Norvasc) 2.5 mg PO DAILY [facility] Last Admin: 11/18/16 10:28 Dose: 2.5 mg Artificial Tears (Refresh Classic) 1 drop EACH EYE BID PRN PRN Reason: DRY EYES Atorvastatin Calcium (Lipitor) 10 mg PO 2100 [facility] Haloperidol (Haldol) 0.5 mg PO Q6H PRN PRN Reason: Extreme agitation Haloperidol Lactate (Haldol) 0.5 mg IM Q6H PRN PRN Reason: Extreme agitation Levothyroxine Sodium (Synthroid) 75 mcg PO ACB [facility] Last Admin: 11/18/16 07:34 Dose: 75 mcg Lorazepam (Ativan) 0.5 mg PO Q6H PRN PRN Reason: Extreme agitation Lorazepam (Ativan Inj) 0.5 mg IM Q6H PRN PRN Reason: Extreme agitation Losartan Potassium (Cozaar) 25 mg PO DAILY [facility] Last Admin: 11/18/16 10:21 Dose: 25 mg Nitrofurantoin Macrocrystals (Macrobid) 100 mg PO BIDWM [facility] Stop: 11/22/16 23:59 Last Admin: 11/18/16 17:34 Dose: 100 mg Olanzapine (Zyprexa) 10 mg PO 2100 [facility] Pantoprazole Sodium (Protonix Tab) 40 mg PO ACB [facility] Last Admin: 11/18/16 07:35 Dose: 40 mg Fluticasone/Salmeterol (Advair Hfa) 1 puff INH BID [facility] Last Admin: 11/18/16 09:00 Dose: 1 puff Sucralfate (Carafate) 1 gm PO AC30 [facility] Last Admin: 11/18/16 17:34 Dose: 1 gm Tiotropium [place] (Spiriva) 1 cap ORAL INH DAILY [facility] Last Admin: 11/18/16 18:22 Dose: 1 cap Subjective: Pt seen and chart examined. Nursing reports pt remains some what irritable, tangential and hyperverbal. Pt is redirectable and has not required any PRN's. On face to face the pt states she is doing well. She is sleeping well and has a good appetite. Mood is stable. Remains irritable. Denies S/I or psychosis. Tolerating meds Start Time: 18:00 Stop Time: 18:15 Mental Status Exam Vitals: Last Vital Signs Temp 98.0 F 11/18/16 16:00 Pulse 72 11/18/16 16:00 Resp 16 11/18/16 16:00 BP 132/67 11/18/16 16:00 Pulse Ox 93 11/18/16 16:00 Height: 1.65 m Weight: 61.9 kg - Mental Status Exam Muscle Strength/Tone: Normal Dressing: Casual Grooming: Fair Attitude: Cooperative Motor Activity: Normal Eye Contact: Fair Speech: Pressured Volume: Normal Rhythm: Appropriate Rhythm Orientation: Oriented X4 Mood: Euthymic Rate of Thoughts: Pressured Thought Organization: Tangential Associations: Flight of Ideas Abstract Reasoning: Poor abstract reasoning Thought Content: Normal Perception/Psychotic: Perception Normal Fund of Knowledge: Appropriate Memory: Grossly Intact Suicidal Ideation: None Homicidal Ideation: None Insight: Fair Judgement: Fair Impulse Control: Fair - Laboratory Result Diagrams: 11/17/16 06:49 11/14/16 19:59 Assessment and Plan (1) Bipolar disorder, current episode manic w/o psychotic features, severe Current visit: Yes Status: Acute Hospital Course Summary Disclaimer: The visit summary below is not to be considered part of the above Progress Note. Hospital Course: 11/15/16 hospitalist consult Bipolar disorder/dementia -Agree with admission to [facility]. Adjust meds per psych. Encourage patient to participate in unit activities. Provide safe environment. UTI -Given her abnormal urinalysis, urinary symptoms and leukocytosis, will treat with nitrofurantoin 100 mg twice a day for 7 days. Adjust therapy as needed once culture is resulted. Asthma -Continue Advair and Spiriva for her asthma. If she should require DuoNeb treatment, this can be ordered. Hypertension -Restart Cozaar. Monitor pressures. As she was not taking any other medication other than her thyroid, will add one antihypertensive back at a time. Will add back in amlodipine 5 mg if pressures are not controlled. Hyperlipidemia -Continue atorvastatin GERD -As patient has been off of all of her medicines except for Synthroid, will wait to add back in her Protonix, Carafate and Reglan. If she has no GI complaints, no reason to restart these medications. (Carafate, Protonix, Reglan are on med list from most recent office visit with PCP) Osteoporosis Will hold calcium and vitamin D during hospitalization, but can resume on dismissal Postsurgical hypothyroidism -Continue Synthroid at current dose. Her TSH was slightly low at 0.25, however, given that it sounds like she was taking more than one Synthroid a day, this is expected. She will need repeat TSH in the outpatient setting in approximately 6 weeks. Hospitalist team will plan to follow patient to manage chronic medical problems throughout her stay. At discharge, patient's care will return to Dr.Lei Andrew (or whoever she has decided to see as her PCP at that time) 11/16/16 10:09 Continue current care 11/16/16 15:36 Continue supportive care. Patient remains hyperverbal and manic.- per attending. Continue macrobid for UTI- await cultures- may need to adjust. Ongoing leukocytosis- repeat CBC in AM. Continue Losartan. Restart lower dose Norvasc. Ginny may partially be due to hyperactive thyroid- pt. was overtaking synthroid. Plan to recheck TSH in 4-6 weeks. Recent admission for epigastric pain. Restart PPI/Carafate. 11/17/16 12:47 Increase Zyprexa to 10mg at HS 11/18/16 09:10 Continue supportive care. Continue macrobid for UTI-culture is sensitive to all antibiotics tested, but macrobid was not on the list. As patient is doing better since starting medication, will continue for the full 7 day course. Continue Losartan and Norvasc for HTN Plan to recheck TSH in 4-6 weeks. PPI and Carafate restarted yesterday - patient is doing well. Zyprexa increased to 10mg yesterday - per psych 11/18/16 18:56 Increase Zyprexa to 15mg at HS
[2016-11-18] MEDS: ATORVASTATIN 10 MG TABLET PO SCH (20:00)
[2016-11-18] MEDS ORDERED: OLANZapine 5 MG TABLET PO SCH ×2 (21:00)
[2016-11-19] MEDS: PANTOPRAZOLE 40 MG TABLET PO SCH (07:26)
[2016-11-19] MEDS: LEVOTHYROXINE 75 MCG TABLET PO SCH (07:26)
[2016-11-19] MEDS: SALMETEROL INH SCH ×2 (07:50→20:48)
[2016-11-19] MEDS: FLUTICASONE INH SCH ×2 (07:50→20:48)
[2016-11-19] MEDS: NITROFURANTOIN (MACROBID) 100 MG CAPSULE PO SCH ×2 (08:15→17:27)
[2016-11-19] MEDS: AMLODIPINE 2.5 MG TABLET PO SCH (08:15)
[2016-11-19] MEDS: LOSARTAN 50 MG TABLET PO SCH (08:15)
[2016-11-19] MEDS: SUCRALFATE 1 GM TABLET PO SCH ×3 (08:15→17:27)
--- NOTE | 2016-11-19 16:50 | Neuropsych Progress Note ---
[facility] Subjective Date: 11/19/16 - Sujective/Severity of Illness Medications: Amlodipine Besylate (Norvasc) 2.5 mg PO DAILY [facility] Last Admin: 11/19/16 08:15 Dose: 2.5 mg Artificial Tears (Refresh Classic) 1 drop EACH EYE BID PRN PRN Reason: DRY EYES Atorvastatin Calcium (Lipitor) 10 mg PO 2100 [facility] Last Admin: 11/18/16 20:00 Dose: 10 mg Haloperidol (Haldol) 0.5 mg PO Q6H PRN PRN Reason: Extreme agitation Haloperidol Lactate (Haldol) 0.5 mg IM Q6H PRN PRN Reason: Extreme agitation Levothyroxine Sodium (Synthroid) 75 mcg PO ACB [facility] Last Admin: 11/19/16 07:26 Dose: 75 mcg Lorazepam (Ativan) 0.5 mg PO Q6H PRN PRN Reason: Extreme agitation Lorazepam (Ativan Inj) 0.5 mg IM Q6H PRN PRN Reason: Extreme agitation Losartan Potassium (Cozaar) 25 mg PO DAILY [facility] Last Admin: 11/19/16 08:15 Dose: 25 mg Nitrofurantoin Macrocrystals (Macrobid) 100 mg PO BIDWM [facility] Stop: 11/22/16 23:59 Last Admin: 11/19/16 08:15 Dose: 100 mg Olanzapine (Zyprexa) 20 mg PO 2100 [facility] Pantoprazole Sodium (Protonix Tab) 40 mg PO ACB [facility] Last Admin: 11/19/16 07:26 Dose: 40 mg Fluticasone/Salmeterol (Advair Hfa) 1 puff INH BID [facility] Last Admin: 11/19/16 07:50 Dose: 1 puff Sucralfate (Carafate) 1 gm PO AC30 [facility] Last Admin: 11/19/16 14:15 Dose: 1 gm Tiotropium [place] (Spiriva) 1 cap ORAL INH DAILY [facility] Last Admin: 11/18/16 18:22 Dose: 1 cap Subjective: Pt seen and chart examined. Nursing reports pt remains some what irritable and hyperverbal with pressured speech. She is sleeping fairly well and has a good appetite. No behaviors noted. On face to face the pt is pleasant but pressured and irritable. She reports her mood is stable and she denies any S/I or psychosis. Tolerating meds Start Time: 15:45 Stop Time: 16:00 Mental Status Exam Vitals: Last Vital Signs Temp 96.5 F L 11/19/16 16:00 Pulse 74 11/19/16 16:00 Resp 16 11/19/16 16:00 BP 124/62 11/19/16 16:00 Pulse Ox 96 11/19/16 16:00 Height: 1.65 m Weight: 61.9 kg - Mental Status Exam Muscle Strength/Tone: Normal Dressing: Casual Grooming: Fair Attitude: Cooperative Motor Activity: Normal Eye Contact: Fair Speech: Pressured Volume: Normal Rhythm: Appropriate Rhythm Orientation: Oriented X4 Mood: Euthymic Rate of Thoughts: Pressured Thought Organization: Tangential Associations: Flight of Ideas Abstract Reasoning: Poor abstract reasoning Thought Content: Normal Perception/Psychotic: Perception Normal Fund of Knowledge: Appropriate Memory: Grossly Intact Suicidal Ideation: None Homicidal Ideation: None Insight: Fair Judgement: Fair Impulse Control: Fair - Laboratory Result Diagrams: 11/17/16 06:49 11/14/16 19:59 Assessment and Plan (1) Bipolar disorder, current episode manic w/o psychotic features, severe Current visit: Yes Status: Acute Hospital Course Summary Disclaimer: The visit summary below is not to be considered part of the above Progress Note. Hospital Course: 11/15/16 hospitalist consult Bipolar disorder/dementia -Agree with admission to [facility]. Adjust meds per psych. Encourage patient to participate in unit activities. Provide safe environment. UTI -Given her abnormal urinalysis, urinary symptoms and leukocytosis, will treat with nitrofurantoin 100 mg twice a day for 7 days. Adjust therapy as needed once culture is resulted. Asthma -Continue Advair and Spiriva for her asthma. If she should require DuoNeb treatment, this can be ordered. Hypertension -Restart Cozaar. Monitor pressures. As she was not taking any other medication other than her thyroid, will add one antihypertensive back at a time. Will add back in amlodipine 5 mg if pressures are not controlled. Hyperlipidemia -Continue atorvastatin GERD -As patient has been off of all of her medicines except for Synthroid, will wait to add back in her Protonix, Carafate and Reglan. If she has no GI complaints, no reason to restart these medications. (Carafate, Protonix, Reglan are on med list from most recent office visit with PCP) Osteoporosis Will hold calcium and vitamin D during hospitalization, but can resume on dismissal Postsurgical hypothyroidism -Continue Synthroid at current dose. Her TSH was slightly low at 0.25, however, given that it sounds like she was taking more than one Synthroid a day, this is expected. She will need repeat TSH in the outpatient setting in approximately 6 weeks. Hospitalist team will plan to follow patient to manage chronic medical problems throughout her stay. At discharge, patient's care will return to Dr.Lei Andrew (or whoever she has decided to see as her PCP at that time) 11/16/16 10:09 Continue current care 11/16/16 15:36 Continue supportive care. Patient remains hyperverbal and manic.- per attending. Continue macrobid for UTI- await cultures- may need to adjust. Ongoing leukocytosis- repeat CBC in AM. Continue Losartan. Restart lower dose Norvasc. Ginny may partially be due to hyperactive thyroid- pt. was overtaking synthroid. Plan to recheck TSH in 4-6 weeks. Recent admission for epigastric pain. Restart PPI/Carafate. 11/17/16 12:47 Increase Zyprexa to 10mg at HS 11/18/16 09:10 Continue supportive care. Continue macrobid for UTI-culture is sensitive to all antibiotics tested, but macrobid was not on the list. As patient is doing better since starting medication, will continue for the full 7 day course. Continue Losartan and Norvasc for HTN Plan to recheck TSH in 4-6 weeks. PPI and Carafate restarted yesterday - patient is doing well. Zyprexa increased to 10mg yesterday - per psych 11/18/16 18:56 Increase Zyprexa to 15mg at HS 11/19/16 16:50 Increase Zyprexa to 20mg at HS
--- NOTE | 2016-11-19 18:05 | Progress Note ---
Subjective: Halle seen briefly at her request due to concern about her medications. She indicated that she has previously been on calcium 1500 mg daily and vitamin D and that she's not receiving these medications currently. She was scheduled to begin Prolia in the near future but has decided against it. She has calcium supplements be reinitiated. Otherwise her appetite is good and she denied dyspnea. Objective Vital signs: Temperature 96.5 F L 11/19/16 16:00 Pulse Rate 74 11/19/16 16:00 Respiratory Rate 16 11/19/16 16:00 Blood Pressure 124/62 11/19/16 16:00 Pulse Oximetry 96 11/19/16 16:00 Oxygen Delivery Method Room Air NAD, talkative as usual, pleasant Respirations nonlabored, ambulating without difficulty Height/Weight/BMI: Height 1.65 m Weight 61.9 kg Body Mass Index 22.6 Results - Labs CBC & Chem 7: 11/17/16 06:49 11/14/16 19:59 Microbiology Results: Microbiology 11/15/16 06:41 Urine, Voided (Cc/notcc) Urine Culture - Final Escherichia coli Assessment and Plan Assessment and Plan: Problem list: Acute Ginny-improving Schizophrenia HTN HLD Hypothyroidism UTI Plan: Resume calcium carbonate 500 mg 3 times a day and vitamin D 1000 units daily. Sepsis Assessment - Evaluation Sepsis screening result: No Definite Risk Hospital Course Summary Disclaimer: The visit summary below is not to be considered part of the above Progress Note. Hospital Course: 11/15/16 hospitalist consult Bipolar disorder/dementia -Agree with admission to [facility]. Adjust meds per psych. Encourage patient to participate in unit activities. Provide safe environment. UTI -Given her abnormal urinalysis, urinary symptoms and leukocytosis, will treat with nitrofurantoin 100 mg twice a day for 7 days. Adjust therapy as needed once culture is resulted. Asthma -Continue Advair and Spiriva for her asthma. If she should require DuoNeb treatment, this can be ordered. Hypertension -Restart Cozaar. Monitor pressures. As she was not taking any other medication other than her thyroid, will add one antihypertensive back at a time. Will add back in amlodipine 5 mg if pressures are not controlled. Hyperlipidemia -Continue atorvastatin GERD -As patient has been off of all of her medicines except for Synthroid, will wait to add back in her Protonix, Carafate and Reglan. If she has no GI complaints, no reason to restart these medications. (Carafate, Protonix, Reglan are on med list from most recent office visit with PCP) Osteoporosis Will hold calcium and vitamin D during hospitalization, but can resume on dismissal Postsurgical hypothyroidism -Continue Synthroid at current dose. Her TSH was slightly low at 0.25, however, given that it sounds like she was taking more than one Synthroid a day, this is expected. She will need repeat TSH in the outpatient setting in approximately 6 weeks. Hospitalist team will plan to follow patient to manage chronic medical problems throughout her stay. At discharge, patient's care will return to Dr.Lei Andrew (or whoever she has decided to see as her PCP at that time) 11/16/16 10:09 Continue current care 11/16/16 15:36 Continue supportive care. Patient remains hyperverbal and manic.- per attending. Continue macrobid for UTI- await cultures- may need to adjust. Ongoing leukocytosis- repeat CBC in AM. Continue Losartan. Restart lower dose Norvasc. Ginny may partially be due to hyperactive thyroid- pt. was overtaking synthroid. Plan to recheck TSH in 4-6 weeks. Recent admission for epigastric pain. Restart PPI/Carafate. 11/17/16 12:47 Increase Zyprexa to 10mg at HS 11/18/16 09:10 Continue supportive care. Continue macrobid for UTI-culture is sensitive to all antibiotics tested, but macrobid was not on the list. As patient is doing better since starting medication, will continue for the full 7 day course. Continue Losartan and Norvasc for HTN Plan to recheck TSH in 4-6 weeks. PPI and Carafate restarted yesterday - patient is doing well. Zyprexa increased to 10mg yesterday - per psych 11/18/16 18:56 Increase Zyprexa to 15mg at HS 11/19/16 16:50 Increase Zyprexa to 20mg at HS
[2016-11-19] MEDS: OLANZapine 5 MG TABLET PO SCH (20:35)
[2016-11-19] MEDS: ATORVASTATIN 10 MG TABLET PO SCH (20:36)
[2016-11-19] MEDS: CALCIUM CARBONATE 500 MG TABLET PO SCH (21:48)
[2016-11-20] MEDS: CALCIUM CARBONATE 500 MG TABLET PO SCH ×3 (08:27→20:12)
[2016-11-20] MEDS: LOSARTAN 50 MG TABLET PO SCH (08:27)
[2016-11-20] MEDS: LEVOTHYROXINE 75 MCG TABLET PO SCH (08:28)
[2016-11-20] MEDS: AMLODIPINE 2.5 MG TABLET PO SCH (08:28)
[2016-11-20] MEDS: SUCRALFATE 1 GM TABLET PO SCH ×3 (08:28→16:44)
[2016-11-20] MEDS: NITROFURANTOIN (MACROBID) 100 MG CAPSULE PO SCH ×2 (08:28→17:32)
[2016-11-20] MEDS: PANTOPRAZOLE 40 MG TABLET PO SCH (08:31)
[2016-11-20] MEDS: SALMETEROL INH SCH ×2 (09:05→19:44)
[2016-11-20] MEDS: FLUTICASONE INH SCH ×2 (09:05→19:44)
[2016-11-20] MEDS: TIOTROPIUM 18mcg/cap HANDIHALER ORAL INH SCH (10:14)
--- NOTE | 2016-11-20 18:12 | Neuropsych Progress Note ---
[facility] Subjective Date: 11/20/16 - Sujective/Severity of Illness Medications: Amlodipine Besylate (Norvasc) 2.5 mg PO DAILY [facility] Last Admin: 11/20/16 08:28 Dose: 2.5 mg Artificial Tears (Refresh Classic) 1 drop EACH EYE BID PRN PRN Reason: DRY EYES Atorvastatin Calcium (Lipitor) 10 mg PO 2100 [facility] Last Admin: 11/19/16 20:36 Dose: 10 mg Calcium Carbonate (Calcium) 500 mg PO 0900,1200,2100 [facility] Cholecalciferol (Vit. D-3) 1,000 unit PO DAILY [facility] Last Admin: 11/20/16 08:27 Dose: 1,000 unit Haloperidol (Haldol) 0.5 mg PO Q6H PRN PRN Reason: Extreme agitation Haloperidol Lactate (Haldol) 0.5 mg IM Q6H PRN PRN Reason: Extreme agitation Levothyroxine Sodium (Synthroid) 75 mcg PO ACB [facility] Last Admin: 11/20/16 08:28 Dose: 75 mcg Lorazepam (Ativan) 0.5 mg PO Q6H PRN PRN Reason: Extreme agitation Lorazepam (Ativan Inj) 0.5 mg IM Q6H PRN PRN Reason: Extreme agitation Losartan Potassium (Cozaar) 25 mg PO DAILY [facility] Last Admin: 11/20/16 08:27 Dose: 25 mg Nitrofurantoin Macrocrystals (Macrobid) 100 mg PO BIDWM [facility] Stop: 11/22/16 23:59 Last Admin: 11/20/16 17:32 Dose: 100 mg Olanzapine (Zyprexa) 20 mg PO 2100 [facility] Last Admin: 11/19/16 20:35 Dose: 20 mg Pantoprazole Sodium (Protonix Tab) 40 mg PO ACB [facility] Last Admin: 11/20/16 08:31 Dose: 40 mg Fluticasone/Salmeterol (Advair Hfa) 1 puff INH BID [facility] Last Admin: 11/20/16 09:05 Dose: 1 puff Sucralfate (Carafate) 1 gm PO AC30 [facility] Last Admin: 11/20/16 16:44 Dose: 1 gm Tiotropium [place] (Spiriva) 1 cap ORAL INH DAILY [facility] Last Admin: 11/20/16 10:14 Dose: 1 cap Subjective: Pt seen and chart examined. Nursing reports pt is doing a little better. Speech is less pressured. Remains some what labile and irritable at times but is improving. Sleeping and eating well. On face to face the pt states she is doing well. Her speech is much less pressured and tangential. Denies S/I or psychosis. Tolerating meds Start Time: 17:15 Stop Time: 17:30 Mental Status Exam Vitals: Last Vital Signs Temp 98.8 F 11/20/16 16:00 Pulse 77 11/20/16 16:00 Resp 16 11/20/16 16:00 BP 120/73 11/20/16 16:00 Pulse Ox 95 11/20/16 16:00 Height: 1.65 m Weight: 61.9 kg - Mental Status Exam Muscle Strength/Tone: Normal Dressing: Casual Grooming: Fair Attitude: Cooperative Motor Activity: Normal Eye Contact: Fair Speech: Pressured Volume: Normal Rhythm: Appropriate Rhythm Orientation: Oriented X4 Mood: Euthymic Rate of Thoughts: Pressured Thought Organization: Tangential Associations: Flight of Ideas Abstract Reasoning: Poor abstract reasoning Thought Content: Normal Perception/Psychotic: Perception Normal Fund of Knowledge: Appropriate Memory: Grossly Intact Suicidal Ideation: None Homicidal Ideation: None Insight: Fair Judgement: Fair Impulse Control: Fair - Laboratory Result Diagrams: 11/17/16 06:49 11/14/16 19:59 Assessment and Plan (1) Bipolar disorder, current episode manic w/o psychotic features, severe Current visit: Yes Status: Acute Hospital Course Summary Disclaimer: The visit summary below is not to be considered part of the above Progress Note. Hospital Course: 11/15/16 hospitalist consult Bipolar disorder/dementia -Agree with admission to [facility]. Adjust meds per psych. Encourage patient to participate in unit activities. Provide safe environment. UTI -Given her abnormal urinalysis, urinary symptoms and leukocytosis, will treat with nitrofurantoin 100 mg twice a day for 7 days. Adjust therapy as needed once culture is resulted. Asthma -Continue Advair and Spiriva for her asthma. If she should require DuoNeb treatment, this can be ordered. Hypertension -Restart Cozaar. Monitor pressures. As she was not taking any other medication other than her thyroid, will add one antihypertensive back at a time. Will add back in amlodipine 5 mg if pressures are not controlled. Hyperlipidemia -Continue atorvastatin GERD -As patient has been off of all of her medicines except for Synthroid, will wait to add back in her Protonix, Carafate and Reglan. If she has no GI complaints, no reason to restart these medications. (Carafate, Protonix, Reglan are on med list from most recent office visit with PCP) Osteoporosis Will hold calcium and vitamin D during hospitalization, but can resume on dismissal Postsurgical hypothyroidism -Continue Synthroid at current dose. Her TSH was slightly low at 0.25, however, given that it sounds like she was taking more than one Synthroid a day, this is expected. She will need repeat TSH in the outpatient setting in approximately 6 weeks. Hospitalist team will plan to follow patient to manage chronic medical problems throughout her stay. At discharge, patient's care will return to Dr.Lei Andrew (or whoever she has decided to see as her PCP at that time) 11/16/16 10:09 Continue current care 11/16/16 15:36 Continue supportive care. Patient remains hyperverbal and manic.- per attending. Continue macrobid for UTI- await cultures- may need to adjust. Ongoing leukocytosis- repeat CBC in AM. Continue Losartan. Restart lower dose Norvasc. Ginny may partially be due to hyperactive thyroid- pt. was overtaking synthroid. Plan to recheck TSH in 4-6 weeks. Recent admission for epigastric pain. Restart PPI/Carafate. 11/17/16 12:47 Increase Zyprexa to 10mg at HS 11/18/16 09:10 Continue supportive care. Continue macrobid for UTI-culture is sensitive to all antibiotics tested, but macrobid was not on the list. As patient is doing better since starting medication, will continue for the full 7 day course. Continue Losartan and Norvasc for HTN Plan to recheck TSH in 4-6 weeks. PPI and Carafate restarted yesterday - patient is doing well. Zyprexa increased to 10mg yesterday - per psych 11/18/16 18:56 Increase Zyprexa to 15mg at HS 11/19/16 16:50 Increase Zyprexa to 20mg at HS 11/20/16 18:11 Pt's speech remains slightly pressured and tangential but it is improving. Will continue current meds
[2016-11-20] MEDS: OLANZapine 5 MG TABLET PO SCH (20:12)
[2016-11-20] MEDS: ATORVASTATIN 10 MG TABLET PO SCH (20:12)
[2016-11-21] MEDS: PANTOPRAZOLE 40 MG TABLET PO SCH (07:00)
[2016-11-21] MEDS: LEVOTHYROXINE 75 MCG TABLET PO SCH (07:00)
[2016-11-21] MEDS: FLUTICASONE INH SCH ×2 (08:30→21:30)
[2016-11-21] MEDS: SALMETEROL INH SCH ×2 (08:30→21:30)
[2016-11-21] MEDS: SUCRALFATE 1 GM TABLET PO SCH ×3 (08:31→17:21)
[2016-11-21] MEDS: CALCIUM CARBONATE 500 MG TABLET PO SCH ×3 (08:31→21:02)
[2016-11-21] MEDS: NITROFURANTOIN (MACROBID) 100 MG CAPSULE PO SCH ×2 (08:31→17:21)
[2016-11-21] MEDS: LOSARTAN 50 MG TABLET PO SCH (08:32)
[2016-11-21] MEDS: AMLODIPINE 2.5 MG TABLET PO SCH (08:32)
[2016-11-21] MEDS: TIOTROPIUM 18mcg/cap HANDIHALER ORAL INH SCH ×3 (09:52→09:55)
--- NOTE | 2016-11-21 19:11 | Neuropsych Progress Note ---
[facility] Subjective Date: 11/21/16 - Sujective/Severity of Illness Medications: Amlodipine Besylate (Norvasc) 2.5 mg PO DAILY [facility] Last Admin: 11/21/16 08:32 Dose: 2.5 mg Artificial Tears (Refresh Classic) 1 drop EACH EYE BID PRN PRN Reason: DRY EYES Atorvastatin Calcium (Lipitor) 10 mg PO 2100 [facility] Last Admin: 11/20/16 20:12 Dose: 10 mg Calcium Carbonate (Calcium) 500 mg PO 0900,1200,2100 [facility] Last Admin: 11/21/16 12:48 Dose: 500 mg Cholecalciferol (Vit. D-3) 1,000 unit PO DAILY [facility] Last Admin: 11/21/16 08:32 Dose: 1,000 unit Haloperidol (Haldol) 0.5 mg PO Q6H PRN PRN Reason: Extreme agitation Haloperidol Lactate (Haldol) 0.5 mg IM Q6H PRN PRN Reason: Extreme agitation Levothyroxine Sodium (Synthroid) 75 mcg PO ACB [facility] Last Admin: 11/21/16 07:00 Dose: 75 mcg Lorazepam (Ativan) 0.5 mg PO Q6H PRN PRN Reason: Extreme agitation Lorazepam (Ativan Inj) 0.5 mg IM Q6H PRN PRN Reason: Extreme agitation Losartan Potassium (Cozaar) 25 mg PO DAILY [facility] Last Admin: 11/21/16 08:32 Dose: 25 mg Nitrofurantoin Macrocrystals (Macrobid) 100 mg PO BIDWM [facility] Stop: 11/22/16 23:59 Last Admin: 11/21/16 17:21 Dose: 100 mg Olanzapine (Zyprexa) 20 mg PO 2100 [facility] Last Admin: 11/20/16 20:12 Dose: 20 mg Pantoprazole Sodium (Protonix Tab) 40 mg PO ACB [facility] Last Admin: 11/21/16 07:00 Dose: 40 mg Fluticasone/Salmeterol (Advair Hfa) 1 puff INH BID [facility] Last Admin: 11/21/16 08:30 Dose: 1 puff Sucralfate (Carafate) 1 gm PO AC30 [facility] Last Admin: 11/21/16 17:21 Dose: 1 gm Tiotropium [place] (Spiriva) 1 cap ORAL INH DAILY [facility] Last Admin: 11/21/16 09:55 Dose: 1 cap Subjective: Pt seen and chart examined. Nursing reports pt is doing a little better. Speech is less pressured. Remains some what labile and irritable at times but is improving. Sleeping and eating well. On face to face the pt states she is doing well. She becomes tearful and irritable when told she will be staying through the weekend. She denies any S/I or psychosis. Tolerating meds Start Time: 18:15 Stop Time: 18:30 Mental Status Exam Vitals: Last Vital Signs Temp 97.6 F 11/21/16 16:43 Pulse 76 11/21/16 16:43 Resp 18 11/21/16 16:43 BP 129/70 11/21/16 16:43 Pulse Ox 97 11/21/16 16:43 Height: 1.65 m Weight: 61.9 kg - Mental Status Exam Muscle Strength/Tone: Normal Dressing: Casual Grooming: Fair Attitude: Cooperative Motor Activity: Normal Eye Contact: Fair Speech: Pressured Volume: Normal Rhythm: Appropriate Rhythm Orientation: Oriented X4 Mood: Euthymic Rate of Thoughts: Pressured Thought Organization: Tangential Associations: Flight of Ideas Abstract Reasoning: Poor abstract reasoning Thought Content: Normal Perception/Psychotic: Perception Normal Fund of Knowledge: Appropriate Memory: Grossly Intact Suicidal Ideation: None Homicidal Ideation: None Insight: Fair Judgement: Fair Impulse Control: Fair - Laboratory Result Diagrams: 11/17/16 06:49 11/14/16 19:59 Assessment and Plan (1) Bipolar disorder, current episode manic w/o psychotic features, severe Current visit: Yes Status: Acute Hospital Course Summary Disclaimer: The visit summary below is not to be considered part of the above Progress Note. Hospital Course: 11/15/16 hospitalist consult Bipolar disorder/dementia -Agree with admission to [facility]. Adjust meds per psych. Encourage patient to participate in unit activities. Provide safe environment. UTI -Given her abnormal urinalysis, urinary symptoms and leukocytosis, will treat with nitrofurantoin 100 mg twice a day for 7 days. Adjust therapy as needed once culture is resulted. Asthma -Continue Advair and Spiriva for her asthma. If she should require DuoNeb treatment, this can be ordered. Hypertension -Restart Cozaar. Monitor pressures. As she was not taking any other medication other than her thyroid, will add one antihypertensive back at a time. Will add back in amlodipine 5 mg if pressures are not controlled. Hyperlipidemia -Continue atorvastatin GERD -As patient has been off of all of her medicines except for Synthroid, will wait to add back in her Protonix, Carafate and Reglan. If she has no GI complaints, no reason to restart these medications. (Carafate, Protonix, Reglan are on med list from most recent office visit with PCP) Osteoporosis Will hold calcium and vitamin D during hospitalization, but can resume on dismissal Postsurgical hypothyroidism -Continue Synthroid at current dose. Her TSH was slightly low at 0.25, however, given that it sounds like she was taking more than one Synthroid a day, this is expected. She will need repeat TSH in the outpatient setting in approximately 6 weeks. Hospitalist team will plan to follow patient to manage chronic medical problems throughout her stay. At discharge, patient's care will return to Dr.Lei Andrew (or whoever she has decided to see as her PCP at that time) 11/16/16 10:09 Continue current care 11/16/16 15:36 Continue supportive care. Patient remains hyperverbal and manic.- per attending. Continue macrobid for UTI- await cultures- may need to adjust. Ongoing leukocytosis- repeat CBC in AM. Continue Losartan. Restart lower dose Norvasc. Ginny may partially be due to hyperactive thyroid- pt. was overtaking synthroid. Plan to recheck TSH in 4-6 weeks. Recent admission for epigastric pain. Restart PPI/Carafate. 11/17/16 12:47 Increase Zyprexa to 10mg at HS 11/18/16 09:10 Continue supportive care. Continue macrobid for UTI-culture is sensitive to all antibiotics tested, but macrobid was not on the list. As patient is doing better since starting medication, will continue for the full 7 day course. Continue Losartan and Norvasc for HTN Plan to recheck TSH in 4-6 weeks. PPI and Carafate restarted yesterday - patient is doing well. Zyprexa increased to 10mg yesterday - per psych 11/18/16 18:56 Increase Zyprexa to 15mg at HS 11/19/16 16:50 Increase Zyprexa to 20mg at HS 11/20/16 18:11 Pt's speech remains slightly pressured and tangential but it is improving. Will continue current meds 11/21/16 19:10 DIANDRA and MANDO on Friday to determine placement options
[2016-11-21] MEDS: ATORVASTATIN 10 MG TABLET PO SCH (21:02)
[2016-11-21] MEDS: OLANZapine 5 MG TABLET PO SCH (21:02)
[2016-11-22] MEDS: PANTOPRAZOLE 40 MG TABLET PO SCH (06:18)
[2016-11-22] MEDS: LEVOTHYROXINE 75 MCG TABLET PO SCH (06:18)
[2016-11-22] MEDS: SALMETEROL INH SCH ×2 (07:13→19:45)
[2016-11-22] MEDS: FLUTICASONE INH SCH ×2 (07:13→19:45)
[2016-11-22] MEDS: NITROFURANTOIN (MACROBID) 100 MG CAPSULE PO SCH ×2 (08:13→17:26)
[2016-11-22] MEDS: CALCIUM CARBONATE 500 MG TABLET PO SCH ×3 (08:13→20:25)
[2016-11-22] MEDS: LOSARTAN 50 MG TABLET PO SCH (08:13)
[2016-11-22] MEDS: SUCRALFATE 1 GM TABLET PO SCH ×3 (08:13→17:26)
[2016-11-22] MEDS: AMLODIPINE 2.5 MG TABLET PO SCH (08:14)
[2016-11-22] MEDS: TIOTROPIUM 18mcg/cap HANDIHALER ORAL INH SCH (09:11)
--- NOTE | 2016-11-22 11:19 | Progress Note ---
<MarsRowan Martines - Last Filed: 11/22/16 11:31> Subjective: Yennifer is seen today in follow up for her acute estiven and schizoaffective disorder as well as her recent UTI. She is seen in the day room, resting in a recliner. She denies any complaints including no fevers, chills, chest pain, shortness of breath, abdominal pain, nausea, vomiting or dysuria. Overall, she states that she is feeling good and states she slept well last night. She does express a strong desire to be discharged home. Review of nursing notes indicate that overall she has been doing better and is not as hyperverbal. She is cooperative with cares but continues to be liable. Her appetite is stable and her bowels are moving. She remains on Macrobid for her recent UTI, which is to be completed today. On exam, she is alert and orientated x 3 and appears comfortable. Cardiac exam reveals regular rate and rhythm and lungs are clear to auscultation. Abdomen is soft, nontender with active bowel sounds. Trace edema noted to bilateral lower extremities and N/V intact. No recent labs. Vital signs are stable. Objective Vital signs: Temperature 97.8 F 11/22/16 08:00 Pulse Rate 89 11/22/16 08:00 Respiratory Rate 16 11/22/16 09:12 Blood Pressure 127/66 11/22/16 08:00 Pulse Oximetry 91 11/22/16 08:00 Oxygen Delivery Method Room Air Height/Weight/BMI: Height 5 ft 5 in Weight 136 lb 14.513 oz Body Mass Index 22.6 - Constitutional Present: no acute distress, well nourished, well developed, cooperative - Routine HEENT Exam Head: Present: normocephalic, atraumatic Eye: Present: PERRL. Absent: conjunctival icterus, scleral injection ENT: Present: mucous membranes moist - Routine Respiratory Exam Present: CTA bilaterally. Absent: stridor, wheezes, crackles - Routine Cardiovascular Exam Present: RRR, S1, S2 - Routine Abdominal Exam Present: soft, normoactive bowel sounds, non tender - Routine Extremities Exam Present: edema (trace), pulses intact. Absent: cyanosis - Routine Back/Spine/Pelvis Exam Back/Spine: Present: full ROM - Routine Musculoskeletal Exam Musculoskeletal: Present: no clubbing or cyanosis, moving extremities well - Routine Skin Exam Present: intact, dry, warm. Absent: jaundice Comments: afebrile - Routine Neurological Exam Present: alert, moving all extremities, normal speech. Absent: facial asymmetry - Routine Lymphatic Exam Lymphatic: Absent: lymphedema - Routine Psychiatric Exam Present: cooperative Results - Labs CBC & Chem 7: 11/17/16 06:49 11/14/16 19:59 Microbiology Results: Microbiology 11/15/16 06:41 Urine, Voided (Cc/notcc) Urine Culture - Final Escherichia coli Assessment and Plan GI Prophylaxis: Protonix, other (Carafate) Resuscitation Status: Do Not Resuscitate Assessment and Plan: 11/22-Mirakian. UTI, acute. * UA culture and sensitivities revealed pansensitive E.coli and Klebsiella pneumoniae. Patient remains on Macrobid to be completed today, 11/22. Continue to monitor for recurrent symptoms. Patient remains afebrile and denies dysuria. Repeat CBC in AM to monitor recent leukocytosis and blood counts. Schizoaffective disorder with acute estiven, improving. * Patient appears to be improving. Continue care per psychiatric team. Zyprexa was increased to 20mg QHS with improved behaviors. Continue to provide safe and supportive environment. Encourage participation in floor actives. CM working on placement and anticipate discharge in near future. Hypertension, chronic. * Blood pressure well controlled. Continue home losartan and Norvasc and monitor closely. Hyperlipidemia, chronic. * Continue home Lipitor and follow as outpatient with PCP. Hypothyroidism, chronic, with acute hyperthyroidism. * TSH on admission was low at 0.25. Patient reportedly on Synthroid 75 mcg. Will recheck TSH with free T4 for further evaluation. May need to decrease Synthroid dose if TSH remains low. Consider consult to Dr. Julian. GERD, chronic. * Continue Protonix and Carafate for GI protection and GERD. Anemia, chronic. * Hemoglobin 10.6 on admission. Will continue to monitor periodically throughout admission. Recheck CBC in AM to monitor blood counts. - Time spent with patient 25 - 35 minutes Sepsis Assessment - Evaluation Sepsis screening result: No Definite Risk Hospital Course Summary Disclaimer: The visit summary below is not to be considered part of the above Progress Note. Hospital Course: 11/15/16 hospitalist consult Bipolar disorder/dementia -Agree with admission to [facility]. Adjust meds per psych. Encourage patient to participate in unit activities. Provide safe environment. UTI -Given her abnormal urinalysis, urinary symptoms and leukocytosis, will treat with nitrofurantoin 100 mg twice a day for 7 days. Adjust therapy as needed once culture is resulted. Asthma -Continue Advair and Spiriva for her asthma. If she should require DuoNeb treatment, this can be ordered. Hypertension -Restart Cozaar. Monitor pressures. As she was not taking any other medication other than her thyroid, will add one antihypertensive back at a time. Will add back in amlodipine 5 mg if pressures are not controlled. Hyperlipidemia -Continue atorvastatin GERD -As patient has been off of all of her medicines except for Synthroid, will wait to add back in her Protonix, Carafate and Reglan. If she has no GI complaints, no reason to restart these medications. (Carafate, Protonix, Reglan are on med list from most recent office visit with PCP) Osteoporosis Will hold calcium and vitamin D during hospitalization, but can resume on dismissal Postsurgical hypothyroidism -Continue Synthroid at current dose. Her TSH was slightly low at 0.25, however, given that it sounds like she was taking more than one Synthroid a day, this is expected. She will need repeat TSH in the outpatient setting in approximately 6 weeks. Hospitalist team will plan to follow patient to manage chronic medical problems throughout her stay. At discharge, patient's care will return to Dr.Lei Andrew (or whoever she has decided to see as her PCP at that time) 11/16/16 10:09 Continue current care 11/16/16 15:36 Continue supportive care. Patient remains hyperverbal and manic.- per attending. Continue macrobid for UTI- await cultures- may need to adjust. Ongoing leukocytosis- repeat CBC in AM. Continue Losartan. Restart lower dose Norvasc. Estiven may partially be due to hyperactive thyroid- pt. was overtaking synthroid. Plan to recheck TSH in 4-6 weeks. Recent admission for epigastric pain. Restart PPI/Carafate. 11/17/16 12:47 Increase Zyprexa to 10mg at HS 11/18/16 09:10 Continue supportive care. Continue macrobid for UTI-culture is sensitive to all antibiotics tested, but macrobid was not on the list. As patient is doing better since starting medication, will continue for the full 7 day course. Continue Losartan and Norvasc for HTN Plan to recheck TSH in 4-6 weeks. PPI and Carafate restarted yesterday - patient is doing well. Zyprexa increased to 10mg yesterday - per psych 11/18/16 18:56 Increase Zyprexa to 15mg at HS 11/19/16 16:50 Increase Zyprexa to 20mg at HS 11/20/16 18:11 Pt's speech remains slightly pressured and tangential but it is improving. Will continue current meds 11/21/16 19:10 DIANDRA and RIPA on Friday to determine placement options 11/22/16 11:31 UTI, acute. * UA culture and sensitivities revealed pansensitive E.coli and Klebsiella pneumoniae. Patient remains on Macrobid to be completed today, 11/22. Continue to monitor for recurrent symptoms. Patient remains afebrile and denies dysuria. Repeat CBC in AM to monitor recent leukocytosis and blood counts. Schizoaffective disorder with acute estiven, improving. * Patient appears to be improving. Continue care per psychiatric team. Zyprexa was increased to 20mg QHS with improved behaviors. Continue to provide safe and supportive environment. Encourage participation in floor actives. CM working on placement and anticipate discharge in near future. Hypertension, chronic. * Blood pressure well controlled. Continue home losartan and Norvasc and monitor closely. Hyperlipidemia, chronic. * Continue home Lipitor and follow as outpatient with PCP. Hypothyroidism, chronic, with acute hyperthyroidism. * TSH on admission was low at 0.25. Patient reportedly on Synthroid 75 mcg. Will recheck TSH with free T4 for further evaluation. May need to decrease Synthroid dose if TSH remains low. Consider consult to Dr. Julian. GERD, chronic. * Continue Protonix and Carafate for GI protection and GERD. Anemia, chronic. * Hemoglobin 10.6 on admission. Will continue to monitor periodically throughout admission. Recheck CBC in AM to monitor blood counts. <Nancy Rubi - Last Filed: 11/22/16 17:46> Objective Vital signs: Temperature 98.3 F 11/22/16 16:00 Pulse Rate 75 11/22/16 16:00 Respiratory Rate 16 11/22/16 16:00 Blood Pressure 96/63 11/22/16 16:00 Pulse Oximetry 96 11/22/16 16:00 Oxygen Delivery Method Room Air Height/Weight/BMI: Height 1.65 m Weight 62.1 kg Body Mass Index 22.6 Results - Labs CBC & Chem 7: 11/17/16 06:49 11/14/16 19:59 Microbiology Results: Microbiology 11/15/16 06:41 Urine, Voided (Cc/notcc) Urine Culture - Final Escherichia coli Assessment and Plan Assessment and Plan: 11/22/2016-I reviewed this chart, the patient history, and the [employer]'s/PA's documented findings as above. We discussed and formulated the assessment and plan as above with the additions below.-Dr. Rubi Patient states that she is feeling well today. 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 She denies any shortness of breath. She states she is eating and drinking well. She has no complaints. Code auscultation. Cardiovascular reveals a regular rate and rhythm. Abdomen is soft and nontender. Extremities are free of edema. Continue with current treatments. Hospital Course Summary Disclaimer: The visit summary below is not to be considered part of the above Progress Note.
--- NOTE | 2016-11-22 17:34 | Neuropsych Progress Note ---
[facility] Subjective Date: 11/22/16 - Sujective/Severity of Illness Medications: Amlodipine Besylate (Norvasc) 2.5 mg PO DAILY [facility] Last Admin: 11/22/16 08:14 Dose: 2.5 mg Artificial Tears (Refresh Classic) 1 drop EACH EYE BID PRN PRN Reason: DRY EYES Atorvastatin Calcium (Lipitor) 10 mg PO 2100 [facility] Last Admin: 11/21/16 21:02 Dose: 10 mg Calcium Carbonate (Calcium) 500 mg PO 0900,1200,2100 [facility] Last Admin: 11/22/16 12:18 Dose: 500 mg Cholecalciferol (Vit. D-3) 1,000 unit PO DAILY [facility] Last Admin: 11/22/16 08:14 Dose: 1,000 unit Haloperidol (Haldol) 0.5 mg PO Q6H PRN PRN Reason: Extreme agitation Haloperidol Lactate (Haldol) 0.5 mg IM Q6H PRN PRN Reason: Extreme agitation Levothyroxine Sodium (Synthroid) 75 mcg PO ACB [facility] Last Admin: 11/22/16 06:18 Dose: 75 mcg Lorazepam (Ativan) 0.5 mg PO Q6H PRN PRN Reason: Extreme agitation Lorazepam (Ativan Inj) 0.5 mg IM Q6H PRN PRN Reason: Extreme agitation Losartan Potassium (Cozaar) 25 mg PO DAILY [facility] Last Admin: 11/22/16 08:13 Dose: 25 mg Nitrofurantoin Macrocrystals (Macrobid) 100 mg PO BIDWM [facility] Stop: 11/22/16 23:59 Last Admin: 11/22/16 17:26 Dose: 100 mg Olanzapine (Zyprexa) 20 mg PO 2100 [facility] Pantoprazole Sodium (Protonix Tab) 40 mg PO ACB [facility] Last Admin: 11/22/16 06:18 Dose: 40 mg Fluticasone/Salmeterol (Advair Hfa) 1 puff INH BID [facility] Last Admin: 11/22/16 07:13 Dose: 1 puff Sucralfate (Carafate) 1 gm PO AC30 [facility] Last Admin: 11/22/16 17:26 Dose: 1 gm Tiotropium Arthur (Spiriva) 1 cap ORAL INH DAILY [facility] Last Admin: 11/22/16 09:11 Dose: 1 cap Subjective: Pt seen and chart examined. Nursing reports pt continues to improve. Continues to be labile and irritable at times but improving. Speech is more linear. Sleeping and eating well. On face to face the pt states she is doing well. She reports her mood is stable. Denies any S/I or psychosis. Tolerating meds. Start Time: 16:45 Stop Time: 17:00 Mental Status Exam Vitals: Last Vital Signs Temp 98.3 F 11/22/16 16:00 Pulse 75 11/22/16 16:00 Resp 16 11/22/16 16:00 BP 96/63 11/22/16 16:00 Pulse Ox 96 11/22/16 16:00 Height: 1.65 m Weight: 62.1 kg - Mental Status Exam Muscle Strength/Tone: Normal Dressing: Casual Grooming: Fair Attitude: Cooperative Motor Activity: Normal Eye Contact: Fair Speech: Pressured Volume: Normal Rhythm: Appropriate Rhythm Orientation: Oriented X4 Mood: Euthymic Rate of Thoughts: Pressured Thought Organization: Tangential Associations: Flight of Ideas Abstract Reasoning: Poor abstract reasoning Thought Content: Normal Perception/Psychotic: Perception Normal Fund of Knowledge: Appropriate Memory: Grossly Intact Suicidal Ideation: None Homicidal Ideation: None Insight: Fair Judgement: Fair Impulse Control: Fair - Laboratory Result Diagrams: 11/17/16 06:49 11/14/16 19:59 Assessment and Plan (1) Bipolar disorder, current episode manic w/o psychotic features, severe Current visit: Yes Status: Acute Hospital Course Summary Disclaimer: The visit summary below is not to be considered part of the above Progress Note. Hospital Course: 11/15/16 hospitalist consult Bipolar disorder/dementia -Agree with admission to [facility]. Adjust meds per psych. Encourage patient to participate in unit activities. Provide safe environment. UTI -Given her abnormal urinalysis, urinary symptoms and leukocytosis, will treat with nitrofurantoin 100 mg twice a day for 7 days. Adjust therapy as needed once culture is resulted. Asthma -Continue Advair and Spiriva for her asthma. If she should require DuoNeb treatment, this can be ordered. Hypertension -Restart Cozaar. Monitor pressures. As she was not taking any other medication other than her thyroid, will add one antihypertensive back at a time. Will add back in amlodipine 5 mg if pressures are not controlled. Hyperlipidemia -Continue atorvastatin GERD -As patient has been off of all of her medicines except for Synthroid, will wait to add back in her Protonix, Carafate and Reglan. If she has no GI complaints, no reason to restart these medications. (Carafate, Protonix, Reglan are on med list from most recent office visit with PCP) Osteoporosis Will hold calcium and vitamin D during hospitalization, but can resume on dismissal Postsurgical hypothyroidism -Continue Synthroid at current dose. Her TSH was slightly low at 0.25, however, given that it sounds like she was taking more than one Synthroid a day, this is expected. She will need repeat TSH in the outpatient setting in approximately 6 weeks. Hospitalist team will plan to follow patient to manage chronic medical problems throughout her stay. At discharge, patient's care will return to Dr.Lei Andrew (or whoever she has decided to see as her PCP at that time) 11/16/16 10:09 Continue current care 11/16/16 15:36 Continue supportive care. Patient remains hyperverbal and manic.- per attending. Continue macrobid for UTI- await cultures- may need to adjust. Ongoing leukocytosis- repeat CBC in AM. Continue Losartan. Restart lower dose Norvasc. Ginny may partially be due to hyperactive thyroid- pt. was overtaking synthroid. Plan to recheck TSH in 4-6 weeks. Recent admission for epigastric pain. Restart PPI/Carafate. 11/17/16 12:47 Increase Zyprexa to 10mg at HS 11/18/16 09:10 Continue supportive care. Continue macrobid for UTI-culture is sensitive to all antibiotics tested, but macrobid was not on the list. As patient is doing better since starting medication, will continue for the full 7 day course. Continue Losartan and Norvasc for HTN Plan to recheck TSH in 4-6 weeks. PPI and Carafate restarted yesterday - patient is doing well. Zyprexa increased to 10mg yesterday - per psych 11/18/16 18:56 Increase Zyprexa to 15mg at HS 11/19/16 16:50 Increase Zyprexa to 20mg at HS 11/20/16 18:11 Pt's speech remains slightly pressured and tangential but it is improving. Will continue current meds 11/21/16 19:10 DIANDRA and RIPA on Friday to determine placement options 11/22/16 11:31 UTI, acute. * UA culture and sensitivities revealed pansensitive E.coli and Klebsiella pneumoniae. Patient remains on Macrobid to be completed today, 11/22. Continue to monitor for recurrent symptoms. Patient remains afebrile and denies dysuria. Repeat CBC in AM to monitor recent leukocytosis and blood counts. Schizoaffective disorder with acute ginny, improving. * Patient appears to be improving. Continue care per psychiatric team. Zyprexa was increased to 20mg QHS with improved behaviors. Continue to provide safe and supportive environment. Encourage participation in floor actives. CM working on placement and anticipate discharge in near future. Hypertension, chronic. * Blood pressure well controlled. Continue home losartan and Norvasc and monitor closely. Hyperlipidemia, chronic. * Continue home Lipitor and follow as outpatient with PCP. Hypothyroidism, chronic, with acute hyperthyroidism. * TSH on admission was low at 0.25. Patient reportedly on Synthroid 75 mcg. Will recheck TSH with free T4 for further evaluation. May need to decrease Synthroid dose if TSH remains low. Consider consult to Dr. Julian. GERD, chronic. * Continue Protonix and Carafate for GI protection and GERD. Anemia, chronic. * Hemoglobin 10.6 on admission. Will continue to monitor periodically throughout admission. Recheck CBC in AM to monitor blood counts. 11/22/16 17:33 Pt remains irritable and labile but improving. Continue current care
[2016-11-22] MEDS: OLANZapine 10 MG TABLET PO SCH (20:25)
[2016-11-22] MEDS: ATORVASTATIN 10 MG TABLET PO SCH (20:25)
[2016-11-23] MEDS: LEVOTHYROXINE 75 MCG TABLET PO SCH (05:38)
[2016-11-23] MEDS: PANTOPRAZOLE 40 MG TABLET PO SCH (05:39)
[2016-11-23] MEDS: TIOTROPIUM 18mcg/cap HANDIHALER ORAL INH SCH (07:54)
[2016-11-23] MEDS: SUCRALFATE 1 GM TABLET PO SCH ×3 (09:16→17:18)
[2016-11-23] MEDS: LOSARTAN 50 MG TABLET PO SCH (09:16)
[2016-11-23] MEDS: CALCIUM CARBONATE 500 MG TABLET PO SCH ×3 (09:16→20:32)
[2016-11-23] MEDS: AMLODIPINE 2.5 MG TABLET PO SCH (09:17)
[2016-11-23] MEDS: SALMETEROL INH SCH ×3 (09:50→20:28)
[2016-11-23] MEDS: FLUTICASONE INH SCH ×3 (09:50→20:28)
--- NOTE | 2016-11-23 13:44 | Neuropsych Progress Note ---
[facility] Subjective Date: 11/23/16 - Sujective/Severity of Illness Medications: Amlodipine Besylate (Norvasc) 2.5 mg PO DAILY ON LICENSE OF [facility] Last Admin: 11/23/16 09:17 Dose: 2.5 mg Artificial Tears (Refresh Classic) 1 drop EACH EYE BID PRN PRN Reason: DRY EYES Atorvastatin Calcium (Lipitor) 10 mg PO 2100 ON LICENSE OF [facility] Last Admin: 11/22/16 20:25 Dose: 10 mg Calcium Carbonate (Calcium) 500 mg PO 0900,1200,2100 ON [facility] OF [facility] Last Admin: 11/23/16 11:57 Dose: 500 mg Cholecalciferol (Vit. D-3) 1,000 unit PO DAILY ON [facility] OF [facility] Last Admin: 11/23/16 09:17 Dose: 1,000 unit Haloperidol (Haldol) 0.5 mg PO Q6H PRN PRN Reason: Extreme agitation Haloperidol Lactate (Haldol) 0.5 mg IM Q6H PRN PRN Reason: Extreme agitation Levothyroxine Sodium (Synthroid) 75 mcg PO ACB ON LICENSE OF [facility] Last Admin: 11/23/16 05:38 Dose: 75 mcg Lorazepam (Ativan) 0.5 mg PO Q6H PRN PRN Reason: Extreme agitation Lorazepam (Ativan Inj) 0.5 mg IM Q6H PRN PRN Reason: Extreme agitation Losartan Potassium (Cozaar) 25 mg PO DAILY ON [facility] OF [facility] Last Admin: 11/23/16 09:16 Dose: 25 mg Olanzapine (Zyprexa) 20 mg PO 2100 ON [facility] OF [facility] Last Admin: 11/22/16 20:25 Dose: 20 mg Pantoprazole Sodium (Protonix Tab) 40 mg PO ACB ON [facility] OF [facility] Last Admin: 11/23/16 05:39 Dose: 40 mg Fluticasone/Salmeterol (Advair Hfa) 2 puff INH BID ON [facility] OF [facility] Last Admin: 11/23/16 09:54 Dose: 2 puff Sucralfate (Carafate) 1 gm PO AC30 ON LICENSE OF [facility] Last Admin: 11/23/16 09:16 Dose: 1 gm Tiotropium [place] (Spiriva) 1 cap ORAL INH DAILY ON [facility] OF [facility] Last Admin: 11/23/16 07:54 Dose: 1 cap Subjective: Pt seen and chart examined. Nursing reports pt is doing well. Sleeping well and has a good appetite. No behaviors noted. On face to face the pt states she is doing well. She is less irritable and tangential and is able to carry on a conversation Mood stable. Denies S/I. Tolerating meds Start Time: 11:15 Stop Time: 11:30 Mental Status Exam Vitals: Last Vital Signs Temp 98.0 F 11/23/16 08:00 Pulse 68 11/23/16 08:00 Resp 16 11/23/16 09:45 BP 138/67 11/23/16 08:00 Pulse Ox 92 11/23/16 08:00 Height: 1.65 m Weight: 62.1 kg - Mental Status Exam Muscle Strength/Tone: Normal Dressing: Casual Grooming: Fair Attitude: Cooperative Motor Activity: Normal Eye Contact: Fair Speech: Pressured Volume: Normal Rhythm: Appropriate Rhythm Orientation: Oriented X4 Mood: Euthymic Rate of Thoughts: Pressured Thought Organization: Tangential Associations: Flight of Ideas Abstract Reasoning: Poor abstract reasoning Thought Content: Normal Perception/Psychotic: Perception Normal Fund of Knowledge: Appropriate Memory: Grossly Intact Suicidal Ideation: None Homicidal Ideation: None Insight: Fair Judgement: Fair Impulse Control: Fair - Laboratory Result Diagrams: 11/23/16 07:26 11/23/16 07:26 Laboratory Results - last 24 hr 11/23/16 11/23/16 07:26 07:26 WBC 11.2 H RBC 3.39 L Hgb 9.5 L Hct 30.0 L MCV 88.5 MCH 28.0 MCHC 31.7 RDW Std Deviation 52.8 H Plt Count 208 MPV 11.5 Immature Gran % (Auto) 0.1 Neut % (Auto) 21.8 L Lymph % (Auto) 16.6 L Emery % (Auto) 4.8 Eos % (Auto) 56.2 H Baso % (Auto) 0.5 Neut # 2.4 Lymph # 1.9 Emery # 0.5 Eos # 6.3 H Baso # 0.1 Abs Immat Gran (auto) 0.01 Turbidity < 20 Sodium 144 Potassium 3.7 Chloride 108 H Carbon Dioxide 30 Anion Gap 6 BUN 13.0 Creatinine 0.9 GFR Calculation 61 BUN/Creatinine Ratio 14 Glucose 77 Calculated Osmolality 276 Calcium 9.1 Icterus Index < 2 TSH 0.36 L Specimen Hemolysis < 15 Assessment and Plan (1) Bipolar disorder, current episode manic w/o psychotic features, severe Current visit: Yes Status: Acute Hospital Course Summary Disclaimer: The visit summary below is not to be considered part of the above Progress Note. Hospital Course: 11/15/16 hospitalist consult Bipolar disorder/dementia -Agree with admission to [facility]. Adjust meds per psych. Encourage patient to participate in unit activities. Provide safe environment. UTI -Given her abnormal urinalysis, urinary symptoms and leukocytosis, will treat with nitrofurantoin 100 mg twice a day for 7 days. Adjust therapy as needed once culture is resulted. Asthma -Continue Advair and Spiriva for her asthma. If she should require DuoNeb treatment, this can be ordered. Hypertension -Restart Cozaar. Monitor pressures. As she was not taking any other medication other than her thyroid, will add one antihypertensive back at a time. Will add back in amlodipine 5 mg if pressures are not controlled. Hyperlipidemia -Continue atorvastatin GERD -As patient has been off of all of her medicines except for Synthroid, will wait to add back in her Protonix, Carafate and Reglan. If she has no GI complaints, no reason to restart these medications. (Carafate, Protonix, Reglan are on med list from most recent office visit with PCP) Osteoporosis Will hold calcium and vitamin D during hospitalization, but can resume on dismissal Postsurgical hypothyroidism -Continue Synthroid at current dose. Her TSH was slightly low at 0.25, however, given that it sounds like she was taking more than one Synthroid a day, this is expected. She will need repeat TSH in the outpatient setting in approximately 6 weeks. Hospitalist team will plan to follow patient to manage chronic medical problems throughout her stay. At discharge, patient's care will return to Dr.Lei Andrew (or whoever she has decided to see as her PCP at that time) 11/16/16 10:09 Continue current care 11/16/16 15:36 Continue supportive care. Patient remains hyperverbal and manic.- per attending. Continue macrobid for UTI- await cultures- may need to adjust. Ongoing leukocytosis- repeat CBC in AM. Continue Losartan. Restart lower dose Norvasc. Ginny may partially be due to hyperactive thyroid- pt. was overtaking synthroid. Plan to recheck TSH in 4-6 weeks. Recent admission for epigastric pain. Restart PPI/Carafate. 11/17/16 12:47 Increase Zyprexa to 10mg at HS 11/18/16 09:10 Continue supportive care. Continue macrobid for UTI-culture is sensitive to all antibiotics tested, but macrobid was not on the list. As patient is doing better since starting medication, will continue for the full 7 day course. Continue Losartan and Norvasc for HTN Plan to recheck TSH in 4-6 weeks. PPI and Carafate restarted yesterday - patient is doing well. Zyprexa increased to 10mg yesterday - per psych 11/18/16 18:56 Increase Zyprexa to 15mg at HS 11/19/16 16:50 Increase Zyprexa to 20mg at HS 11/20/16 18:11 Pt's speech remains slightly pressured and tangential but it is improving. Will continue current meds 11/21/16 19:10 DIANDRA and RIPA on Friday to determine placement options 11/22/16 11:31 UTI, acute. * UA culture and sensitivities revealed pansensitive E.coli and Klebsiella pneumoniae. Patient remains on Macrobid to be completed today, 11/22. Continue to monitor for recurrent symptoms. Patient remains afebrile and denies dysuria. Repeat CBC in AM to monitor recent leukocytosis and blood counts. Schizoaffective disorder with acute ginny, improving. * Patient appears to be improving. Continue care per psychiatric team. Zyprexa was increased to 20mg QHS with improved behaviors. Continue to provide safe and supportive environment. Encourage participation in floor actives. CM working on placement and anticipate discharge in near future. Hypertension, chronic. * Blood pressure well controlled. Continue home losartan and Norvasc and monitor closely. Hyperlipidemia, chronic. * Continue home Lipitor and follow as outpatient with PCP. Hypothyroidism, chronic, with acute hyperthyroidism. * TSH on admission was low at 0.25. Patient reportedly on Synthroid 75 mcg. Will recheck TSH with free T4 for further evaluation. May need to decrease Synthroid dose if TSH remains low. Consider consult to Dr. Julian. GERD, chronic. * Continue Protonix and Carafate for GI protection and GERD. Anemia, chronic. * Hemoglobin 10.6 on admission. Will continue to monitor periodically throughout admission. Recheck CBC in AM to monitor blood counts. 11/22/16 17:33 Pt remains irritable and labile but improving. Continue current care 11/23/16 13:43 Continues to improve. Continue current care
[2016-11-23] MEDS: OLANZapine 10 MG TABLET PO SCH (20:33)
[2016-11-23] MEDS: ATORVASTATIN 10 MG TABLET PO SCH (20:33)
[2016-11-24] MEDS: LEVOTHYROXINE 75 MCG TABLET PO SCH (05:37)
[2016-11-24] MEDS: PANTOPRAZOLE 40 MG TABLET PO SCH (05:37)
[2016-11-24] MEDS: TIOTROPIUM 18mcg/cap HANDIHALER ORAL INH SCH (08:19)
[2016-11-24] MEDS: LOSARTAN 50 MG TABLET PO SCH (09:28)
[2016-11-24] MEDS: CALCIUM CARBONATE 500 MG TABLET PO SCH ×3 (09:28→20:32)
[2016-11-24] MEDS: SUCRALFATE 1 GM TABLET PO SCH ×3 (09:28→17:20)
[2016-11-24] MEDS: AMLODIPINE 2.5 MG TABLET PO SCH (09:29)
[2016-11-24] MEDS: SALMETEROL INH SCH ×2 (09:56→19:43)
[2016-11-24] MEDS: FLUTICASONE INH SCH ×2 (09:56→19:43)
--- NOTE | 2016-11-24 17:10 | Neuropsych Progress Note ---
[facility] Subjective Date: 11/24/16 - Sujective/Severity of Illness Medications: Amlodipine Besylate (Norvasc) 2.5 mg PO DAILY [facility] Last Admin: 11/24/16 09:29 Dose: 2.5 mg Artificial Tears (Refresh Classic) 1 drop EACH EYE BID PRN PRN Reason: DRY EYES Atorvastatin Calcium (Lipitor) 10 mg PO 2100 [facility] Last Admin: 11/23/16 20:33 Dose: 10 mg Calcium Carbonate (Calcium) 500 mg PO 0900,1200,2100 [facility] Last Admin: 11/24/16 12:07 Dose: 500 mg Cholecalciferol (Vit. D-3) 1,000 unit PO DAILY [facility] Last Admin: 11/24/16 09:29 Dose: 1,000 unit Haloperidol (Haldol) 0.5 mg PO Q6H PRN PRN Reason: Extreme agitation Haloperidol Lactate (Haldol) 0.5 mg IM Q6H PRN PRN Reason: Extreme agitation Levothyroxine Sodium (Synthroid) 75 mcg PO ACB [facility] Last Admin: 11/24/16 05:37 Dose: 75 mcg Lorazepam (Ativan) 0.5 mg PO Q6H PRN PRN Reason: Extreme agitation Lorazepam (Ativan Inj) 0.5 mg IM Q6H PRN PRN Reason: Extreme agitation Losartan Potassium (Cozaar) 25 mg PO DAILY [facility] Last Admin: 11/24/16 09:28 Dose: 25 mg Olanzapine (Zyprexa) 20 mg PO 2100 [facility] Last Admin: 11/23/16 20:33 Dose: 20 mg Pantoprazole Sodium (Protonix Tab) 40 mg PO ACB [facility] Last Admin: 11/24/16 05:37 Dose: 40 mg Fluticasone/Salmeterol (Advair Hfa) 2 puff INH BID [facility] Last Admin: 11/24/16 09:56 Dose: 2 puff Sucralfate (Carafate) 1 gm PO AC30 [facility] Last Admin: 11/24/16 12:07 Dose: 1 gm Tiotropium [place] (Spiriva) 1 cap ORAL INH DAILY [facility] Last Admin: 11/24/16 08:19 Dose: 1 cap Subjective: Pt seen and chart examined. Nursing reports pt is doing well. Sleeping well and having a good appetite. Some irritability but improved. On face to face the pt states she is doing well. Mood stable. Denies S/I or psychosis. Tolerating meds Start Time: 11:15 Stop Time: 11:30 Mental Status Exam Vitals: Last Vital Signs Temp 99.2 F 11/24/16 16:00 Pulse 72 11/24/16 16:00 Resp 18 11/24/16 16:00 BP 95/62 11/24/16 16:00 Pulse Ox 92 11/24/16 16:00 Height: 1.65 m Weight: 62.1 kg - Mental Status Exam Muscle Strength/Tone: Normal Dressing: Casual Grooming: Fair Attitude: Cooperative Motor Activity: Normal Eye Contact: Fair Speech: Pressured Volume: Normal Rhythm: Appropriate Rhythm Orientation: Oriented X4 Mood: Euthymic Rate of Thoughts: Pressured Thought Organization: Tangential Associations: Flight of Ideas Abstract Reasoning: Poor abstract reasoning Thought Content: Normal Perception/Psychotic: Perception Normal Fund of Knowledge: Appropriate Memory: Grossly Intact Suicidal Ideation: None Homicidal Ideation: None Insight: Fair Judgement: Fair Impulse Control: Fair - Laboratory Result Diagrams: 11/23/16 07:26 11/23/16 07:26 Assessment and Plan (1) Bipolar disorder, current episode manic w/o psychotic features, severe Current visit: Yes Status: Acute Hospital Course Summary Disclaimer: The visit summary below is not to be considered part of the above Progress Note. Hospital Course: 11/15/16 hospitalist consult Bipolar disorder/dementia -Agree with admission to [facility]. Adjust meds per psych. Encourage patient to participate in unit activities. Provide safe environment. UTI -Given her abnormal urinalysis, urinary symptoms and leukocytosis, will treat with nitrofurantoin 100 mg twice a day for 7 days. Adjust therapy as needed once culture is resulted. Asthma -Continue Advair and Spiriva for her asthma. If she should require DuoNeb treatment, this can be ordered. Hypertension -Restart Cozaar. Monitor pressures. As she was not taking any other medication other than her thyroid, will add one antihypertensive back at a time. Will add back in amlodipine 5 mg if pressures are not controlled. Hyperlipidemia -Continue atorvastatin GERD -As patient has been off of all of her medicines except for Synthroid, will wait to add back in her Protonix, Carafate and Reglan. If she has no GI complaints, no reason to restart these medications. (Carafate, Protonix, Reglan are on med list from most recent office visit with PCP) Osteoporosis Will hold calcium and vitamin D during hospitalization, but can resume on dismissal Postsurgical hypothyroidism -Continue Synthroid at current dose. Her TSH was slightly low at 0.25, however, given that it sounds like she was taking more than one Synthroid a day, this is expected. She will need repeat TSH in the outpatient setting in approximately 6 weeks. Hospitalist team will plan to follow patient to manage chronic medical problems throughout her stay. At discharge, patient's care will return to Dr.Lei Andrew (or whoever she has decided to see as her PCP at that time) 11/16/16 10:09 Continue current care 11/16/16 15:36 Continue supportive care. Patient remains hyperverbal and manic.- per attending. Continue macrobid for UTI- await cultures- may need to adjust. Ongoing leukocytosis- repeat CBC in AM. Continue Losartan. Restart lower dose Norvasc. Ginny may partially be due to hyperactive thyroid- pt. was overtaking synthroid. Plan to recheck TSH in 4-6 weeks. Recent admission for epigastric pain. Restart PPI/Carafate. 11/17/16 12:47 Increase Zyprexa to 10mg at HS 11/18/16 09:10 Continue supportive care. Continue macrobid for UTI-culture is sensitive to all antibiotics tested, but macrobid was not on the list. As patient is doing better since starting medication, will continue for the full 7 day course. Continue Losartan and Norvasc for HTN Plan to recheck TSH in 4-6 weeks. PPI and Carafate restarted yesterday - patient is doing well. Zyprexa increased to 10mg yesterday - per psych 11/18/16 18:56 Increase Zyprexa to 15mg at HS 11/19/16 16:50 Increase Zyprexa to 20mg at HS 11/20/16 18:11 Pt's speech remains slightly pressured and tangential but it is improving. Will continue current meds 11/21/16 19:10 DIANDRA and RIPA on Friday to determine placement options 11/22/16 11:31 UTI, acute. * UA culture and sensitivities revealed pansensitive E.coli and Klebsiella pneumoniae. Patient remains on Macrobid to be completed today, 11/22. Continue to monitor for recurrent symptoms. Patient remains afebrile and denies dysuria. Repeat CBC in AM to monitor recent leukocytosis and blood counts. Schizoaffective disorder with acute ginny, improving. * Patient appears to be improving. Continue care per psychiatric team. Zyprexa was increased to 20mg QHS with improved behaviors. Continue to provide safe and supportive environment. Encourage participation in floor actives. CM working on placement and anticipate discharge in near future. Hypertension, chronic. * Blood pressure well controlled. Continue home losartan and Norvasc and monitor closely. Hyperlipidemia, chronic. * Continue home Lipitor and follow as outpatient with PCP. Hypothyroidism, chronic, with acute hyperthyroidism. * TSH on admission was low at 0.25. Patient reportedly on Synthroid 75 mcg. Will recheck TSH with free T4 for further evaluation. May need to decrease Synthroid dose if TSH remains low. Consider consult to Dr. Julian. GERD, chronic. * Continue Protonix and Carafate for GI protection and GERD. Anemia, chronic. * Hemoglobin 10.6 on admission. Will continue to monitor periodically throughout admission. Recheck CBC in AM to monitor blood counts. 11/22/16 17:33 Pt remains irritable and labile but improving. Continue current care 11/23/16 13:43 Continues to improve. Continue current care 11/24/16 17:10 Continue current care. Testing Friday
[2016-11-24] MEDS: OLANZapine 10 MG TABLET PO SCH (20:32)
[2016-11-24] MEDS: ATORVASTATIN 10 MG TABLET PO SCH (20:32)
[2016-11-25] MEDS: PANTOPRAZOLE 40 MG TABLET PO SCH (06:43)
[2016-11-25] MEDS: LEVOTHYROXINE 75 MCG TABLET PO SCH (06:44)
[2016-11-25] MEDS: TIOTROPIUM 18mcg/cap HANDIHALER ORAL INH SCH (08:12)
[2016-11-25] MEDS: CALCIUM CARBONATE 500 MG TABLET PO SCH ×3 (08:32→20:21)
[2016-11-25] MEDS: SUCRALFATE 1 GM TABLET PO SCH ×3 (08:32→17:17)
[2016-11-25] MEDS: AMLODIPINE 2.5 MG TABLET PO SCH (08:33)
[2016-11-25] MEDS: LOSARTAN 50 MG TABLET PO SCH (08:33)
[2016-11-25] MEDS: FLUTICASONE INH SCH ×2 (08:56→19:58)
[2016-11-25] MEDS: SALMETEROL INH SCH ×2 (08:56→19:58)
--- NOTE | 2016-11-25 18:16 | Neuropsych Progress Note ---
[facility] Subjective Date: 11/25/16 - Sujective/Severity of Illness Medications: Amlodipine Besylate (Norvasc) 2.5 mg PO DAILY [facility] Last Admin: 11/25/16 08:33 Dose: 2.5 mg Artificial Tears (Refresh Classic) 1 drop EACH EYE BID PRN PRN Reason: DRY EYES Atorvastatin Calcium (Lipitor) 10 mg PO 2100 [facility] Last Admin: 11/24/16 20:32 Dose: 10 mg Calcium Carbonate (Calcium) 500 mg PO 0900,1200,2100 [facility] Last Admin: 11/25/16 12:23 Dose: 500 mg Cholecalciferol (Vit. D-3) 1,000 unit PO DAILY [facility] Last Admin: 11/25/16 08:34 Dose: 1,000 unit Haloperidol (Haldol) 0.5 mg PO Q6H PRN PRN Reason: Extreme agitation Haloperidol Lactate (Haldol) 0.5 mg IM Q6H PRN PRN Reason: Extreme agitation Levothyroxine Sodium (Synthroid) 75 mcg PO ACB [facility] Last Admin: 11/25/16 06:44 Dose: 75 mcg Lorazepam (Ativan) 0.5 mg PO Q6H PRN PRN Reason: Extreme agitation Lorazepam (Ativan Inj) 0.5 mg IM Q6H PRN PRN Reason: Extreme agitation Losartan Potassium (Cozaar) 25 mg PO DAILY [facility] Last Admin: 11/25/16 08:33 Dose: 25 mg Olanzapine (Zyprexa) 20 mg PO 2100 [facility] Last Admin: 11/24/16 20:32 Dose: 20 mg Pantoprazole Sodium (Protonix Tab) 40 mg PO ACB [facility] Last Admin: 11/25/16 06:43 Dose: 40 mg Fluticasone/Salmeterol (Advair Hfa) 2 puff INH BID [facility] Last Admin: 11/25/16 08:56 Dose: 2 puff Sucralfate (Carafate) 1 gm PO AC30 [facility] Last Admin: 11/25/16 17:17 Dose: 1 gm Tiotropium [place] (Spiriva) 1 cap ORAL INH DAILY [facility] Last Admin: 11/25/16 08:12 Dose: 1 cap Subjective: Pt seen and chart examined. Nursing reports pt remains some what irritable at times but is redirectable. On face to face the pt states she is doing well. She states she learned she is going to [place] but feels she is coping with this well. She reports her mood is stable. She denies any S/i or psychosis. Tolerating meds. Start Time: 17:15 Stop Time: 17:30 Mental Status Exam Vitals: Last Vital Signs Temp 99.2 F 11/25/16 16:00 Pulse 96 11/25/16 16:00 Resp 16 11/25/16 16:00 BP 120/67 11/25/16 16:00 Pulse Ox 93 11/25/16 16:00 Height: 1.65 m Weight: 62.1 kg - Mental Status Exam Muscle Strength/Tone: Normal Dressing: Casual Grooming: Fair Attitude: Cooperative Motor Activity: Normal Eye Contact: Fair Speech: Pressured Volume: Normal Rhythm: Appropriate Rhythm Orientation: Oriented X4 Mood: Euthymic Rate of Thoughts: Pressured Thought Organization: Tangential Associations: Flight of Ideas Abstract Reasoning: Poor abstract reasoning Thought Content: Normal Perception/Psychotic: Perception Normal Fund of Knowledge: Appropriate Memory: Grossly Intact Suicidal Ideation: None Homicidal Ideation: None Insight: Fair Judgement: Fair Impulse Control: Fair - Laboratory Result Diagrams: 11/23/16 07:26 11/23/16 07:26 Laboratory Results - last 24 hr 11/23/16 07:26 Free T4 1.44 Free T3 3.45 Assessment and Plan (1) Bipolar disorder, current episode manic w/o psychotic features, severe Current visit: Yes Status: Acute Hospital Course Summary Disclaimer: The visit summary below is not to be considered part of the above Progress Note. Hospital Course: 11/15/16 hospitalist consult Bipolar disorder/dementia -Agree with admission to [facility]. Adjust meds per psych. Encourage patient to participate in unit activities. Provide safe environment. UTI -Given her abnormal urinalysis, urinary symptoms and leukocytosis, will treat with nitrofurantoin 100 mg twice a day for 7 days. Adjust therapy as needed once culture is resulted. Asthma -Continue Advair and Spiriva for her asthma. If she should require DuoNeb treatment, this can be ordered. Hypertension -Restart Cozaar. Monitor pressures. As she was not taking any other medication other than her thyroid, will add one antihypertensive back at a time. Will add back in amlodipine 5 mg if pressures are not controlled. Hyperlipidemia -Continue atorvastatin GERD -As patient has been off of all of her medicines except for Synthroid, will wait to add back in her Protonix, Carafate and Reglan. If she has no GI complaints, no reason to restart these medications. (Carafate, Protonix, Reglan are on med list from most recent office visit with PCP) Osteoporosis Will hold calcium and vitamin D during hospitalization, but can resume on dismissal Postsurgical hypothyroidism -Continue Synthroid at current dose. Her TSH was slightly low at 0.25, however, given that it sounds like she was taking more than one Synthroid a day, this is expected. She will need repeat TSH in the outpatient setting in approximately 6 weeks. Hospitalist team will plan to follow patient to manage chronic medical problems throughout her stay. At discharge, patient's care will return to Dr.Lei Andrew (or whoever she has decided to see as her PCP at that time) 11/16/16 10:09 Continue current care 11/16/16 15:36 Continue supportive care. Patient remains hyperverbal and manic.- per attending. Continue macrobid for UTI- await cultures- may need to adjust. Ongoing leukocytosis- repeat CBC in AM. Continue Losartan. Restart lower dose Norvasc. Ginny may partially be due to hyperactive thyroid- pt. was overtaking synthroid. Plan to recheck TSH in 4-6 weeks. Recent admission for epigastric pain. Restart PPI/Carafate. 11/17/16 12:47 Increase Zyprexa to 10mg at HS 11/18/16 09:10 Continue supportive care. Continue macrobid for UTI-culture is sensitive to all antibiotics tested, but macrobid was not on the list. As patient is doing better since starting medication, will continue for the full 7 day course. Continue Losartan and Norvasc for HTN Plan to recheck TSH in 4-6 weeks. PPI and Carafate restarted yesterday - patient is doing well. Zyprexa increased to 10mg yesterday - per psych 11/18/16 18:56 Increase Zyprexa to 15mg at HS 11/19/16 16:50 Increase Zyprexa to 20mg at HS 11/20/16 18:11 Pt's speech remains slightly pressured and tangential but it is improving. Will continue current meds 11/21/16 19:10 DIANDRA and RIPA on Friday to determine placement options 11/22/16 11:31 UTI, acute. * UA culture and sensitivities revealed pansensitive E.coli and Klebsiella pneumoniae. Patient remains on Macrobid to be completed today, 11/22. Continue to monitor for recurrent symptoms. Patient remains afebrile and denies dysuria. Repeat CBC in AM to monitor recent leukocytosis and blood counts. Schizoaffective disorder with acute ginny, improving. * Patient appears to be improving. Continue care per psychiatric team. Zyprexa was increased to 20mg QHS with improved behaviors. Continue to provide safe and supportive environment. Encourage participation in floor actives. CM working on placement and anticipate discharge in near future. Hypertension, chronic. * Blood pressure well controlled. Continue home losartan and Norvasc and monitor closely. Hyperlipidemia, chronic. * Continue home Lipitor and follow as outpatient with PCP. Hypothyroidism, chronic, with acute hyperthyroidism. * TSH on admission was low at 0.25. Patient reportedly on Synthroid 75 mcg. Will recheck TSH with free T4 for further evaluation. May need to decrease Synthroid dose if TSH remains low. Consider consult to Dr. Julian. GERD, chronic. * Continue Protonix and Carafate for GI protection and GERD. Anemia, chronic. * Hemoglobin 10.6 on admission. Will continue to monitor periodically throughout admission. Recheck CBC in AM to monitor blood counts. 11/22/16 17:33 Pt remains irritable and labile but improving. Continue current care 11/23/16 13:43 Continues to improve. Continue current care 11/24/16 17:10 Continue current care. Testing Friday11/25/16 18:15 Pt doing better. Family looking at [place] placement
[2016-11-25] MEDS: ATORVASTATIN 10 MG TABLET PO SCH (20:21)
[2016-11-25] MEDS: OLANZapine 10 MG TABLET PO SCH (20:21)
[2016-11-26] MEDS: LEVOTHYROXINE 75 MCG TABLET PO SCH (07:14)
[2016-11-26] MEDS: PANTOPRAZOLE 40 MG TABLET PO SCH (07:14)
[2016-11-26] MEDS: SUCRALFATE 1 GM TABLET PO SCH ×3 (07:14→18:04)
[2016-11-26] MEDS: FLUTICASONE INH SCH ×2 (07:55→20:09)
[2016-11-26] MEDS: SALMETEROL INH SCH ×2 (07:55→20:09)
[2016-11-26] MEDS: AMLODIPINE 2.5 MG TABLET PO SCH (08:00)
[2016-11-26] MEDS: CALCIUM CARBONATE 500 MG TABLET PO SCH ×3 (08:00→20:18)
[2016-11-26] MEDS: LOSARTAN 50 MG TABLET PO SCH (08:00)
[2016-11-26] MEDS: TIOTROPIUM 18mcg/cap HANDIHALER ORAL INH SCH (10:06)
--- NOTE | 2016-11-26 10:49 | Progress Note ---
Subjective: Yennifer was relaxing in the dayroom. She was in no distress and denied any acute medical concerns. She denied any SOA, cough/congestion, chest pain, abdominal pain or GI complaints. She's been eating well. No weakness/dizziness. Objective Vital signs: Temperature 98.0 F 11/26/16 08:00 Pulse Rate 71 11/26/16 08:00 Respiratory Rate 16 11/26/16 10:05 Blood Pressure 134/65 11/26/16 08:00 Pulse Oximetry 92 11/26/16 08:00 Oxygen Delivery Method Room Air Height/Weight/BMI: Height 1.65 m Weight 62.1 kg Body Mass Index 22.6 - Constitutional Present: no acute distress, well nourished, well developed - Routine HEENT Exam ENT: Present: mucous membranes moist, oropharynx clear - Routine Respiratory Exam Present: CTA bilaterally - Routine Cardiovascular Exam Present: RRR, S1, S2 - Routine Abdominal Exam Present: soft, normoactive bowel sounds, non distended, non tender - Routine Extremities Exam Present: no edema, pulses intact, normal capillary refill - Routine Musculoskeletal Exam Musculoskeletal: Present: moving extremities well - Routine Skin Exam Present: intact, dry, warm - Routine Psychiatric Exam Present: cooperative Results - Labs CBC & Chem 7: 11/23/16 07:26 11/23/16 07:26 Microbiology Results: Microbiology 11/15/16 06:41 Urine, Voided (Cc/notcc) Urine Culture - Final Escherichia coli Assessment and Plan (1) Bipolar disorder, current episode manic w/o psychotic features, severe Current visit: Yes Status: Acute GI Prophylaxis: Protonix Resuscitation Status: Do Not Resuscitate Assessment and Plan: ASSESSMENT UTI, E.coli and Klebsiella pneumoniae. Macrobid completed on 11/22. Leukocytosis Schizoaffective disorder with acute estiven Hypertension. Hyperlipidemia Hypothyroidism, with acute hyperthyroidism. GERD Anemia, chronic. PLAN Free T3 and T4 studies were normal. Pt was overdosing herself on Synthroid prior to admission - follow in outpatient setting. Leukocytosis - improving. Anemia - hgb decreased to 9.5. Repeat CBC in am. CM working on placement. Sepsis Assessment - Evaluation Sepsis screening result: No Definite Risk Hospital Course Summary Disclaimer: The visit summary below is not to be considered part of the above Progress Note. Hospital Course: 11/15/16 hospitalist consult Bipolar disorder/dementia -Agree with admission to [facility]. Adjust meds per psych. Encourage patient to participate in unit activities. Provide safe environment. UTI -Given her abnormal urinalysis, urinary symptoms and leukocytosis, will treat with nitrofurantoin 100 mg twice a day for 7 days. Adjust therapy as needed once culture is resulted. Asthma -Continue Advair and Spiriva for her asthma. If she should require DuoNeb treatment, this can be ordered. Hypertension -Restart Cozaar. Monitor pressures. As she was not taking any other medication other than her thyroid, will add one antihypertensive back at a time. Will add back in amlodipine 5 mg if pressures are not controlled. Hyperlipidemia -Continue atorvastatin GERD -As patient has been off of all of her medicines except for Synthroid, will wait to add back in her Protonix, Carafate and Reglan. If she has no GI complaints, no reason to restart these medications. (Carafate, Protonix, Reglan are on med list from most recent office visit with PCP) Osteoporosis Will hold calcium and vitamin D during hospitalization, but can resume on dismissal Postsurgical hypothyroidism -Continue Synthroid at current dose. Her TSH was slightly low at 0.25, however, given that it sounds like she was taking more than one Synthroid a day, this is expected. She will need repeat TSH in the outpatient setting in approximately 6 weeks. Hospitalist team will plan to follow patient to manage chronic medical problems throughout her stay. At discharge, patient's care will return to Dr.Lei Andrew (or whoever she has decided to see as her PCP at that time) 11/16/16 10:09 Continue current care 11/16/16 15:36 Continue supportive care. Patient remains hyperverbal and manic.- per attending. Continue macrobid for UTI- await cultures- may need to adjust. Ongoing leukocytosis- repeat CBC in AM. Continue Losartan. Restart lower dose Norvasc. Estiven may partially be due to hyperactive thyroid- pt. was overtaking synthroid. Plan to recheck TSH in 4-6 weeks. Recent admission for epigastric pain. Restart PPI/Carafate. 11/17/16 12:47 Increase Zyprexa to 10mg at HS 11/18/16 09:10 Continue supportive care. Continue macrobid for UTI-culture is sensitive to all antibiotics tested, but macrobid was not on the list. As patient is doing better since starting medication, will continue for the full 7 day course. Continue Losartan and Norvasc for HTN Plan to recheck TSH in 4-6 weeks. PPI and Carafate restarted yesterday - patient is doing well. Zyprexa increased to 10mg yesterday - per psych 11/18/16 18:56 Increase Zyprexa to 15mg at HS 11/19/16 16:50 Increase Zyprexa to 20mg at HS 11/20/16 18:11 Pt's speech remains slightly pressured and tangential but it is improving. Will continue current meds 11/21/16 19:10 DIANDRA and RIPA on Friday to determine placement options 11/22/16 UTI, acute. * UA culture and sensitivities revealed pansensitive E.coli and Klebsiella pneumoniae. Patient remains on Macrobid to be completed today, 11/22. Continue to monitor for recurrent symptoms. Patient remains afebrile and denies dysuria. Repeat CBC in AM to monitor recent leukocytosis and blood counts. Schizoaffective disorder with acute estiven, improving. * Patient appears to be improving. Continue care per psychiatric team. Zyprexa was increased to 20mg QHS with improved behaviors. Continue to provide safe and supportive environment. Encourage participation in floor actives. CM working on placement and anticipate discharge in near future. Hypertension, chronic. * Blood pressure well controlled. Continue home losartan and Norvasc and monitor closely. Hyperlipidemia, chronic. * Continue home Lipitor and follow as outpatient with PCP. Hypothyroidism, chronic, with acute hyperthyroidism. * TSH on admission was low at 0.25. Patient reportedly on Synthroid 75 mcg. Will recheck TSH with free T4 for further evaluation. May need to decrease Synthroid dose if TSH remains low. Consider consult to Dr. Julian. GERD, chronic. * Continue Protonix and Carafate for GI protection and GERD. Anemia, chronic. * Hemoglobin 10.6 on admission. Will continue to monitor periodically throughout admission. Recheck CBC in AM to monitor blood counts. 11/22/16 17:33 Pt remains irritable and labile but improving. Continue current care 11/23/16 13:43 Continues to improve. Continue current care 11/24/16 17:10 Continue current care. Testing Friday11/25/16 18:15 Pt doing better. Family looking at [place] placement 11/26/16 Free T3 and T4 studies were normal. Pt was overdosing herself on Synthroid prior to admission - follow in outpatient setting. Leukocytosis - improving. Anemia - hgb decreased to 9.5.
[2016-11-26] MEDS: ATORVASTATIN 10 MG TABLET PO SCH (20:18)
[2016-11-26] MEDS: OLANZapine 10 MG TABLET PO SCH (20:18)
--- NOTE | 2016-11-26 20:46 | Neuropsych Progress Note ---
[facility] Subjective Date: 11/26/16 - Sujective/Severity of Illness Medications: Amlodipine Besylate (Norvasc) 2.5 mg PO DAILY [facility] Last Admin: 11/26/16 08:00 Dose: 2.5 mg Artificial Tears (Refresh Classic) 1 drop EACH EYE BID PRN PRN Reason: DRY EYES Atorvastatin Calcium (Lipitor) 10 mg PO 2100 [facility] Last Admin: 11/26/16 20:18 Dose: 10 mg Calcium Carbonate (Calcium) 500 mg PO 0900,1200,2100 [facility] Last Admin: 11/26/16 20:18 Dose: 500 mg Cholecalciferol (Vit. D-3) 1,000 unit PO DAILY [facility] Last Admin: 11/26/16 08:00 Dose: 1,000 unit Haloperidol (Haldol) 0.5 mg PO Q6H PRN PRN Reason: Extreme agitation Haloperidol Lactate (Haldol) 0.5 mg IM Q6H PRN PRN Reason: Extreme agitation Levothyroxine Sodium (Synthroid) 75 mcg PO ACB [facility] Last Admin: 11/26/16 07:14 Dose: 75 mcg Lorazepam (Ativan) 0.5 mg PO Q6H PRN PRN Reason: Extreme agitation Lorazepam (Ativan Inj) 0.5 mg IM Q6H PRN PRN Reason: Extreme agitation Losartan Potassium (Cozaar) 25 mg PO DAILY [facility] Last Admin: 11/26/16 08:00 Dose: 25 mg Olanzapine (Zyprexa) 20 mg PO 2100 [facility] Last Admin: 11/26/16 20:18 Dose: 20 mg Pantoprazole Sodium (Protonix Tab) 40 mg PO ACB [facility] Last Admin: 11/26/16 07:14 Dose: 40 mg Fluticasone/Salmeterol (Advair Hfa) 2 puff INH BID [facility] Last Admin: 11/26/16 20:09 Dose: 2 puff Sucralfate (Carafate) 1 gm PO AC30 [facility] Last Admin: 11/26/16 18:04 Dose: 1 gm Tiotropium [place] (Spiriva) 1 cap ORAL INH DAILY [facility] Last Admin: 11/26/16 10:06 Dose: 1 cap Subjective: Pt seen and chart examined. Nursing reports pt is doing well. Remains irritable at times but improved. No behaviors noted. On face to face the pt states she is doing well. SHe reports her mood is stable and she denies any S/ I. She reports tolerating her meds well. She states she does not want to go to [place] but we discussed the testing showed this is what is needed. Start Time: 17:15 Stop Time: 17:30 Mental Status Exam Vitals: Last Vital Signs Temp 97.8 F 11/26/16 16:00 Pulse 68 11/26/16 16:00 Resp 16 11/26/16 20:10 BP 121/65 11/26/16 16:00 Pulse Ox 96 11/26/16 16:00 Height: 1.65 m Weight: 62.1 kg - Mental Status Exam Muscle Strength/Tone: Normal Dressing: Casual Grooming: Fair Attitude: Cooperative Motor Activity: Normal Eye Contact: Fair Speech: Pressured Volume: Normal Rhythm: Appropriate Rhythm Orientation: Oriented X4 Mood: Euthymic Rate of Thoughts: Pressured Thought Organization: Tangential Associations: Flight of Ideas Abstract Reasoning: Poor abstract reasoning Thought Content: Normal Perception/Psychotic: Perception Normal Fund of Knowledge: Appropriate Memory: Grossly Intact Suicidal Ideation: None Homicidal Ideation: None Insight: Fair Judgement: Fair Impulse Control: Fair - Laboratory Result Diagrams: 11/23/16 07:26 11/23/16 07:26 Assessment and Plan (1) Bipolar disorder, current episode manic w/o psychotic features, severe Current visit: Yes Status: Acute Hospital Course Summary Disclaimer: The visit summary below is not to be considered part of the above Progress Note. Hospital Course: 11/15/16 hospitalist consult Bipolar disorder/dementia -Agree with admission to [facility]. Adjust meds per psych. Encourage patient to participate in unit activities. Provide safe environment. UTI -Given her abnormal urinalysis, urinary symptoms and leukocytosis, will treat with nitrofurantoin 100 mg twice a day for 7 days. Adjust therapy as needed once culture is resulted. Asthma -Continue Advair and Spiriva for her asthma. If she should require DuoNeb treatment, this can be ordered. Hypertension -Restart Cozaar. Monitor pressures. As she was not taking any other medication other than her thyroid, will add one antihypertensive back at a time. Will add back in amlodipine 5 mg if pressures are not controlled. Hyperlipidemia -Continue atorvastatin GERD -As patient has been off of all of her medicines except for Synthroid, will wait to add back in her Protonix, Carafate and Reglan. If she has no GI complaints, no reason to restart these medications. (Carafate, Protonix, Reglan are on med list from most recent office visit with PCP) Osteoporosis Will hold calcium and vitamin D during hospitalization, but can resume on dismissal Postsurgical hypothyroidism -Continue Synthroid at current dose. Her TSH was slightly low at 0.25, however, given that it sounds like she was taking more than one Synthroid a day, this is expected. She will need repeat TSH in the outpatient setting in approximately 6 weeks. Hospitalist team will plan to follow patient to manage chronic medical problems throughout her stay. At discharge, patient's care will return to Dr.Lei Andrew (or whoever she has decided to see as her PCP at that time) 11/16/16 10:09 Continue current care 11/16/16 15:36 Continue supportive care. Patient remains hyperverbal and manic.- per attending. Continue macrobid for UTI- await cultures- may need to adjust. Ongoing leukocytosis- repeat CBC in AM. Continue Losartan. Restart lower dose Norvasc. Ginny may partially be due to hyperactive thyroid- pt. was overtaking synthroid. Plan to recheck TSH in 4-6 weeks. Recent admission for epigastric pain. Restart PPI/Carafate. 11/17/16 12:47 Increase Zyprexa to 10mg at HS 11/18/16 09:10 Continue supportive care. Continue macrobid for UTI-culture is sensitive to all antibiotics tested, but macrobid was not on the list. As patient is doing better since starting medication, will continue for the full 7 day course. Continue Losartan and Norvasc for HTN Plan to recheck TSH in 4-6 weeks. PPI and Carafate restarted yesterday - patient is doing well. Zyprexa increased to 10mg yesterday - per psych 11/18/16 18:56 Increase Zyprexa to 15mg at HS 11/19/16 16:50 Increase Zyprexa to 20mg at HS 11/20/16 18:11 Pt's speech remains slightly pressured and tangential but it is improving. Will continue current meds 11/21/16 19:10 DIANDRA and RIPA on Friday to determine placement options 11/22/16 UTI, acute. * UA culture and sensitivities revealed pansensitive E.coli and Klebsiella pneumoniae. Patient remains on Macrobid to be completed today, 11/22. Continue to monitor for recurrent symptoms. Patient remains afebrile and denies dysuria. Repeat CBC in AM to monitor recent leukocytosis and blood counts. Schizoaffective disorder with acute ginny, improving. * Patient appears to be improving. Continue care per psychiatric team. Zyprexa was increased to 20mg QHS with improved behaviors. Continue to provide safe and supportive environment. Encourage participation in floor actives. CM working on placement and anticipate discharge in near future. Hypertension, chronic. * Blood pressure well controlled. Continue home losartan and Norvasc and monitor closely. Hyperlipidemia, chronic. * Continue home Lipitor and follow as outpatient with PCP. Hypothyroidism, chronic, with acute hyperthyroidism. * TSH on admission was low at 0.25. Patient reportedly on Synthroid 75 mcg. Will recheck TSH with free T4 for further evaluation. May need to decrease Synthroid dose if TSH remains low. Consider consult to Dr. Julian. GERD, chronic. * Continue Protonix and Carafate for GI protection and GERD. Anemia, chronic. * Hemoglobin 10.6 on admission. Will continue to monitor periodically throughout admission. Recheck CBC in AM to monitor blood counts. 11/22/16 17:33 Pt remains irritable and labile but improving. Continue current care 11/23/16 13:43 Continues to improve. Continue current care 11/24/16 17:10 Continue current care. Testing Friday11/25/16 18:15 Pt doing better. Family looking at [place] placement 11/26/16 Free T3 and T4 studies were normal. Pt was overdosing herself on Synthroid prior to admission - follow in outpatient setting. Leukocytosis - improving. Anemia - hgb decreased to 9.5. 11/26/16 20:45 Pt fairly stable. Continue current care
[2016-11-27] MEDS: FLUTICASONE INH SCH ×2 (07:39→22:09)
[2016-11-27] MEDS: SALMETEROL INH SCH ×2 (07:39→22:09)
[2016-11-27] MEDS: PANTOPRAZOLE 40 MG TABLET PO SCH (09:05)
[2016-11-27] MEDS: LOSARTAN 50 MG TABLET PO SCH (09:06)
[2016-11-27] MEDS: LEVOTHYROXINE 75 MCG TABLET PO SCH (09:06)
[2016-11-27] MEDS: CALCIUM CARBONATE 500 MG TABLET PO SCH ×3 (09:06→19:53)
[2016-11-27] MEDS: SUCRALFATE 1 GM TABLET PO SCH ×3 (09:06→17:09)
[2016-11-27] MEDS: AMLODIPINE 2.5 MG TABLET PO SCH (09:06)
[2016-11-27] MEDS: TIOTROPIUM 18mcg/cap HANDIHALER ORAL INH SCH (09:46)
[2016-11-27] MEDS: OLANZapine 10 MG TABLET PO SCH (19:53)
[2016-11-27] MEDS: ATORVASTATIN 10 MG TABLET PO SCH (19:53)
--- NOTE | 2016-11-27 20:08 | Neuropsych Progress Note ---
[facility] Subjective Date: 11/27/16 - Sujective/Severity of Illness Medications: Amlodipine Besylate (Norvasc) 2.5 mg PO DAILY [facility] Last Admin: 11/27/16 09:06 Dose: 2.5 mg Artificial Tears (Refresh Classic) 1 drop EACH EYE BID PRN PRN Reason: DRY EYES Atorvastatin Calcium (Lipitor) 10 mg PO 2100 [facility] Last Admin: 11/27/16 19:53 Dose: 10 mg Calcium Carbonate (Calcium) 500 mg PO 0900,1200,2100 [facility] Last Admin: 11/27/16 19:53 Dose: 500 mg Cholecalciferol (Vit. D-3) 1,000 unit PO DAILY [facility] Last Admin: 11/27/16 09:06 Dose: 1,000 unit Haloperidol (Haldol) 0.5 mg PO Q6H PRN PRN Reason: Extreme agitation Haloperidol Lactate (Haldol) 0.5 mg IM Q6H PRN PRN Reason: Extreme agitation Levothyroxine Sodium (Synthroid) 75 mcg PO ACB [facility] Last Admin: 11/27/16 09:06 Dose: 75 mcg Lorazepam (Ativan) 0.5 mg PO Q6H PRN PRN Reason: Extreme agitation Lorazepam (Ativan Inj) 0.5 mg IM Q6H PRN PRN Reason: Extreme agitation Losartan Potassium (Cozaar) 25 mg PO DAILY [facility] Last Admin: 11/27/16 09:06 Dose: 25 mg Olanzapine (Zyprexa) 20 mg PO 2100 [facility] Last Admin: 11/27/16 19:53 Dose: 20 mg Pantoprazole Sodium (Protonix Tab) 40 mg PO ACB [facility] Last Admin: 11/27/16 09:05 Dose: 40 mg Fluticasone/Salmeterol (Advair Hfa) 2 puff INH BID [facility] Last Admin: 11/27/16 07:39 Dose: 2 puff Sucralfate (Carafate) 1 gm PO AC30 [facility] Last Admin: 11/27/16 17:09 Dose: 1 gm Tiotropium [place] (Spiriva) 1 cap ORAL INH DAILY [facility] Last Admin: 11/27/16 09:46 Dose: 1 cap Subjective: Pt seen and chart examined. Nursing reports pt is doing well. Sleeping well and has a good appetite. No behaviors noted. On face to face the pt states she is doing well. She states she does not really want to go to [place] but respects her daughters wishes. She states she feels safe for D/C. Tolerating meds Start Time: 17:15 Stop Time: 17:30 Mental Status Exam Vitals: Last Vital Signs Temp 98.8 F 11/27/16 15:54 Pulse 87 11/27/16 15:54 Resp 16 11/27/16 15:54 BP 126/74 11/27/16 15:54 Pulse Ox 96 11/27/16 15:54 Height: 1.65 m Weight: 62.1 kg - Mental Status Exam Muscle Strength/Tone: Normal Dressing: Casual Grooming: Fair Attitude: Cooperative Motor Activity: Normal Eye Contact: Fair Speech: Pressured Volume: Normal Rhythm: Appropriate Rhythm Orientation: Oriented X4 Mood: Euthymic Rate of Thoughts: Pressured Thought Organization: Tangential Associations: Flight of Ideas Abstract Reasoning: Poor abstract reasoning Thought Content: Normal Perception/Psychotic: Perception Normal Fund of Knowledge: Appropriate Memory: Grossly Intact Suicidal Ideation: None Homicidal Ideation: None Insight: Fair Judgement: Fair Impulse Control: Fair - Laboratory Result Diagrams: 11/27/16 05:23 11/27/16 05:23 Laboratory Results - last 24 hr 11/27/16 11/27/16 05:23 05:23 WBC 12.1 H RBC 3.27 L Hgb 9.2 L Hct 29.5 L MCV 90.2 MCH 28.1 MCHC 31.2 RDW Std Deviation 53.1 H Plt Count 214 MPV 11.4 Immature Gran % (Auto) 0.1 Neut % (Auto) 24.4 L Lymph % (Auto) 15.2 L [place] % (Auto) 5.2 Eos % (Auto) 54.6 H Baso % (Auto) 0.5 Neut # 3.0 Lymph # 1.8 [place]les # 0.6 Eos # 6.6 H Baso # 0.1 Abs Immat Gran (auto) 0.01 Turbidity < 20 Sodium 144 Potassium 3.9 Chloride 109 H Carbon Dioxide 30 Anion Gap 5 BUN 16.0 Creatinine 0.9 GFR Calculation 61 BUN/Creatinine Ratio 18 Glucose 76 Calculated Osmolality 277 Calcium 9.1 Icterus Index < 2 Specimen Hemolysis < 15 Assessment and Plan (1) Bipolar disorder, current episode manic w/o psychotic features, severe Current visit: Yes Status: Acute Hospital Course Summary Disclaimer: The visit summary below is not to be considered part of the above Progress Note. Hospital Course: 11/15/16 hospitalist consult Bipolar disorder/dementia -Agree with admission to [facility]. Adjust meds per psych. Encourage patient to participate in unit activities. Provide safe environment. UTI -Given her abnormal urinalysis, urinary symptoms and leukocytosis, will treat with nitrofurantoin 100 mg twice a day for 7 days. Adjust therapy as needed once culture is resulted. Asthma -Continue Advair and Spiriva for her asthma. If she should require DuoNeb treatment, this can be ordered. Hypertension -Restart Cozaar. Monitor pressures. As she was not taking any other medication other than her thyroid, will add one antihypertensive back at a time. Will add back in amlodipine 5 mg if pressures are not controlled. Hyperlipidemia -Continue atorvastatin GERD -As patient has been off of all of her medicines except for Synthroid, will wait to add back in her Protonix, Carafate and Reglan. If she has no GI complaints, no reason to restart these medications. (Carafate, Protonix, Reglan are on med list from most recent office visit with PCP) Osteoporosis Will hold calcium and vitamin D during hospitalization, but can resume on dismissal Postsurgical hypothyroidism -Continue Synthroid at current dose. Her TSH was slightly low at 0.25, however, given that it sounds like she was taking more than one Synthroid a day, this is expected. She will need repeat TSH in the outpatient setting in approximately 6 weeks. Hospitalist team will plan to follow patient to manage chronic medical problems throughout her stay. At discharge, patient's care will return to Dr.Lei Andrew (or whoever she has decided to see as her PCP at that time) 11/16/16 10:09 Continue current care 11/16/16 15:36 Continue supportive care. Patient remains hyperverbal and manic.- per attending. Continue macrobid for UTI- await cultures- may need to adjust. Ongoing leukocytosis- repeat CBC in AM. Continue Losartan. Restart lower dose Norvasc. Ginny may partially be due to hyperactive thyroid- pt. was overtaking synthroid. Plan to recheck TSH in 4-6 weeks. Recent admission for epigastric pain. Restart PPI/Carafate. 11/17/16 12:47 Increase Zyprexa to 10mg at HS 11/18/16 09:10 Continue supportive care. Continue macrobid for UTI-culture is sensitive to all antibiotics tested, but macrobid was not on the list. As patient is doing better since starting medication, will continue for the full 7 day course. Continue Losartan and Norvasc for HTN Plan to recheck TSH in 4-6 weeks. PPI and Carafate restarted yesterday - patient is doing well. Zyprexa increased to 10mg yesterday - per psych 11/18/16 18:56 Increase Zyprexa to 15mg at HS 11/19/16 16:50 Increase Zyprexa to 20mg at HS 11/20/16 18:11 Pt's speech remains slightly pressured and tangential but it is improving. Will continue current meds 11/21/16 19:10 DIANDRA and RIPA on Friday to determine placement options 11/22/16 UTI, acute. * UA culture and sensitivities revealed pansensitive E.coli and Klebsiella pneumoniae. Patient remains on Macrobid to be completed today, 11/22. Continue to monitor for recurrent symptoms. Patient remains afebrile and denies dysuria. Repeat CBC in AM to monitor recent leukocytosis and blood counts. Schizoaffective disorder with acute ignny, improving. * Patient appears to be improving. Continue care per psychiatric team. Zyprexa was increased to 20mg QHS with improved behaviors. Continue to provide safe and supportive environment. Encourage participation in floor actives. CM working on placement and anticipate discharge in near future. Hypertension, chronic. * Blood pressure well controlled. Continue home losartan and Norvasc and monitor closely. Hyperlipidemia, chronic. * Continue home Lipitor and follow as outpatient with PCP. Hypothyroidism, chronic, with acute hyperthyroidism. * TSH on admission was low at 0.25. Patient reportedly on Synthroid 75 mcg. Will recheck TSH with free T4 for further evaluation. May need to decrease Synthroid dose if TSH remains low. Consider consult to Dr. Julian. GERD, chronic. * Continue Protonix and Carafate for GI protection and GERD. Anemia, chronic. * Hemoglobin 10.6 on admission. Will continue to monitor periodically throughout admission. Recheck CBC in AM to monitor blood counts. 11/22/16 17:33 Pt remains irritable and labile but improving. Continue current care 11/23/16 13:43 Continues to improve. Continue current care 11/24/16 17:10 Continue current care. Testing Friday11/25/16 18:15 Pt doing better. Family looking at [place] placement 11/26/16 Free T3 and T4 studies were normal. Pt was overdosing herself on Synthroid prior to admission - follow in outpatient setting. Leukocytosis - improving. Anemia - hgb decreased to 9.5. 11/26/16 20:45 Pt fairly stable. Continue current care 11/27/16 20:07 Doing well. Plan D/C for tomorrow
--- NOTE | 2016-11-27 20:56 | Discharge Instructions ---
Discharge Plan - Med Rec/Dispo Referrals/Follow Up: [facility] [Provider Group] ([facility] follow-up. Walk-ins welcome, no appointment necessary Friday-Friday, 8 a.m. to 3:30 p.m., closed on [facility] holidays [address] [place] [address] Call [phone] for more information.) Keeley Torre DO [Physician] - (Dr. Rafita Torre will see patient during rounds at the facility. ) Additional Instructions: Discharge Diagnosis: Bipolar I most recent episode manic Reasons for Admission: Exhibiting an exacerbation of those symptoms AED increased anxiety, intrusively walking into other people's rooms, and refusing meds. IN CASE OF PSYCHIATRIC EMERGENCY, CONTACT GENERATIONS STAFF AT [phone] ( available 24 hrs daily). Prescriptions: New OLANZapine [ZyPREXA] 20 mg PO 2100 #30 tablet No Action Amlodipine [Norvasc] 5 mg PO DAILY Metoclopramide [Reglan] 10 mg PO TID Refresh Plus 1 drop EACH EYE BID Losartan Potassium [Cozaar] 25 mg PO DAILY Tiotropium [place] [Spiriva Respimat] 1.25 mcg INH DAILY Sucralfate [Carafate] 1 gm PO TID Fluticasone/Salmeterol [Advair Hfa 115-21 Mcg Inhaler] 12 gm INH BID Atorvastatin [Lipitor] 10 mg PO DAILY Levothyroxine Sodium 75 mcg PO ACB Cholecalciferol (Vitamin D3) [Vitamin D3] 1,000 unit PO DAILY Pantoprazole Sodium [Protonix] 1 tab PO ACB Calcium Gluconate 500 mg PO TID Multivitamin [One Daily] 1 each PO DAILY Discharge Instructions/Outpatient Orders: Criteria for Antipsychotic Use Location: Determined By Patient Final Provider Discharge Instructions Location: Determined By Patient - Disposition 01 Discharged Home, Self-Care
[2016-11-28] MEDS: LEVOTHYROXINE 75 MCG TABLET PO SCH (05:35)
[2016-11-28] MEDS: PANTOPRAZOLE 40 MG TABLET PO SCH (05:35)
[2016-11-28] MEDS: SALMETEROL INH SCH (07:44)
[2016-11-28] MEDS: FLUTICASONE INH SCH (07:44)
[2016-11-28 07:52] VITALS: BP 121/65; PULSE 85; RESP 18; TEMP 98.7; O2SAT 92
[2016-11-28] MEDS: LOSARTAN 50 MG TABLET PO SCH (08:11)
[2016-11-28] MEDS: AMLODIPINE 2.5 MG TABLET PO SCH (08:11)
[2016-11-28] MEDS: CALCIUM CARBONATE 500 MG TABLET PO SCH (08:12)
[2016-11-28] MEDS: SUCRALFATE 1 GM TABLET PO SCH (08:12)
--- NOTE | 2016-11-28 09:27 | Discharge Instructions ---
Discharge Plan - Med Rec/Dispo Referrals/Follow Up: [facility] [Provider Group] (Brittani Medinalino Ivy, ENDY under Dr. Elizabeth on 12/27/16 at 9:00 am for Mental Health follow-up. Arrive 10 minutes early; Bring Photo ID and Ins. card. [facility] [place] [address]) Keeley Torre DO [Physician] - (Dr. Rafita Torre will see patient during rounds at the facility. Please follow up on low TSH and anemia; iron studies pending.) [place] Instructions: Bipolar Disorder (GEN) Additional Instructions: Discharge Diagnosis: Bipolar I most recent episode manic Reasons for Admission: Exhibiting an exacerbation of those symptoms AED increased anxiety, intrusively walking into other people's rooms, and refusing meds. IN CASE OF PSYCHIATRIC EMERGENCY, CONTACT GENERATIONS STAFF AT [phone] ( available 24 hrs daily). Medical follow up (Recommendations from Hospitalist Team): Please follow up on anemia. Her hgb dropped from 11.2 on 11/14/16 to 9.2 on . Iron studies were ordered and were pending on day of discharge. Stool for occult blood also ordered but not collected. Carafate and Protonix were continued. Also, her TSH was low at 0.25 and on repeat 0.36 with normal free T4 (1.44) and free T3 (3.45), but this was thought to be secondary to the patient taking extra Synthroid prior to admission. Please follow up on abnormal TSH level in 4- 6 months. Reglan was stopped at time of discharge due to medication interactions. She was treated with a 1-week course of Macrobid for E. coli & Klebsiella pn. UTI. This was completed on 11/22/16. She had persistent leukocytosis with WBC ranging from 11.2-12.2. Prescriptions: New OLANZapine [ZyPREXA] 20 mg PO 2100 #30 tablet Continue Amlodipine [Norvasc] 5 mg PO DAILY Refresh Plus 1 drop EACH EYE BID Losartan Potassium [Cozaar] 25 mg PO DAILY Tiotropium [place] [Spiriva Respimat] 1.25 mcg INH DAILY Sucralfate [Carafate] 1 gm PO TID Fluticasone/Salmeterol [Advair Hfa 115-21 Mcg Inhaler] 12 gm INH BID Atorvastatin [Lipitor] 10 mg PO DAILY Levothyroxine Sodium 75 mcg PO ACB Cholecalciferol (Vitamin D3) [Vitamin D3] 1,000 unit PO DAILY Pantoprazole Sodium [Protonix] 1 tab PO ACB Calcium Gluconate 500 mg PO TID Multivitamin [One Daily] 1 each PO DAILY Discontinued Metoclopramide [Reglan] 10 mg PO TID Discharge Instructions/Outpatient Orders: Criteria for Antipsychotic Use Location: Determined By Patient Final Provider Discharge Instructions Location: Determined By Patient
[2016-11-28] MEDS: TIOTROPIUM 18mcg/cap HANDIHALER ORAL INH SCH (09:31)
== END 2016-11-28 12:30 | disposition home or self-care (01) | DRG 885 ==
LOC: ED 18:56 → GEN 21:43
PROVIDERS: ADMIT Psychiatry & Neurology Psychiatry; ATTEND Psychiatry & Neurology Psychiatry